=== PATIENT | female | born 1955 | race Caucasian/White ===

== ENCOUNTER 2018-05-08 13:00 | Outpatient (RCR) | payer OTHER, SELFPAY ==
--- NOTE | 2018-01-09 17:37 | HP.PTEVAL ---
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 Date of Evaluation: 01/09/18 Physical Therapist: Jeannie Manuel - Visit Plan Frequency: 2x /Week Duration: 4 Weeks Plan: 2X/ week for 4 weeks for AT for R IT band stretching, core stability, hip strengthening, foam rolling to R IT band, deep water hang with HEP. PT was given wall IT band stretch with keeping her trunk upright (she was doing this at home with a flexed trunk which was not stretchign the IT band). - Subjective Subjective: Pt has been dealing with sciatica since April. The pain is more across the R hip and down to about mid lateral thigh. A little across the LB but mostly in the hip. Incidious onset. When she goes to get up it is bothersome. She can sit and stand but transitions and standing in one spot bother her. Once she gets going it is fine. She has had a cortizone shot in her R hip and it has helped somewhat. She has had tingling in B heels...it does not last long and it is not genrall at the same time. She is not DM. L foot bunionectomy a few years ago and now she has to have surgery again. She has had an x-ray and an MRI a few weeks ago. Going up stairs really bothers it, laying on it bothers is. Lying on side on on back in bed bothers it. Pt has had PT for this and she had traction and that helped temporarily. Pt reports that her hip hurts worse than her back. She takes no meds except once in awhile an Alieve. - Pain Back pain Pain Intensity (Out of 10): 1 Pain Intensity Range: 8 R hip pain Pain Intensity (Out of 10): 3 Pain Intensity Range: 8 - Objective Gait: Walks with decrease stance time on the R LE. Flexability: Tight R IT Band, good R piriformis length (pt was doing Wall IT band stretch but was doing it with a flexed trunk. She felt more of the stretch with trunk into extension. Palpation: tight at greater trochanter and along IT band. No tenderness along R piriformis muscle belly. LE MMT: hip flex R 3+/5 and L 4/5, hip abd R 3-/5 and L 4-/5, able to do 3/4 ROM bridge, B hip extension 3+/5, Knee flex R 4-/5 and L 4/5, B knee ext 4/5. -SLUMP test. Prone press up 3/4 normal ROM with no pain....[facility] pt reports that it makes no difference in the hip pain. - Goals Goal 1:: I HEP Goal Time Frame: 4-6 Weeks Goal 2:: decrease hip pain and back pain to 1/10 or less with ADL's and transitions such as sit to stand Goal Time Frame: 4-6 Weeks Goal 3:: Increase R hip by 1/2 muscle grade (MMT at the time of eval LE MMT: hip flex R 3+/5 and L 4/5, hip abd R 3-/5 and L 4-/5, able to do 3/4 ROM bridge, B hip extension 3+/5, Knee flex R 4-/5 and L 4/5, B knee ext 4/5). Goal Time Frame: 4-6 Weeks Goal 4:: No pain with standing R IT band stretch and perform with proper form Goal Time Frame: 4-6 Weeks - Rehabilitation Potential Rehabilitation Potential: Good - Anticipated Interventions Patient/Client Instruction: Educate patient on: Plan of Care For the Purpose of:: To decrease pain, To decrease swelling/inflammation, To increase ROM, To improve nutrient delivery to tissue, To improve muscle performance and motor function, To improve ability to perform ADL's, To increase tolerance to activity/condition/position, To improve performance and independence with ADL's, To improve ability of physical actions for home/community/work/leisure, To improve gait and locomotor functions, To improve health of tissue, To decrease soft tissue restriction, To increase flexibility/ROM Therapeutic Exercise to Include: Strength training, Flexibilty training, In an aquatic setting, Passive ROM, Active ROM, Dynamic Lumbar Stabilization For the Purpose of:: To decrease pain, To decrease swelling/inflammation, To increase ROM, To improve nutrient delivery to tissue, To improve muscle performance and motor function, To improve ability to perform ADL's, To increase tolerance to activity/condition/position, To improve performance and independence with ADL's, To improve gait and locomotor functions, To improve health of tissue, To decrease soft tissue restriction, To improve endurance Manual Therapy Techniques to Include: Passive ROM, Soft tissue mobilization For the Purpose of:: To decrease pain, To improve nutrient delivery to tissue, To improve muscle performance and motor function, To increase tolerance to activity/condition/position, To improve health of tissue, To decrease soft tissue restriction, To increase flexibility/ROM Thank you for the opportunity to evaluate your patient. For Medicare and Medicare HMO plans, please review the plan of care and approve it. It will need to be FAXED BACK to us at [phone] for Medicare purposes. Please let me know if there are questions or concerns regarding this plan of care. Physician Signature: Date:
--- NOTE | 2018-04-03 17:51 | HP.PTREVAL_ITS ---
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 Please see the progress note below for an update on the physical therapy plan of care! Subjective: Pt came into the clinic saying that she saw Dr Broderick on Monday and she reports that the Dr wanted massage and DN. Pt reports that the Dr was suppossed to send over the PT order which we did not recieve. Pt reports that she is much better since the water therapy and she is even sleeping currently. SHe just started with the weights in the pool.... She is thinking about joining to do a health and wellness memebership to continue with the water therapy. Sitting is no back pain. When she goes to stand up her pain is about a 2/10 pain with transitions. She reports that every step she takes that she feels cracking in her spine. Objective/Function: pt was able to run through her pool indep. routine needing some vc's and tips on how to hold correct posture and progress the ex. Plan Plan: Pt to get order for DN and for neck pain. A NEW EVAL for neck pain will have to be done. Trial of DN to back and R hip. Pt to look into post-rehab membership to keep up I water exercises on her own. Pt to try 1-2 sessions of DN to see if it helps her LBP. Goals Goal 1:: I HEP Goal Time Frame: 4-6 Weeks Goal Progress: Goal Met Goal 2:: decrease hip pain and back pain to 1/10 or less with ADL's and transitions such as sit to stand Goal Time Frame: 4-6 Weeks Goal Progress: Progressing Goal 3:: Increase R hip by 1/2 muscle grade (MMT at the time of eval LE MMT: hip flex R 3+/5 and L 4/5, hip abd R 3-/5 and L 4-/5, able to do 3/4 ROM bridge , B hip extension 3+/5, Knee flex R 4-/5 and L 4/5, B knee ext 4/5). Goal Time Frame: 4-6 Weeks Goal Progress: Progressing Goal 4:: No pain with standing R IT band stretch and perform with proper form Goal Time Frame: 4-6 Weeks Goal Progress: Goal Met Anticipated Interventions Patient/Client Instruction: Educate patient on: Plan of Care For the Purpose of:: To decrease pain, To decrease swelling/inflammation, To increase ROM, To improve nutrient delivery to tissue, To improve muscle performance and motor function, To improve ability to perform ADL's, To increase tolerance to activity/condition/position, To improve performance and independence with ADL's, To improve ability of physical actions for home/ community/work/leisure, To improve gait and locomotor functions, To improve health of tissue, To decrease soft tissue restriction, To increase flexibility/ ROM Therapeutic Exercise to Include: Strength training, Flexibilty training, In an aquatic setting, Passive ROM, Active ROM, Dynamic Lumbar Stabilization For the Purpose of:: To decrease pain, To decrease swelling/inflammation, To increase ROM, To improve nutrient delivery to tissue, To improve muscle performance and motor function, To improve ability to perform ADL's, To increase tolerance to activity/condition/position, To improve performance and independence with ADL's, To improve gait and locomotor functions, To improve health of tissue, To decrease soft tissue restriction, To improve endurance Manual Therapy Techniques to Include: Passive ROM, Soft tissue mobilization For the Purpose of:: To decrease pain, To improve nutrient delivery to tissue, To improve muscle performance and motor function, To increase tolerance to activity/condition/position, To improve health of tissue, To decrease soft tissue restriction, To increase flexibility/ROM Please do not hesitate to contact me at [phone] by phone or Fax: if you have questions or concerns regarding this new plan of care! Sincerely, Jeannie Manuel
--- NOTE | 2018-04-18 09:25 | HP.PTEVAL2_ITS ---
Patient's Visit Information TRUMAN LAI is a 63 year old F referred to Physical Therapy by Hakeem Broderick with a diagnosis of OA of cervical spine, R cervical radiculopathy. Date of Evaluation: 04/11/18 Physical Therapist: Bharath Maxwell - Visit Plan Frequency: 2x /Week Duration: 4 Weeks Plan: Start with deept STM and DN to bilateral UT, levator scap, mid trap. Add in UT/levator scap stretching, pec stretching. Progress to postural strengthening once pain has reduced. - Subjective Subjective: Pt. is here today for her initial evaluation with diagnosis of OA of cervical spine, R cervical radiculopathy. Pt. reports having increased pain for 4-5 years, but has been worsening over the past few months. Worsens: work, lifting. Decrease pain: lying down, massage. Pt. has trialed most modalities and chiro minimal relief. There is always a baseline pain. Pt. does reports occassional radiatign of pain down R arm, but mostly only goes into shoulder and scapulea. Pt. has not trialed any exercises at this point in time. Pt. is hopeful to reduce symptoms in order to get back to all work/recreational activities without issues. - Pain Cervical spine Intensity: 5 Pain Intensity Range: 3, 8 - Objective Objective: POSTURE: Pt. has FH positioning, rounded shoulders, increased Tspine kyphosis and decreased lumbar lordosis. PALPATION: Increased tenderness at bilateral UT, B levator scapulea, B suboccipitals, B mid trap. NEUROLOGICAL: Pt. has normal neuro signs. ROM: CERVICAL SPINE: flexion - nil loss NE, ext min loss increase NW, rotation R min loss increase NW, rotation L min loss increase NW. Shoulders- bilaterally with in normal limits without increase in symptoms. MMT: cervical isometrics- 5/5 throughout. Shoulders- 5/5 throughout without increase in symptoms. SPECIAL testing- negative spurlings testing bilateraly. + reduction in symptoms with distraction testing. No relief or increase in symptoms with repeated movements. - Goals Goal 1:: Pt. to be I with HEP. Goal Time Frame: 4-6 Weeks Goal 2:: Pt. to have increased cervical ROM by 25% in all directions without increase in symptoms. Goal Time Frame: 4-6 Weeks Goal 3:: Pt. to sleep throughout the night with out increase in symptoms of R arm or cervical spine. Goal Time Frame: 4-6 Weeks Goal 4:: Pt. to completed work day with 0-1/10 pain in cervical spine and R arm. Goal Time Frame: 4-6 Weeks Goal 5:: Pt. to demonstrae improved posture througout PT session indicating increased postural awareness. Goal Time Frame: 4-6 Weeks - Rehabilitation Potential Physical Therapy Diagnosis: Pt. has signs and symptoms consistent with OA of cervical spine, R cervical radiculopathy. Pt. had no radicular symptoms this date, but reports some in recent history. Pt. has poor posture and marked tight musculature throughout cervical spine and scapular region. Pt. would benefit from PT address above issues with progression back to all work and recreational activiteis without limitations. Rehabilitation Potential: Good - Anticipated Interventions Patient/Client Instruction: Educate patient on: Condition, Plan of Care, Risk Factors, Benefits of Fitness Program For the Purpose of:: To improve safety, To improve health and function, To foster healthy habits, To improve decision making, To facilitate caregiver knowledge, To improve self management, To prevent re-injury, To improve ability to perform tasks related to life management, To improve tolerance to ADL's Therapeutic Exercise to Include: Strength training, Power training, Postural training, Flexibilty training, Passive ROM, Active ROM, Moustapha Exercises, Scapular Strength/Stabilization For the Purpose of:: To decrease pain, To increase ROM, To improve nutrient delivery to tissue, To increase oxygenation perfusion, To improve muscle performance and motor function, To improve ability to perform ADL's, To improve health of tissue, To decrease soft tissue restriction, To improve endurance Manual Therapy Techniques to Include: Trigger point massage, Mobilization, Passive ROM, Functional dry needling, Soft tissue mobilization For the Purpose of:: To decrease pain, To decrease swelling/inflammation, To increase ROM, To improve nutrient delivery to tissue, To increase oxygenation perfusion, To improve muscle performance and motor function, To improve ability to perform ADL's Ultrasound (thermal/non thermal): Yes For the Purpose of:: To decrease pain, To decrease swelling/inflammation Thank you for the opportunity to evaluate your patient. For Medicare and Medicare HMO plans, please review the plan of care and approve it. It will need to be FAXED BACK to us at [phone] for Medicare purposes. Please let me know if there are questions or concerns regarding this plan of care. Physician Signature: Date:
--- NOTE | 2018-07-18 17:57 | HP.PTDCNRP_ITS ---
HP - Discharge Summary (1) - Patient Information TRUMAN LAI was seen in my office for initial evaluation on 01/09/18. The following Plan of Care was established for this patient: Initial Frequency: 2x /Week Initial Duration: 4 Weeks - Anticipated Interventions Patient/Client Instruction: Educate patient on: Plan of Care For the Purpose of:: To decrease pain, To decrease swelling/inflammation, To increase ROM, To improve nutrient delivery to tissue, To improve muscle performance and motor function, To improve ability to perform ADL's, To increase tolerance to activity/condition/position, To improve performance and independence with ADL's, To improve ability of physical actions for home/ community/work/leisure, To improve gait and locomotor functions, To improve health of tissue, To decrease soft tissue restriction, To increase flexibility/ ROM Therapeutic Exercise to Include: Strength training, Flexibilty training, In an aquatic setting, Passive ROM, Active ROM, Dynamic Lumbar Stabilization For the Purpose of:: To decrease pain, To decrease swelling/inflammation, To increase ROM, To improve nutrient delivery to tissue, To improve muscle performance and motor function, To improve ability to perform ADL's, To increase tolerance to activity/condition/position, To improve performance and independence with ADL's, To improve gait and locomotor functions, To improve health of tissue, To decrease soft tissue restriction, To improve endurance Manual Therapy Techniques to Include: Passive ROM, Soft tissue mobilization For the Purpose of:: To decrease pain, To improve nutrient delivery to tissue, To improve muscle performance and motor function, To increase tolerance to activity/condition/position, To improve health of tissue, To decrease soft tissue restriction, To increase flexibility/ROM This patient was last seen in our office 03/28/18. Pertinent comments regarding their Physical therapy will appear below: REYMUNDO PT At this point I will be discontinuing this patient from physical therapy. I would be happy to see this patient again in the future if found appropriate by the physician. Thank you! Jeannie Manuel
--- NOTE | 2018-07-18 17:57 | HP.PT.NRP(2) ---
HP - Discharge Summary (2) - Patient Information TRUMAN LAI was seen in my office for initial evaluation on 04/11/18. The following Plan of Care was established for this patient: Initial Frequency: 2x /Week Initial Duration: 4 Weeks Plan from Re-Evaluation: Pt. to trial on own for 2-3 weeks to determine if able to self manage. Pt. to follow up with PT if needed. I will DC case if I do not hear from here in ~5-6 weeks. - Anticipated Interventions Patient/Client Instruction: Educate patient on: Condition, Plan of Care, Risk Factors, Benefits of Fitness Program For the Purpose of:: To improve safety, To improve health and function, To foster healthy habits, To improve decision making, To facilitate caregiver knowledge, To improve self management, To prevent re-injury, To improve ability to perform tasks related to life management, To improve tolerance to ADL's Therapeutic Exercise to Include: Strength training, Power training, Postural training, Flexibilty training, Passive ROM, Active ROM, Moustapha Exercises, Scapular Strength/Stabilization For the Purpose of:: To decrease pain, To increase ROM, To improve nutrient delivery to tissue, To increase oxygenation perfusion, To improve muscle performance and motor function, To improve ability to perform ADL's, To improve health of tissue, To decrease soft tissue restriction, To improve endurance Manual Therapy Techniques to Include: Trigger point massage, Mobilization, Passive ROM, Functional dry needling, Soft tissue mobilization For the Purpose of:: To decrease pain, To decrease swelling/inflammation, To increase ROM, To improve nutrient delivery to tissue, To increase oxygenation perfusion, To improve muscle performance and motor function, To improve ability to perform ADL's Ultrasound (thermal/non thermal): Yes For the Purpose of:: To decrease pain, To decrease swelling/inflammation This patient was last seen in our office . Pertinent comments regarding their Physical therapy will appear below: DC PT At this point I will be discontinuing this patient from physical therapy. I would be happy to see this patient again in the future if found appropriate by the physician. Thank you! Jeannie Manuel
== END 2018-05-08 19:00 | disposition home or self-care (01) ==
LOC: PT 13:00
PROVIDERS: Family Provider Student in an Organized Health Care Education/Training Program; PCP Student in an Organized Health Care Education/Training Program; Visit Provider Student in an Organized Health Care Education/Training Program
DX: M47.817 Spondylosis without myelopathy or radiculopathy, lumbosacral region (principal); M54.17 Radiculopathy, lumbosacral region; M54.41 Lumbago with sciatica, right side; G89.29 Other chronic pain
CPT/HCPCS: 97110; 97113; 97140; 97161; 97164; 97530

== ENCOUNTER 2018-07-19 11:39 | Outpatient (RCR) | payer OTHER, SELFPAY | END 2018-07-19 11:39 | disposition home or self-care (01) | LOC: PT 11:39 | PROVIDERS: Family Provider Student in an Organized Health Care Education/Training Program; PCP Student in an Organized Health Care Education/Training Program; Visit Provider Student in an Organized Health Care Education/Training Program | DX: M47.892 Other spondylosis, cervical region (principal); M54.12 Radiculopathy, cervical region; M25.511 Pain in right shoulder; M19.011 Primary osteoarthritis, right shoulder ==

== ENCOUNTER → 2019-02-05 08:20 | Outpatient (CLI) | payer OTHER, SELFPAY ==
[2019-01-24 15:59] VITALS: BMI 24.3
[2019-02-05 10:55] LABS: Absolute Lymphocyte Count 1.56 X10^3/ul (0.83-4.51); Absolute Neutrophil Count 3.3 X10^3/uL (2.0-7.7); Basophil# 0.03 X10^3/uL; Basophil% 0.6 % (0-1); Eosinophil# 0.12 X10^3/uL; Eosinophils% 2.2 % (0-5); Hematocrit 43.8 % (37-47); Hemoglobin 14.6 g/dl (12.0-15.0); Lymphocyte # 1.56 X10^3/ul (4.0); Lymphocyte % 29.1 % (19-41); Mean Corp Hgb Conc 33.3 g/gl (32-36); Mean Corpuscular Hgb 29.6 pg (27.0-32.0); Mean Corpuscular Volume 88.8 fL (81-99); Mean Platelet Vol. 10.6 fl (6.2-12.0); Monocyte% 7.4 % (0-10); Neutrophil # 3.26 X10^3/uL (2.7-7.7); Neutrophil % 60.7 % (47-70); Platelet Count 220 K/mm3 (150-450); RBC Distribution Width CV 12.6 % (11.6-14.6); Red Blood Count 4.93 M/mm3 (4.2-5.4); White Blood Count 5.4 K/mm3 (4.4-11.0)
[2019-02-05 10:56] LABS: POSITIVE COUNT NO; POSITIVE DIFFERENTIAL NO; POSITIVE MORPHOLOGY NO
[2019-02-05 11:23] LABS: Hemoglobin A1c 5.4 % (4.2-6.3)
[2019-02-05 11:26] LABS: Vitamin B12 686 pg/mL (211-911); Vitamin D,25 Hydroxy 46.3 ng/mL (29.95-100.01)
[2019-02-05 11:29] LABS: ALB/GLOB Ratio 1.1 RATIO (0.9-2.4); AST(SGOT) 16 U/L (15-37); Alanine Aminotransfer ALT/SGPT 22 U/L (13-56); Albumin, Serum 3.7 g/dL (3.2-5.0); Alkaline Phosphatase 131 U/L (45-117); Anion Gap 6 (5-15); BUN 10 mg/dL (7-18); BUN/Creat Ratio 18.5 RATIO (10-20); Calcium,Total 9.1 mg/dL (8.5-10.1); Chloride 107 mmol/L (98-107); Cholesterol 202 mg/dL (200); Creatinine, Serum 0.54 mg/dL (0.55-1.02); EST Glomerular Filtration Rate 121 mL/min (>60); Est Glom Filt Rate - Afr Amer 147 mL/min (>60); Free T3 6.3 pg/mL (2.18-3.98); Globulin 3.5 g/dL (2.2-4.2); Glucose 77 mg/dL (74-106); High Density Lipoprotein 76 mg/dL; Potassium 4.2 mmol/L (3.5-5.1); Protein, Total 7.2 g/dL (6.4-8.2); Sodium Level 143 mmol/L (136-145); T4 Free Direct 1.16 ng/dL (0.76-1.46); Thyroid Stim Hormone (TSH) 0.09 uIU/mL (0.358-3.74); Triglycerides 50 mg/dL; Very Low Density Lipoprotein 10 mg/dL (5-40)
== END ==
PROVIDERS: Family Provider Student in an Organized Health Care Education/Training Program; PCP Student in an Organized Health Care Education/Training Program; Referring Provider Student in an Organized Health Care Education/Training Program; Visit Provider Student in an Organized Health Care Education/Training Program
DX: Z00.00 Encounter for general adult medical examination without abnormal findings (principal); R53.83 Other fatigue; E03.9 Hypothyroidism, unspecified; Z12.11 Encounter for screening for malignant neoplasm of colon
CPT/HCPCS: 36415; 80053; 80061; 82306; 82607; 83036; 84439; 84443; 84481; 85025

== ENCOUNTER → 2019-02-08 15:46 | Outpatient (CLI) | payer OTHER, SELFPAY ==
[2019-01-24 15:59] VITALS: BMI 24.3
== END ==
PROVIDERS: Family Provider Student in an Organized Health Care Education/Training Program; PCP Student in an Organized Health Care Education/Training Program; Referring Provider Student in an Organized Health Care Education/Training Program; Visit Provider Student in an Organized Health Care Education/Training Program
DX: Z00.00 Encounter for general adult medical examination without abnormal findings (principal); Z12.11 Encounter for screening for malignant neoplasm of colon
CPT/HCPCS: 82274

== ENCOUNTER 2019-03-23 16:24 | Inpatient (IN) | payer OTHER, SELFPAY ==
[2019-01-24 15:59] VITALS: BMI 24.3
[2019-03-23] VITALS (9 sets, daily range): BP systolic 157–186; BP diastolic 72–92; PULSE 52–77; RESP 14–20; TEMP 36.4–36.6; O2SAT 95–99; BMI 29.1; BMI 24.8
--- NOTE | 2019-03-23 16:33 | CT_ITS ---
STUDY: CT BRAIN WITHOUT CONTRAST REASON FOR EXAM: Female, 64 years old. Acute onset of dizziness, nausea and vomiting, headache, tingling in hands. RADIATION DOSAGE (If Supplied By Facility): CTDIvol = ( 44.99 ) mGy, DLP = ( 745.49 ) mGycm TECHNIQUE: Transaxial CT imaging of the brain was performed without administration of intravenous contrast material. Individualized dose optimization techniques were used for this CT. COMPARISON: No relevant priors. FINDINGS: Normal soft tissue structures. Normal calvarium. Normal size ventricles and extra-axial spaces for the patient's age. There are subtle areas of decreased attenuation within the white matter tracts of the supraventricular brain and posterior horn of the right internal capsule, consistent with microvascular disease versus other demyelinating changes. Normal basal ganglia and thalami. Normal brainstem. Normal cerebellum. There is no intracranial hemorrhage. There are no findings of an acute ischemic infarction. Normal visualized paranasal sinuses. CT/Brain/Head without Contrast IMPRESSION: Subtle chronic changes of microvascular ischemia versus other demyelinating process. One might consider correlation with MRI. Electronically Signed: Parth Escobedo MD at 17:54 EDT , Service support ,
[2019-03-23] MEDS: Ondansetron 4 MG/2 ML Vial IV (16:43)
[2019-03-23] MEDS: 0.9% Normal Saline 1,000 ML 1000 ML IV (16:44)
[2019-03-23 17:02] LABS: Absolute Neutrophil Count 4.1 X10^3/uL (2.0-7.7); Basophil# 0.02 X10^3/uL; Basophil% 0.3 % (0-1); Eosinophil# 0.09 X10^3/uL; Eosinophils% 1.4 % (0-5); Hematocrit 39.2 % (37-47); Hemoglobin 13.5 g/dl (12.0-15.0); Lymphocyte % 27.8 % (19-41); Mean Corp Hgb Conc 34.4 g/gl (32-36); Mean Corpuscular Hgb 29.7 pg (27.0-32.0); Mean Corpuscular Volume 86.2 fL (81-99); Mean Platelet Vol. 9.8 fl (6.2-12.0); Monocyte# 0.49 X10^3/uL; Monocyte% 7.6 % (0-10); Neutrophil # 4.06 X10^3/uL (2.7-7.7); Neutrophil % 62.7 % (47-70); Platelet Count 187 K/mm3 (150-450); RBC Distribution Width CV 12.4 % (11.6-14.6); Red Blood Count 4.55 M/mm3 (4.2-5.4); White Blood Count 6.5 K/mm3 (4.4-11.0)
[2019-03-23 17:03] LABS: POSITIVE COUNT NO; POSITIVE DIFFERENTIAL NO; POSITIVE MORPHOLOGY NO
[2019-03-23 17:11] LABS: Anion Gap 8 (5-15); BUN 12 mg/dL (7-18); BUN/Creat Ratio 18.4 RATIO (10-20); Calcium,Total 8.7 mg/dL (8.5-10.1); Chloride 107 mmol/L (98-107); Creatinine, Serum 0.65 mg/dL (0.55-1.02); EST Glomerular Filtration Rate 98 mL/min (>60); Est Glom Filt Rate - Afr Amer 118 mL/min (>60); Estimated Creatinine Clearance 73.28 ml/min; Glucose 118 mg/dL (74-106); Potassium 3.1 mmol/L (3.5-5.1); Sodium Level 141 mmol/L (136-145)
[2019-03-23] MEDS: Metoclopramide 10 MG/2 ML Vial 5 MG IV ×2 (17:12→18:39)
--- NOTE | 2019-03-23 17:44 | ED.VIS.GEN ---
History of Present Illness Chief Complaint: Dizziness Detail of Chief Complaint: Retro-orbital discomfort and occipital headache Informant: Patient, Family Onset: Today Context: Sudden Onset Timing: Continuous Quality: Retro-orbital pressure and occipital headache with nausea and vomiting Current Severity: Mild Maximum Severity: Moderate Worsened by: Nothing per patient Relieved by: Nothing per patient Associated Symptoms: No ocular symptoms positive nausea and vomiting Narrative: Patient is a 64-year-old woman who presents with a retro-orbital discomfort that started this morning followed by occipital headache associated with nausea and vomiting. Patient also complains of vertigo. She states is unable to stand. She denies double vision, blurred vision loss of vision. She denies trouble speech or swallowing. Denies paresthesia, anesthesia motors. Denies cardiac arrest story symptoms. She reports movement of her head does not exacerbate her symptoms. There is a family history of subarachnoid hemorrhage/aneurysm. Prior similar symptoms: No Recent Illness/Hospitalization: No Past Medical History - Allergies and Home Meds Allergies/Adverse Reactions: Allergies morphine Allergy (Mild, Verified 01/24/19 16:00) unknown sulfamethoxazole [From Bactrim] Allergy (Mild, Verified 01/24/19 16:00) unknown tea tree Allergy (Mild, Verified 01/24/19 16:00) unknown trimethoprim [From Bactrim] Allergy (Mild, Verified 01/24/19 16:00) unknown Primary Care Physician: Hakeem Broderick DO [Primary Care Provider] - Prior records reviewed: No Surgical History: noncontributory - Multiple orthopedic operations Lives: Alone Smoking Status: Former smoker Drugs: None Review of Systems General: Reports: Chills. Denies: Fever, Malaise, Subjective, Sweats, Weight loss, - Eyes: Denies: Visual changes - bilaterally, Blurred Vision - bilaterally, Diplopia ENT: Denies: Bilateral ear pain, Rhinorrhea, Sore throat Cardiovascular: Denies: Chest pain, Palpitations Respiratory: Denies: Dyspnea, Cough, Dyspnea on exertion Gastrointestinal: Reports: Nausea, Vomiting. Denies: Abdominal pain, Diarrhea, Constipation, Melena, Hematochezia Genitourinary: Denies: Dysuria, Hematuria, Frequency Musculoskeletal: Denies: Myalgias, Arthralgias, Neck pain, Back pain, Swelling, Extremity Pain Skin: Denies: Rash, Wounds Neurological: Reports: Headache, Weakness. Denies: Parasthesia, Numbness Psych: Denies: Depression, Anxiety Endocrine: Denies: Polyuria, Polydipsia Hematologic: Denies: Easy bruising, Easy bleeding Physical Exam Vital Signs/Narrative: Vital Signs Temp Pulse Resp BP Pulse Ox 03/23/19 16:33 71 16 160/92 H 97 03/23/19 16:26 97.5 F L 68 16 160/92 H 99 Inital Vital Signs reviewed: Yes General: Well nourished, Well developed, Acute Distress Head: Normocephalic, Atraumatic Eyes: Perrl, EOMI. Negative for: Pale conjunctiva, Scleral icterus, - ENT: No rhinorrhea, TM's clear, Dry mucous membranes Cardiovascular: Regular rate, Regular rhythm, No murmurs, Normal S1, Normal S2 Respiratory: No distress, CTA bilaterally, Chest nontender Abdomen: Soft, Nontender, Nondistended, Normal bowel sounds, No masses Back: Nontender, Normal Inspection. Negative for: CVA tenderness, Spinal tenderness Extremities: Nontender, No edema Skin: No rash, No Trauma, Pallor. Negative for: Cyanosis, Diaphoresis, Jaundice Neurological: Alert, Oriented x3, Cranial nerves II-XII grossly intact, Normal Strength, Normal Sensation, Normal DTR Psychological: Normal affect, Normal Mood Diagnostic/Tx/Re-eval - Medical Decision Making Abrupt onset of headache nausea vomiting will obtain CT of the head to evaluate for intracranial bleed and specifically subarachnoid hemorrhage. None noted. Blood work is unremarkable. Potassium is slightly low at 3.1 and glucose is slightly elevated at 118. We will perform Thelma-Hallpike maneuver to determine if this exacerbates her dizziness. Since work-up is unremarkable and she has a nonfocal neurologic exam will perform Thelma-Hallpike maneuver. If negative will perform eye askew test and hint test. [place]-Hallpike maneuver was performed with repeat reduction of her symptoms with nystagmus. Patient is presently actively vomiting. Will administer an additional dose of Reglan and 2.5 mg of Benadryl to prevent dystonic reaction. 10 to 15 minutes after she receives additional dose of Reglan and will perform Natty maneuver. Procedures Procedure(s): Natty maneuver performed. Patient's vertigo and nystagmus resolved. She still complains of mild nausea. Plan is to discharge with prescription for Valium 2 mg 3 times daily #10 and Zofran 4 mg ODT #5 ED Disposition - Plan for ED Patient: Disposition: Home or Assisted Living Diagnosis: Benign paroxysmal positional vertigo Instructions: ED BPV Vertigo Prescriptions: Ondansetron [Zofran Odt] 4 mg PO Q8H PRN PRN #5 tablet PRN Reason: Nausea Diazepam [Valium] 2 mg PO TID 3 Days #10 tablet Referrals: Hakeem Broderick DO [Primary Care Provider] - As Needed Additional Instructions: Your prescription was electronically transmitted to [facility] pharmacy on [address] your designated pharmacy of choice.
[2019-03-23] MEDS: DiphenhydrAMINE 50 MG/ML Syringe 12.5 MG IV (18:39)
--- NOTE | 2019-03-23 20:20 | ED.RN ---
pt was to be discharged. iv d/c and covered with gauze. this rn assisted pt in dressing. pt requested to use restroom, and wheeled in wheelchair to restroom. pt began vomiting again. dr. guzman informed. reports she is not to be discharged. pt placed in room placed into gown and on monitor. called for ekg.
--- NOTE | 2019-03-23 20:30 | HP.PCM_ITS ---
Problem List (1) Vertigo Status: Acute History of Present Illness Date of Admission: 03/23/19 Chief Complaint: VERTIGO The patient is a 64 year old F with a significant history of hypothyroidism; and depression who presented to the emergency department because of vertigo that started few hours before presentation. Her vertigo worsens when she moves her head; and it improves when the head is still. Associated with her symptoms is occipital headache; nausea and vomiting. Also reportedly she felt hot. At the emergency department she felt better after Natty maneuver. However after using the restroom her vertiginous symptoms returned and she looked pale. Subsequently she was given Valium and admitted. Past Medical History Medical History: Medical History (Last Reviewed 03/23/19 @ 21:15 by Logan Roy MD) Arthritis M19.90 Hay fever J30.1 Hemorrhoids K64.9 Shoulder pain M25.519 Thyroid disease E07.9 Chronic neck and back pain M54.2, M54.9, G89.29 Allergies morphine Allergy (Mild, Verified 01/24/19 16:00) unknown sulfamethoxazole [From Bactrim] Allergy (Mild, Verified 01/24/19 16:00) unknown tea tree Allergy (Mild, Verified 01/24/19 16:00) unknown trimethoprim [From Bactrim] Allergy (Mild, Verified 01/24/19 16:00) unknown Home Medications: Ambulatory Orders Medication Instructions Recorded fluoxetine 40 mg capsule 40 mg PO DAILY 01/24/19 Diazepam [Valium] 2 mg PO TID 3 Days #10 tablet 03/23/19 Ondansetron [Zofran Odt] 4 mg PO Q8H PRN PRN #5 tablet 03/23/19 Surgical History: rotator cuff repair, - - Wrist surgery; left foot surgery. Lives: Alone Smoking Status: Former smoker Drugs: None - *Family History Maternal History Items: Diabetes, Heart Disease, - - Maternal grandmother had brain aneurysm and subarachnoid hemorrhage Paternal History Items: Cancer - Lung cancer Review of Systems Constitutional: Denies: Chills, Fever, Weight Change HEENT: Reports: Head Aches. Denies: Sinus Congestion, Sinus Drainage Cardiovascular: Denies: Chest Pain, Palpitations Respiratory: Denies: Cough, Shortness of breath at rest, Sputum production Gastrointestinal: Reports: Nausea, Vomiting. Denies: Abdominal Pain Genitourinary: Denies: Dysuria Musculoskeletal: Denies: Joint Pain, Joint Tenderness Skin: Denies: Rash, Wounds Neurological: Denies: Numbness, Tingling, Focal weakness Psychiatric: Denies: Anxiety, Depression, Homicidal Ideations, Suicidal Ideations Hematologic/ Lymphatic: Denies: Easy Bruising, Easy Bleeding VTE Information - Inpt Only VTE Present on Admission: No VTE Mechan Device Prophylaxis: None VTE Pharm Prophylaxis ordered?: Yes Patient Problems: Active and Suspected Problems (Last Reviewed 03/23/19 @ 21:12 by Logan Roy MD) Benign paroxysmal positional vertigo (Acute) Vertigo (Acute) - Physical Exam General: Alert, Oriented x3, Cooperative HEENT: Atraumatic, PERRLA, EOMI, Normocephalic Neck: Supple, No JVD, Negative Carotid Bruits Lungs: Clear to auscultation, Normal air movement Cardiovascular: Regular rate, No murmurs Abdomen: Bowel Sounds Present, Soft, Non Tender Extremities: No edema, Capillary Refill Less than 3 Seconds Skin: No rashes, No breakdown Musculoskeletal: No Tenderness to Palpation of Joints or Extremities Neurological: Cranial nerves II-XII grossly intact, - - Thelma-Hallpike maneuver was unremarkable. Psych/Mental Status: Normal Affect, Appropriate Vital Signs Temp Pulse Resp BP Pulse Ox 97.5 F L 69 16 159/83 H 96 03/23/19 16:26 03/23/19 19:00 03/23/19 19:00 03/23/19 19:00 03/23/19 18:02 Oxygen Delivery Method Room Air Weight: 74.6 kg Body Mass Index (BMI) 29.1 Laboratory Tests Past 24 Hrs 03/23/19 03/23/19 16:50 16:50 WBC 6.5 RBC 4.55 Hgb 13.5 Hct 39.2 MCV 86.2 MCH 29.7 MCHC 34.4 RDW 12.4 RDW Differential 39.0 Plt Count 187 MPV 9.8 Immature Gran % (Auto) 0.200 Neut % (Auto) 62.7 Lymph % (Auto) 27.8 [place] % (Auto) 7.6 Eos % (Auto) 1.4 Baso % (Auto) 0.3 Absolute Neuts (auto) 4.1 Absolute Lymphs (auto) 1.80 Total Counted Not Reportable Sodium 141 Potassium 3.1 L Chloride 107 Carbon Dioxide 26.0 Anion Gap 8 BUN 12 Creatinine 0.65 Estim Creat Clear Calc 73.28 Est GFR (MDRD) Af Amer 118 Est GFR (MDRD) Non-Af 98 BUN/Creatinine Ratio 18.4 Glucose 118 H Calcium 8.7 Assessment/Plan All Active Problems (Last Reviewed 03/23/19 @ 21:12 by Logan Roy MD) Benign paroxysmal positional vertigo (Acute) Vertigo (Acute) The patient is a 64 year old F with a significant history of hypothyroidism; and depression who presented to the emergency department because of vertigo that worsens with head movement and was noted to improved with Natty maneuver at the emergency department. Vertigo Most likely benign paroxysmal positional vertigo. CT of the head was unremarkable Physical therapy to teach patient vestibular exercises and to do Natty maneuver. 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 Different diagnosis include central source of vertigo; M?ni?re's disease vestibular neuritis. Permissive hypertension. Control blood pressure with labetalol for systolic blood pressure of more than 220 or diastolic blood pressure of more than 120. Continue permissive hypertension until about 4 PM of 03/24/2019. MRI/MRAM of head; brain; and neck. Scheduled meclizine; and PRN Ativan ordered. Because of prolonged QT Zofran was not ordered. Reglan as needed. Received normal saline bolus at emergency department. Lactated Ringer's ordered. Hypokalemia On presentation potassium was 3.1 K-Dur 60mg ordered. Lactated Ringer's ordered. Trend BMP. QT prolongation Check magnesium level. Hypothyroidism [place] Thyroid continued Depression Fluoxetine ordered. DVT Prophylaxis Subcutaneous Lovenox. Code Visit OBSV E&M: 42344 Initial observation care L3
--- NOTE | 2019-03-23 20:34 | ED.RN ---
PT ATTEMPTED TO DISCHARGE HOME, UNABLE TO GET INTO CAR, NAUSEA AND VOMITING WORSE ALONG WITH DIZZINESS. PT BROUGHT BACK INTO DEPARTMENT, PLACED IN BED. AWARE.
--- NOTE | 2019-03-23 20:43 | EKG12_ITS ---
Test Reason : GEN ILL Blood Pressure : / mmHG Vent. Rate : 067 BPM Atrial Rate : 067 BPM P-R Int : 188 ms QRS Dur : 096 ms QT Int : 464 ms P-R-T Axes : 074 009 008 degrees QTc Int : 490 ms Normal sinus rhythm Minimal voltage criteria for LVH, may be normal variant Nonspecific ST abnormality Prolonged QT Abnormal ECG Confirmed by MARIANA BYRD, JUSTINA ([id number]), business editor CHRIS JONES ([id number] on 03/25/2019 3:47:07 PM Referred By: Logan Roy Confirmed By:JUSTINA PEÑA MD
[2019-03-23] MEDS: diazePAM 5 MG Tablet PO (20:50)
[2019-03-23 21:53] LABS: Magnesium 1.7 mg/dL (1.6-2.6)
[2019-03-23] MEDS: Meclizine 12.5 MG Tablet PO (22:16)
[2019-03-23] MEDS: 0.9% NaCl Peripheral Flush Adult/Peds IV (22:16)
[2019-03-23] MEDS: Lactated Ringers 1,000 ML 100 ML IV (22:16)
[2019-03-24] VITALS (8 sets, daily range): BP systolic 126–146; BP diastolic 50–82; PULSE 64–84; RESP 16–18; TEMP 36.7–36.9; O2SAT 95–97; BMI 24.8
[2019-03-24] MEDS: Thyroid 60 MG Tablet 90 MG PO (05:53)
[2019-03-24] MEDS: Meclizine 12.5 MG Tablet PO ×2 (05:53→13:31)
[2019-03-24 05:55] LABS: Anion Gap 8 (5-15); BUN 8 mg/dL (7-18); Calcium,Total 8.8 mg/dL (8.5-10.1); Chloride 106 mmol/L (98-107); Cholesterol 196 mg/dL (200); EST Glomerular Filtration Rate 132 mL/min (>60); Est Glom Filt Rate - Afr Amer 160 mL/min (>60); Estimated Creatinine Clearance 95.27 ml/min; Glucose 133 mg/dL (74-106); High Density Lipoprotein 81 mg/dL; Potassium 3.8 mmol/L (3.5-5.1); Sodium Level 140 mmol/L (136-145); Triglycerides 35 mg/dL; Very Low Density Lipoprotein 7 mg/dL (5-40)
[2019-03-24] MEDS: 0.9% NaCl Peripheral Flush Adult/Peds IV ×3 (09:03→17:54)
[2019-03-24] MEDS: Enoxaparin 40 MG/0.4 ML Syringe SC (09:03)
[2019-03-24] MEDS: Metoclopramide 10 MG/2 ML Vial 5 MG IV (09:03)
--- NOTE | 2019-03-24 10:45 | MRI_ITS ---
We are attempting to reach an attending provider to discuss findings. An addendum with communication details will be sent when the communication is complete. STUDY: MRI BRAIN WITHOUT CONTRAST REASON FOR EXAM: Female, 64 years old. CVA,VERTIGO. TECHNIQUE: Standardized multiplanar fat and water weighted pulse sequences were obtained. COMPARISON: 03/23/2019 FINDINGS: Normal size of the ventricles and extra-axial spaces for the patient's age. Normal white matter tracts of the supratentorial brain. There is restricted diffusion measuring up to 4 x 1.7 cm. Of the inferior right cerebellar hemisphere. There is minimal mass effect on the posterior medulla. There is drop of signal on the ADC map, consistent with acute infarct. Normal bilateral basal ganglia. Normal thalami. There is no extra-axial fluid accumulation. Normal flow voids within the major intracranial circulation suggesting patency by spin echo criteria. Normal sella turcica, pituitary gland, infundibular stalk, optic chiasm and hypothalamus. Normal tectal plate and pineal gland. MRI/Brain without Contrast IMPRESSION: Acute right cerebellar infarct. Minimal mass effect on the brainstem. Electronically Signed: Tyler Castro MD at 12:34 EDT Tel , Service support ,
--- NOTE | 2019-03-24 10:45 | MRI_ITS ---
STUDY: MRA OF THE HEAD WITHOUT CONTRAST REASON FOR EXAM: Female, 64 years old. CVA,VERTIGO. TECHNIQUE: 3-D [id number] (TOF) imaging was performed with MIPs. The study was performed unenhanced. COMPARISON: None. FINDINGS: Normal bilateral petrous carotid arteries. Normal right cavernous carotid artery with a normal supraclinoid bifurcation. Normal left cavernous carotid artery with a normal supraclinoid bifurcation. Normal right A1 segments of the anterior cerebral artery. Normal left A1 segments of the anterior cerebral artery. Normal intact anterior communicating artery (ACOM). Normal bilateral A2 segments of the anterior cerebral arteries. Normal right M1 and M2 segments of the middle cerebral arteries, with a normal M1 bifurcation. Normal left M1 and M2 segments of the middle cerebral arteries, with a normal M1 bifurcation. Normal right posterior communicating artery (PCOM). Normal left posterior communicating artery (PCOM). There is occlusion of the right vertebral artery. Normal basilar artery with a normal basilar bifurcation. Normal bilateral segments of the posterior cerebral arteries. There is no demonstrated aneurysm of the [place]. MRI/MRA Head ONLY without Contrast IMPRESSION: Occlusion of the right vertebral artery. Further evaluation with CTA can be obtained. Electronically Signed: Tyler Castro MD at 12:39 EDT Tel , Service support ,
--- NOTE | 2019-03-24 10:45 | MRI_ITS ---
STUDY: MRA NECK WITHOUT CONTRAST REASON FOR EXAM: Female, 64 years old. CVA, VERTIGO. TECHNIQUE: Source images were obtained, MIPs were performed. The study was performed unenhanced. COMPARISON: None. FINDINGS: RIGHT CAROTID ARTERIES: Antegrade flow within the right common carotid artery (CCA). Antegrade flow within the right carotid bulb. Antegrade flow within the right internal carotid (ICA) artery. Antegrade flow within the visualized cervical portion of the right internal carotid artery. LEFT CAROTID ARTERIES: Antegrade flow within the left common carotid artery (CCA). Antegrade flow within the left common carotid bulb. Antegrade flow within the origin of the left internal carotid (ICA) artery. Antegrade flow within the visualized cervical portion of the left internal carotid artery. VERTEBRAL ARTERIES: There is occlusion of the right vertebral artery which appears to be involving the entire length of the right vertebral artery. The left vertebral artery is patent. There is basilar artery. MRI/MRA Neck WITH and W/O Contrast IMPRESSION: Occlusion of the right vertebral artery. Further evaluation with CTA can be obtained. Electronically Signed: Tyler Castro MD at 12:40 EDT Tel , Service support ,
[2019-03-24] MEDS: Aspirin 81 MG TAB.CHEW PO (13:31)
[2019-03-24] MEDS: FLUoxetine 20 MG Capsule 40 MG PO (13:31)
[2019-03-24 14:14] LABS: Hemoglobin A1c 5.3 % (4.2-6.3)
[2019-03-24 14:15] LABS: Thyroid Stim Hormone (TSH) 0.04 uIU/mL (0.358-3.74)
--- NOTE | 2019-03-24 14:35 | PN_ITS ---
<George Monreal - Last Filed: 03/24/19 14:31> Patient Problems: Active and Suspected Problems (Last Reviewed 03/23/19 @ 21:15 by Logan Roy MD) Benign paroxysmal positional vertigo (Acute) Vertigo (Acute) Subjective: Pt complains of ongoing dizziness with severe nausea upon waking. No MATHIAS. no focal weakness. Generalized all over weakness. She also had some slurring of her speech this AM. No vision changes. no swallowing difficulty. She is somewhat tearful. - Physical Exam General: Alert, Oriented x3, Cooperative HEENT: Atraumatic, PERRLA, EOMI, Normocephalic Neck: Supple, No JVD, Negative Carotid Bruits Lungs: Clear to auscultation, Normal air movement Cardiovascular: Regular rate, No murmurs Abdomen: Bowel Sounds Present, Soft, Non Tender Extremities: No edema, Capillary Refill Less than 3 Seconds Skin: No rashes, No breakdown Musculoskeletal: No Tenderness to Palpation of Joints or Extremities Neurological: Cranial nerves II-XII grossly intact Psych/Mental Status: Normal Affect, Appropriate, Alert and oriented to time, place, person, mood and affect Vital Signs Temp Pulse Resp BP Pulse Ox 98.2 F 79 16 145/68 H 96 03/24/19 13:10 03/24/19 13:10 03/24/19 13:10 03/24/19 13:10 03/24/19 13:10 Oxygen Delivery Method Room Air Weight: 140 lb 3.424 oz Body Mass Index (BMI) 24.8 Intake and Output for Last 24 Hours 03/22/19 03/23/19 03/24/19 23:59 23:59 23:59 Intake Total 1073 / 1073 Output Total 100 / 100 Balance 973 / 973 Laboratory Tests Past 24 Hrs 03/23/19 03/23/19 03/23/19 16:50 16:50 16:50 WBC 6.5 RBC 4.55 Hgb 13.5 Hct 39.2 MCV 86.2 MCH 29.7 MCHC 34.4 RDW 12.4 RDW Differential 39.0 Plt Count 187 MPV 9.8 Immature Gran % (Auto) 0.200 Neut % (Auto) 62.7 Lymph % (Auto) 27.8 [place] % (Auto) 7.6 Eos % (Auto) 1.4 Baso % (Auto) 0.3 Absolute Neuts (auto) 4.1 Absolute Lymphs (auto) 1.80 Total Counted Not Reportable Sodium 141 Potassium 3.1 L Chloride 107 Carbon Dioxide 26.0 Anion Gap 8 BUN 12 Creatinine 0.65 Estim Creat Clear Calc 73.28 Est GFR (MDRD) Af Amer 118 Est GFR (MDRD) Non-Af 98 BUN/Creatinine Ratio 18.4 Glucose 118 H Hemoglobin A1c Calcium 8.7 Magnesium 1.7 Triglycerides Cholesterol LDL Cholesterol VLDL Cholesterol HDL Cholesterol TSH 03/24/19 03/24/19 03/24/19 04:45 04:45 04:45 WBC RBC Hgb Hct MCV MCH MCHC RDW RDW Differential Plt Count MPV Immature Gran % (Auto) Neut % (Auto) Lymph % (Auto) [place] % (Auto) Eos % (Auto) Baso % (Auto) Absolute Neuts (auto) Absolute Lymphs (auto) Total Counted Sodium 140 Potassium 3.8 Chloride 106 Carbon Dioxide 26.0 Anion Gap 8 BUN 8 Creatinine 0.50 L Estim Creat Clear Calc 95.27 Est GFR (MDRD) Af Amer 160 Est GFR (MDRD) Non-Af 132 BUN/Creatinine Ratio 16.0 Glucose 133 H Hemoglobin A1c 5.3 Calcium 8.8 Magnesium Triglycerides 35 Cholesterol 196 LDL Cholesterol 108 VLDL Cholesterol 7 HDL Cholesterol 81 TSH 0.04 L Medical Necessity - Tobacco Use Smoking Status: Former smoker Assessment/Plan All Active Problems (Last Reviewed 03/23/19 @ 21:15 by Logan Roy MD) Benign paroxysmal positional vertigo (Acute) Vertigo (Acute) 1. Acute CVA - right cerebellar per MRI, with right vertebral occlusion on MRA head. Neuro consulted. Echo ordered. start asa/statin. continue PTOTST. PRN meclizine and antiemetics. 2. Anx/depression - continue home meds. 3. Hypothyroidism - tsh low, check t4. DVT ppx: lovenox DC planning: PTOTST. This patient was seen by George Monreal PA-C under the supervision of Dr. Baird. <Beatrice Baird E - Last Filed: 03/24/19 15:02> - Physical Exam Vital Signs Temp Pulse Resp BP Pulse Ox 98.2 F 79 16 145/68 H 96 03/24/19 13:10 03/24/19 13:10 03/24/19 13:10 03/24/19 13:10 03/24/19 13:10 Oxygen Delivery Method Room Air Weight: 140 lb 3.424 oz Body Mass Index (BMI) 24.8 Intake and Output for Last 24 Hours 03/22/19 03/23/19 03/24/19 23:59 23:59 23:59 Intake Total 1073 / 1073 Output Total 100 / 100 Balance 973 / 973 Laboratory Tests Past 24 Hrs 03/23/19 03/23/19 03/23/19 16:50 16:50 16:50 WBC 6.5 RBC 4.55 Hgb 13.5 Hct 39.2 MCV 86.2 MCH 29.7 MCHC 34.4 RDW 12.4 RDW Differential 39.0 Plt Count 187 MPV 9.8 Immature Gran % (Auto) 0.200 Neut % (Auto) 62.7 Lymph % (Auto) 27.8 [place] % (Auto) 7.6 Eos % (Auto) 1.4 Baso % (Auto) 0.3 Absolute Neuts (auto) 4.1 Absolute Lymphs (auto) 1.80 Total Counted Not Reportable Sodium 141 Potassium 3.1 L Chloride 107 Carbon Dioxide 26.0 Anion Gap 8 BUN 12 Creatinine 0.65 Estim Creat Clear Calc 73.28 Est GFR (MDRD) Af Amer 118 Est GFR (MDRD) Non-Af 98 BUN/Creatinine Ratio 18.4 Glucose 118 H Hemoglobin A1c Calcium 8.7 Magnesium 1.7 Triglycerides Cholesterol LDL Cholesterol VLDL Cholesterol HDL Cholesterol TSH 03/24/19 03/24/19 03/24/19 04:45 04:45 04:45 WBC RBC Hgb Hct MCV MCH MCHC RDW RDW Differential Plt Count MPV Immature Gran % (Auto) Neut % (Auto) Lymph % (Auto) [place] % (Auto) Eos % (Auto) Baso % (Auto) Absolute Neuts (auto) Absolute Lymphs (auto) Total Counted Sodium 140 Potassium 3.8 Chloride 106 Carbon Dioxide 26.0 Anion Gap 8 BUN 8 Creatinine 0.50 L Estim Creat Clear Calc 95.27 Est GFR (MDRD) Af Amer 160 Est GFR (MDRD) Non-Af 132 BUN/Creatinine Ratio 16.0 Glucose 133 H Hemoglobin A1c 5.3 Calcium 8.8 Magnesium Triglycerides 35 Cholesterol 196 LDL Cholesterol 108 VLDL Cholesterol 7 HDL Cholesterol 81 TSH 0.04 L Assessment/Plan Hospitalist note: I am seeing this patient in conjunction with George Monreal. I independently seen and examined the patient. Progress note above reviewed, laboratory data and imaging studies reviewed and I concur with the above treatment plan. Patient presented to the emergency room because of sudden onset of dizziness, described as spinning sensation with headache and associated with nausea and vomiting. Today, patient continued to complain of persistent vertigo, spinning sensation with nausea and vomiting as well as mild headache. She denied focal arm or leg weakness. She denied numbness or tingling. MRI brain revealed right cerebellar stroke. MRA of the neck revealed occlusion of the right vertebral artery. Her vital signs are stable, blood pressure stable. Routine blood work was unremarkable. She is on aspirin and statins. - Physical Exam General: Alert, Oriented x3, Cooperative, No apparent distress. HEENT: Atraumatic, PERRLA, EOMI. Neck: Supple, No JVD, Negative Carotid Bruits, Trachea Midline, Thyroid Normal. Lungs: Clear to auscultation, Normal air movement, No rhonchi, No wheeze, No rales. Cardiovascular: Regular rate, Regular Rhythm, Normal S1, Normal S2, PMI Normal. Abdomen: Bowel Sounds Present, Soft, Non Tender, Non-Distended, No Hepato- splenomegaly. Extremities: No clubbing, No cyanosis, No edema Skin: No rashes, No breakdown Neurological: Cranial nerves are intact, normal power and tone of all limbs. No nystagmus. Vital Signs are stable. Assessment and plan: #1 acute right cerebellar stroke: MRI reviewed as well as MRA of the head and neck. Patient is on aspirin and statins. 2D echocardiogram ordered. Blood pressure stable. After discussion with neurology, patient need to be transferred to tertiary care center for further evaluation and treatment regarding the occlusion of the right vertebral artery. #2 occlusion of the right vertebral artery: Plan for transfer to tertiary care center. #3 other chronic medical problems: Stable, continue current medications as above. This note was generated with [employer] software. It may contain incorrect words, spelling, and punctuation that were not noted in checking the note before signing.
[2019-03-24] MEDS: proCHLORPERazine 10 MG/2 ML Vial 5 MG IV (15:04)
[2019-03-24] MEDS: Magnesium Oxide 400 MG Tablet 800 MG PO (15:06)
[2019-03-24 15:45] LABS: T4 Free Direct 0.95 ng/dL (0.76-1.46)
--- NOTE | 2019-03-24 15:46 | PCM.DC.SUM ---
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 Minimal mass effect on the brainstem. MRI/MRA Head ONLY without Contrast IMPRESSION: Occlusion of the right vertebral artery. Further evaluation with CTA can be obtained. MRI/MRA Neck WITH and W/O Contrast IMPRESSION: Occlusion of the right vertebral artery. Further evaluation with CTA can be obtained. CT/Brain/Head without Contrast IMPRESSION: Subtle chronic changes of microvascular ischemia versus other demyelinating process. One might consider correlation with MRI. Consults: Wong Operations: None Procedures: None Summary of Care Provided: Hospital Course: The patient is a 64 year old F with pmhx of hypothyroidism and anxiety/depression who presented to the emergency room with complaints of vertigo. This started suddenly a few hours prior to presentation. She noted that it was worse with moving her head and better when her head was still. She had a mild headache as well. She had severe nausea associated with the vertigo. She was given meclizine and Valium with mild improvement. She was admitted to the PCU for stroke work-up. MRI of the brain was obtained which did reveal acute right cerebellar infarct, follow-up MRA of the head and neck revealed right vertebral artery occlusion. The patient's symptoms persisted with severe nausea and vertigo. She also reported mild generalized weakness. She had no focal weakness. She did have a new mild slurring of her speech. She had no facial droop. Neurology was called to given the occlusion of her vertebral artery. They felt that the patient was not safe to be kept here and recommended transfer to tertiary center with neurosurgery evaluation. Per the patient's request and insurance we contacted [facility] who did accept the patient under the care of Dr. Dasilva. She was transferred in stable condition. Also of note as part of her stroke work-up we checked the following. Telemetry overnight did not reveal acute events. A magnesium which was 1.7, supplemented with oral. Checked hemoglobin A1c which was 5.3. Check her fasting lipid profile which showed triglycerides 35, total cholesterol 196, LDL 108, HDL 81, VLDL 7. We also checked her TSH which was low at 0.04. Follow-up T4 was ordered and is pending at this time. Potassium was initially low at 3.1, was supplemented and improved to 3.8. An echo was not able to be obtained at this time as services are unavailable on Monday. She was started on aspirin and statin while here, she was previously not on either. This patient was seen by George Monreal PA-C under the supervision of Doctor Oli. [] - Physical Exam General: Alert, Oriented x3, Cooperative HEENT: Atraumatic, PERRLA, EOMI, Normocephalic Neck: Supple, No JVD, Negative Carotid Bruits Lungs: Clear to auscultation, Normal air movement Cardiovascular: Regular rate, No murmurs Abdomen: Bowel Sounds Present, Soft, Non Tender Extremities: No edema, Capillary Refill Less than 3 Seconds Skin: No rashes, No breakdown Musculoskeletal: No Tenderness to Palpation of Joints or Extremities Neurological: Cranial nerves II-XII grossly intact, - - Neuro exam is grossly intact Psych/Mental Status: Normal Affect, Appropriate Vital Signs Temp Pulse Resp BP Pulse Ox 98.2 F 84 16 145/68 H 96 03/24/19 13:10 03/24/19 15:01 03/24/19 13:10 03/24/19 13:10 03/24/19 13:10 Oxygen Delivery Method Room Air Weight: 140 lb 3.424 oz Body Mass Index (BMI) 24.8 Intake and Output for Last 24 Hours 03/22/19 03/23/19 03/24/19 23:59 23:59 23:59 Intake Total 1073 / 1073 Output Total 100 / 100 Balance 973 / 973 Laboratory Tests Past 24 Hrs 03/23/19 03/23/19 03/23/19 16:50 16:50 16:50 WBC 6.5 RBC 4.55 Hgb 13.5 Hct 39.2 MCV 86.2 MCH 29.7 MCHC 34.4 RDW 12.4 RDW Differential 39.0 Plt Count 187 MPV 9.8 Immature Gran % (Auto) 0.200 Neut % (Auto) 62.7 Lymph % (Auto) 27.8 [place] % (Auto) 7.6 Eos % (Auto) 1.4 Baso % (Auto) 0.3 Absolute Neuts (auto) 4.1 Absolute Lymphs (auto) 1.80 Total Counted Not Reportable Sodium 141 Potassium 3.1 L Chloride 107 Carbon Dioxide 26.0 Anion Gap 8 BUN 12 Creatinine 0.65 Estim Creat Clear Calc 73.28 Est GFR (MDRD) Af Amer 118 Est GFR (MDRD) Non-Af 98 BUN/Creatinine Ratio 18.4 Glucose 118 H Hemoglobin A1c Calcium 8.7 Magnesium 1.7 Triglycerides Cholesterol LDL Cholesterol VLDL Cholesterol HDL Cholesterol TSH Free T4 03/24/19 03/24/19 03/24/19 04:45 04:45 04:45 WBC RBC Hgb Hct MCV MCH MCHC RDW RDW Differential Plt Count MPV Immature Gran % (Auto) Neut % (Auto) Lymph % (Auto) [place] % (Auto) Eos % (Auto) Baso % (Auto) Absolute Neuts (auto) Absolute Lymphs (auto) Total Counted Sodium 140 Potassium 3.8 Chloride 106 Carbon Dioxide 26.0 Anion Gap 8 BUN 8 Creatinine 0.50 L Estim Creat Clear Calc 95.27 Est GFR (MDRD) Af Amer 160 Est GFR (MDRD) Non-Af 132 BUN/Creatinine Ratio 16.0 Glucose 133 H Hemoglobin A1c 5.3 Calcium 8.8 Magnesium Triglycerides 35 Cholesterol 196 LDL Cholesterol 108 VLDL Cholesterol 7 HDL Cholesterol 81 TSH 0.04 L Free T4 03/24/19 04:45 WBC RBC Hgb Hct MCV MCH MCHC RDW RDW Differential Plt Count MPV Immature Gran % (Auto) Neut % (Auto) Lymph % (Auto) [place] % (Auto) Eos % (Auto) Baso % (Auto) Absolute Neuts (auto) Absolute Lymphs (auto) Total Counted Sodium Potassium Chloride Carbon Dioxide Anion Gap BUN Creatinine Estim Creat Clear Calc Est GFR (MDRD) Af Amer Est GFR (MDRD) Non-Af BUN/Creatinine Ratio Glucose Hemoglobin A1c Calcium Magnesium Triglycerides Cholesterol LDL Cholesterol VLDL Cholesterol HDL Cholesterol TSH Free T4 0.95 Discharge Diet: - - As directed per receiving facility Discharge Activity: - - As directed per receiving facility Home Medications: Medications to take at Discharge fluoxetine 40 mg capsule 40 mg PO DAILY 01/24/19 Diazepam [Valium] 2 mg PO TID 3 Days #10 tablet 03/23/19 Ondansetron [Zofran Odt] 4 mg PO Q8H PRN PRN #5 tablet 03/23/19 Thyroid [[place] Thyroid] 90 mg PO DAILY 03/23/19 Following Prescrptions Were Given to Patient: Diazepam [Valium] 2 mg PO TID 3 Days #10 tablet Ondansetron [Zofran Odt] 4 mg PO Q8H PRN PRN #5 tablet PRN Reason: Nausea Primary Care Physician: Hakeem Broderick DO [Primary Care Provider] - As Needed Please follow up with your Primary Care Physician in: As directed Disposition: Acute care Hospital Minutes spent on discharge:: 40 Patient Condition:: Stable Medical Necessity - Tobacco Use Smoking Status: Former smoker Meaningful Use Info Meaningful Use Diagnoses (Choose all that apply): Ischemic CVA - CVA Therapy Assessed for PT,OT and/or ST?: Yes - Ischemic Stroke Antithrombotic order at d/c?: Yes Dx of Atrial fib/flutter?: No Anticoagulant at discharge?: No Reason anticoagulant not ordered: Procedure not Indicated Statins at discharge?: Yes Primary Dx Acute Ischemic CVA?: Yes IV tPA ordered during stay?: No Reason IV t-PA not ordered: Procedure not Indicated <Beatrice Baird E - Last Filed: 03/25/19 00:00> Hospital Course and Treatment Imaging Results: Clinical Impression(s) from Imaging Studies Brain CT 03/23/19 16:33 IMPRESSION: Subtle chronic changes of microvascular ischemia versus other demyelinating process. One might consider correlation with MRI. Electronically Signed: Parth Escobedo MD at 17:54 EDT , Service support , Brain MRI 03/24/19 10:45 IMPRESSION: Acute right cerebellar infarct. Minimal mass effect on the brainstem. Electronically Signed: Tyler Castro MD at 12:34 EDT Tel , Service support , ADDENDUM: 03/24/19 1406 IMPRESSION: Acute right cerebellar infarct. Minimal mass effect on the brainstem. N.B. : The above information has been verbally conveyed by Tyler Castro MD to Sally Cha;[phone], on 03/24/2019 13:59:33 (ET). Electronically Signed: Tyler Castro MD at 12:34 EDT Tel , Service support , Head MRA 03/24/19 10:45 IMPRESSION: Occlusion of the right vertebral artery. Further evaluation with CTA can be obtained. Electronically Signed: Tyler Castro MD at 12:39 EDT Tel , Service support , Neck MRA 03/24/19 10:45 IMPRESSION: Occlusion of the right vertebral artery. Further evaluation with CTA can be obtained. Electronically Signed: Tyler Castro MD at 12:40 EDT Tel , Service support , Summary of Care Provided: Hospitalist note: Discharge summary above reviewed and I agree with above plan. This pt presented to ED with dizziness, nausea with vomiting with mild headache. She had no focal deficit on physicsl exam. Her blood pressure was stable and other vitals were stable as well. Initial CT brain showed no acute findings. Her routine blood work was unremarkable. EKG revealed normal sinus rhythm without evidence of acute ischemic changes or cardiac arrhythmias. MRI brain performed and revealed acute right cerebellar infarct measuring 4x1.7 cm. MRA of the neck revealed occlusion of the right vertebral artery. Pt was treated with aspirin and statins, given IV decadron because she had sever headache and MRI brain showed minimal cerebellar edmea. Case was discussed with Neurology over the phone who recommended transfer to tertiary care center for further management. Call was made to [facility] by George Monreal and pt was accepted in transfer. - Physical Exam General: Alert, Oriented x3, Cooperative, No apparent distress. HEENT: Atraumatic, PERRLA, EOMI. Neck: Supple, No JVD, Negative Carotid Bruits, Trachea Midline, Thyroid Normal. Lungs: Clear to auscultation, Normal air movement, No rhonchi, No wheeze, No rales. Cardiovascular: Regular rate, Regular Rhythm, Normal S1, Normal S2, PMI Normal. Abdomen: Bowel Sounds Present, Soft, Non Tender, Non-Distended, No Hepato-splenomegaly. Extremities: No clubbing, No cyanosis, No edema Skin: No rashes, No breakdown Neurological: Cranial nerves are intact, normal power and tone of all limbs. No nystagmus. Vital Signs are stable. This note was generated with [employer] dictation software. It may contain incorrect words, spelling, and punctuation that were not noted in checking the note before signing. - Physical Exam Vital Signs Temp Pulse Resp BP Pulse Ox 98.4 F 68 16 135/63 H 97 03/24/19 17:10 03/24/19 17:10 03/24/19 17:10 03/24/19 17:10 03/24/19 17:10 Oxygen Delivery Method Room Air Weight: 140 lb 3.424 oz Body Mass Index (BMI) 24.8 Intake and Output for Last 24 Hours 03/22/19 03/23/19 03/24/19 23:59 23:59 23:59 Intake Total 1133 / 1133 Output Total 100 / 100 Balance 1033 / 1033 Laboratory Tests Past 24 Hrs 03/24/19 03/24/19 03/24/19 04:45 04:45 04:45 Sodium 140 Potassium 3.8 Chloride 106 Carbon Dioxide 26.0 Anion Gap 8 BUN 8 Creatinine 0.50 L Estim Creat Clear Calc 95.27 Est GFR (MDRD) Af Amer 160 Est GFR (MDRD) Non-Af 132 BUN/Creatinine Ratio 16.0 Glucose 133 H Hemoglobin A1c 5.3 Calcium 8.8 Triglycerides 35 Cholesterol 196 LDL Cholesterol 108 VLDL Cholesterol 7 HDL Cholesterol 81 TSH 0.04 L Free T4 03/24/19 04:45 Sodium Potassium Chloride Carbon Dioxide Anion Gap BUN Creatinine Estim Creat Clear Calc Est GFR (MDRD) Af Amer Est GFR (MDRD) Non-Af BUN/Creatinine Ratio Glucose Hemoglobin A1c Calcium Triglycerides Cholesterol LDL Cholesterol VLDL Cholesterol HDL Cholesterol TSH Free T4 0.95 Disposition: Acute care Hospital Minutes spent on discharge:: 35 Patient Condition:: Stable Meaningful Use Info Meaningful Use Diagnoses (Choose all that apply): Ischemic CVA - CVA Therapy Assessed for PT,OT and/or ST?: Yes - Ischemic Stroke Antithrombotic order at d/c?: Yes Dx of Atrial fib/flutter?: No Anticoagulant at discharge?: No Reason anticoagulant not ordered: Procedure not Indicated Statins at discharge?: Yes Primary Dx Acute Ischemic CVA?: Yes IV tPA ordered during stay?: No Reason IV t-PA not ordered: Procedure not Indicated Code Visit Inpatient E&M: 28778 Disch Hosp
--- NOTE | 2019-03-24 15:54 | DS.PCM_ITS ---
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 Minimal mass effect on the brainstem. MRI/MRA Head ONLY without Contrast IMPRESSION: Occlusion of the right vertebral artery. Further evaluation with CTA can be obtained. MRI/MRA Neck WITH and W/O Contrast IMPRESSION: Occlusion of the right vertebral artery. Further evaluation with CTA can be obtained. CT/Brain/Head without Contrast IMPRESSION: Subtle chronic changes of microvascular ischemia versus other demyelinating process. One might consider correlation with MRI. Consults: Wong Operations: None Procedures: None Summary of Care Provided: Hospital Course: The patient is a 64 year old F with pmhx of hypothyroidism and anxiety/depression who presented to the emergency room with complaints of vertigo. This started suddenly a few hours prior to presentation. She noted that it was worse with moving her head and better when her head was still. She had a mild headache as well. She had severe nausea associated with the vertigo. She was given meclizine and Valium with mild improvement. She was admitted to the PCU for stroke work-up. MRI of the brain was obtained which did reveal acute right cerebellar infarct, follow-up MRA of the head and neck revealed right vertebral artery occlusion. The patient's symptoms persisted with severe nausea and vertigo. She also reported mild generalized weakness. She had no focal weakness. She did have a new mild slurring of her speech. She had no facial droop. Neurology was called to given the occlusion of her vertebral artery. They felt that the patient was not safe to be kept here and recommended transfer to tertiary center with neurosurgery evaluation. Per the patient's request and insurance we contacted [facility] who did accept the patient under the care of Dr. Dasilva. She was transferred in stable condition. Also of note as part of her stroke work-up we checked the following. Telemetry overnight did not reveal acute events. A magnesium which was 1.7, supplemented with oral. Checked hemoglobin A1c which was 5.3. Check her fasting lipid profile which showed triglycerides 35, total cholesterol 196, LDL 108, HDL 81, VLDL 7. We also checked her TSH which was low at 0.04. Follow-up T4 was ordered and is pending at this time. Potassium was initially low at 3.1, was supplemented and improved to 3.8. An echo was not able to be obtained at this time as services are unavailable on Monday. She was started on aspirin and statin while here, she was previously not on either. This patient was seen by George Monreal PA-C under the supervision of Doctor Oli. [] - Physical Exam General: Alert, Oriented x3, Cooperative HEENT: Atraumatic, PERRLA, EOMI, Normocephalic Neck: Supple, No JVD, Negative Carotid Bruits Lungs: Clear to auscultation, Normal air movement Cardiovascular: Regular rate, No murmurs Abdomen: Bowel Sounds Present, Soft, Non Tender Extremities: No edema, Capillary Refill Less than 3 Seconds Skin: No rashes, No breakdown Musculoskeletal: No Tenderness to Palpation of Joints or Extremities Neurological: Cranial nerves II-XII grossly intact, - - Neuro exam is grossly intact Psych/Mental Status: Normal Affect, Appropriate Vital Signs Temp Pulse Resp BP Pulse Ox 98.2 F 84 16 145/68 H 96 03/24/19 13:10 03/24/19 15:01 03/24/19 13:10 03/24/19 13:10 03/24/19 13:10 Oxygen Delivery Method Room Air Weight: 140 lb 3.424 oz Body Mass Index (BMI) 24.8 Intake and Output for Last 24 Hours 03/22/19 03/23/19 03/24/19 23:59 23:59 23:59 Intake Total 1073 / 1073 Output Total 100 / 100 Balance 973 / 973 Laboratory Tests Past 24 Hrs 03/23/19 03/23/19 03/23/19 16:50 16:50 16:50 WBC 6.5 RBC 4.55 Hgb 13.5 Hct 39.2 MCV 86.2 MCH 29.7 MCHC 34.4 RDW 12.4 RDW Differential 39.0 Plt Count 187 MPV 9.8 Immature Gran % (Auto) 0.200 Neut % (Auto) 62.7 Lymph % (Auto) 27.8 [place] % (Auto) 7.6 Eos % (Auto) 1.4 Baso % (Auto) 0.3 Absolute Neuts (auto) 4.1 Absolute Lymphs (auto) 1.80 Total Counted Not Reportable Sodium 141 Potassium 3.1 L Chloride 107 Carbon Dioxide 26.0 Anion Gap 8 BUN 12 Creatinine 0.65 Estim Creat Clear Calc 73.28 Est GFR (MDRD) Af Amer 118 Est GFR (MDRD) Non-Af 98 BUN/Creatinine Ratio 18.4 Glucose 118 H Hemoglobin A1c Calcium 8.7 Magnesium 1.7 Triglycerides Cholesterol LDL Cholesterol VLDL Cholesterol HDL Cholesterol TSH Free T4 03/24/19 03/24/19 03/24/19 04:45 04:45 04:45 WBC RBC Hgb Hct MCV MCH MCHC RDW RDW Differential Plt Count MPV Immature Gran % (Auto) Neut % (Auto) Lymph % (Auto) [place] % (Auto) Eos % (Auto) Baso % (Auto) Absolute Neuts (auto) Absolute Lymphs (auto) Total Counted Sodium 140 Potassium 3.8 Chloride 106 Carbon Dioxide 26.0 Anion Gap 8 BUN 8 Creatinine 0.50 L Estim Creat Clear Calc 95.27 Est GFR (MDRD) Af Amer 160 Est GFR (MDRD) Non-Af 132 BUN/Creatinine Ratio 16.0 Glucose 133 H Hemoglobin A1c 5.3 Calcium 8.8 Magnesium Triglycerides 35 Cholesterol 196 LDL Cholesterol 108 VLDL Cholesterol 7 HDL Cholesterol 81 TSH 0.04 L Free T4 03/24/19 04:45 WBC RBC Hgb Hct MCV MCH MCHC RDW RDW Differential Plt Count MPV Immature Gran % (Auto) Neut % (Auto) Lymph % (Auto) [place] % (Auto) Eos % (Auto) Baso % (Auto) Absolute Neuts (auto) Absolute Lymphs (auto) Total Counted Sodium Potassium Chloride Carbon Dioxide Anion Gap BUN Creatinine Estim Creat Clear Calc Est GFR (MDRD) Af Amer Est GFR (MDRD) Non-Af BUN/Creatinine Ratio Glucose Hemoglobin A1c Calcium Magnesium Triglycerides Cholesterol LDL Cholesterol VLDL Cholesterol HDL Cholesterol TSH Free T4 0.95 Discharge Diet: - - As directed per receiving facility Discharge Activity: - - As directed per receiving facility Home Medications: Medications to take at Discharge fluoxetine 40 mg capsule 40 mg PO DAILY 01/24/19 Diazepam [Valium] 2 mg PO TID 3 Days #10 tablet 03/23/19 Ondansetron [Zofran Odt] 4 mg PO Q8H PRN PRN #5 tablet 03/23/19 Thyroid [Thornton Thyroid] 90 mg PO DAILY 03/23/19 Following Prescrptions Were Given to Patient: Diazepam [Valium] 2 mg PO TID 3 Days #10 tablet Ondansetron [Zofran Odt] 4 mg PO Q8H PRN PRN #5 tablet PRN Reason: Nausea Primary Care Physician: Hakeem Broderick DO [Primary Care Provider] - As Needed Please follow up with your Primary Care Physician in: As directed Disposition: Acute care Hospital Minutes spent on discharge:: 40 Patient Condition:: Stable Medical Necessity - Tobacco Use Smoking Status: Former smoker Meaningful Use Info Meaningful Use Diagnoses (Choose all that apply): Ischemic CVA - CVA Therapy Assessed for PT,OT and/or ST?: Yes - Ischemic Stroke Antithrombotic order at d/c?: Yes Dx of Atrial fib/flutter?: No Anticoagulant at discharge?: No Reason anticoagulant not ordered: Procedure not Indicated Statins at discharge?: Yes Primary Dx Acute Ischemic CVA?: Yes IV tPA ordered during stay?: No Reason IV t-PA not ordered: Procedure not Indicated <Beatrice Baird E - Last Filed: 03/25/19 00:00> Hospital Course and Treatment Imaging Results: Clinical Impression(s) from Imaging Studies Brain CT 03/23/19 16:33 IMPRESSION: Subtle chronic changes of microvascular ischemia versus other demyelinating process. One might consider correlation with MRI. Electronically Signed: Parth Escobedo MD at 17:54 EDT , Service support , Brain MRI 03/24/19 10:45 IMPRESSION: Acute right cerebellar infarct. Minimal mass effect on the brainstem. Electronically Signed: Tyler Castro MD at 12:34 EDT Tel , Service support , ADDENDUM: 03/24/19 1406 IMPRESSION: Acute right cerebellar infarct. Minimal mass effect on the brainstem. N.B. : The above information has been verbally conveyed by Tyler Castro MD to Sally Cha;[phone], on 03/24/2019 13:59:33 (ET). Electronically Signed: Tyler Castro MD at 12:34 EDT Tel , Service support , Head MRA 03/24/19 10:45 IMPRESSION: Occlusion of the right vertebral artery. Further evaluation with CTA can be obtained. Electronically Signed: Tyler Castro MD at 12:39 EDT Tel , Service support , Neck MRA 03/24/19 10:45 IMPRESSION: Occlusion of the right vertebral artery. Further evaluation with CTA can be obtained. Electronically Signed: Tyler Castro MD at 12:40 EDT Tel , Service support , Summary of Care Provided: Hospitalist note: Discharge summary above reviewed and I agree with above plan. This pt presented to ED with dizziness, nausea with vomiting with mild headache. She had no focal deficit on physicsl exam. Her blood pressure was stable and other vitals were stable as well. Initial CT brain showed no acute findings. Her routine blood work was unremarkable. EKG revealed normal sinus rhythm without evidence of acute ischemic changes or cardiac arrhythmias. MRI brain performed and revealed acute right cerebellar infarct measuring 4x1.7 cm. MRA of the neck revealed occlusion of the right vertebral artery. Pt was treated with aspirin and statins, given IV decadron because she had sever headache and MRI brain showed minimal cerebellar edmea. Case was discussed with Neurology over the phone who recommended transfer to tertiary care center for further management. Call was made to [facility] by George Monreal and pt was accepted in transfer. - Physical Exam General: Alert, Oriented x3, Cooperative, No apparent distress. HEENT: Atraumatic, PERRLA, EOMI. Neck: Supple, No JVD, Negative Carotid Bruits, Trachea Midline, Thyroid Normal. Lungs: Clear to auscultation, Normal air movement, No rhonchi, No wheeze, No rales. Cardiovascular: Regular rate, Regular Rhythm, Normal S1, Normal S2, PMI Normal. Abdomen: Bowel Sounds Present, Soft, Non Tender, Non-Distended, No Hepato- splenomegaly. Extremities: No clubbing, No cyanosis, No edema Skin: No rashes, No breakdown Neurological: Cranial nerves are intact, normal power and tone of all limbs. No nystagmus. Vital Signs are stable. This note was generated with [employer] dictation software. It may contain incorrect words, spelling, and punctuation that were not noted in checking the note before signing. - Physical Exam Vital Signs Temp Pulse Resp BP Pulse Ox 98.4 F 68 16 135/63 H 97 03/24/19 17:10 03/24/19 17:10 03/24/19 17:10 03/24/19 17:10 03/24/19 17:10 Oxygen Delivery Method Room Air Weight: 140 lb 3.424 oz Body Mass Index (BMI) 24.8 Intake and Output for Last 24 Hours 03/22/19 03/23/19 03/24/19 23:59 23:59 23:59 Intake Total 1133 / 1133 Output Total 100 / 100 Balance 1033 / 1033 Laboratory Tests Past 24 Hrs 03/24/19 03/24/19 03/24/19 04:45 04:45 04:45 Sodium 140 Potassium 3.8 Chloride 106 Carbon Dioxide 26.0 Anion Gap 8 BUN 8 Creatinine 0.50 L Estim Creat Clear Calc 95.27 Est GFR (MDRD) Af Amer 160 Est GFR (MDRD) Non-Af 132 BUN/Creatinine Ratio 16.0 Glucose 133 H Hemoglobin A1c 5.3 Calcium 8.8 Triglycerides 35 Cholesterol 196 LDL Cholesterol 108 VLDL Cholesterol 7 HDL Cholesterol 81 TSH 0.04 L Free T4 03/24/19 04:45 Sodium Potassium Chloride Carbon Dioxide Anion Gap BUN Creatinine Estim Creat Clear Calc Est GFR (MDRD) Af Amer Est GFR (MDRD) Non-Af BUN/Creatinine Ratio Glucose Hemoglobin A1c Calcium Triglycerides Cholesterol LDL Cholesterol VLDL Cholesterol HDL Cholesterol TSH Free T4 0.95 Disposition: Acute care Hospital Minutes spent on discharge:: 35 Patient Condition:: Stable Meaningful Use Info Meaningful Use Diagnoses (Choose all that apply): Ischemic CVA - CVA Therapy Assessed for PT,OT and/or ST?: Yes - Ischemic Stroke Antithrombotic order at d/c?: Yes Dx of Atrial fib/flutter?: No Anticoagulant at discharge?: No Reason anticoagulant not ordered: Procedure not Indicated Statins at discharge?: Yes Primary Dx Acute Ischemic CVA?: Yes IV tPA ordered during stay?: No Reason IV t-PA not ordered: Procedure not Indicated Code Visit Inpatient E&M: 27896 Disch Hosp
--- NOTE | 2019-03-24 17:28 | NURSING ---
Called report to Cynthia TIERNEY at [facility]
[2019-03-24] MEDS: dexAMETHasone 4 MG/ML Vial IV (17:54)
[2019-03-24] MEDS: HYDROmorphone 0.5 MG/0.5 ML SYRINGE IV (17:54)
== END 2019-03-24 18:20 | disposition short-term general hospital (02) | DRG 66 ==
LOC: ED 19:41 → PCU 03-24 00:16
PROVIDERS: Physician Assistant; Admitting Provider Hospitalist; Emergency Provider Emergency Medicine; Family Provider Student in an Organized Health Care Education/Training Program; PCP Student in an Organized Health Care Education/Training Program; Referring Provider Hospitalist; Visit Provider Hospitalist
DX: I63.211 Cerebral infarction due to unspecified occlusion or stenosis of right vertebral artery (principal); E03.9 Hypothyroidism, unspecified; E87.6 Hypokalemia; R47.81 Slurred speech; I45.81 Long QT syndrome; R42 Dizziness and giddiness; F41.8 Other specified anxiety disorders; Z87.891 Personal history of nicotine dependence
CPT/HCPCS: 36415; 70450; 70544; 70549; 70551; 80048; 80061; 83036; 83735; 84439; 84443; 85025; 93005; 97161; 97165; 99285; A9575; J7030; J7120; A4216; J2405

== ENCOUNTER 2019-03-27 20:35 | Inpatient (IN) | payer OTHER, SELFPAY ==
[2019-03-24 12:11] VITALS: BMI 24.8
--- NOTE | 2019-03-27 21:05 | NURSING ---
Hospitalist paged at [phone]. hospital[address] nicolas returned call at [phone] and this nurse stated there was a new admission onto rehab unit. hospitalist stated You can call tomorrow, the ER is busy. this nurse will pass along in am EOS report.
[2019-03-27 21:16] VITALS: BP 128/78; PULSE 62; RESP 18; TEMP 36.7; O2SAT 18; BMI 25.8
[2019-03-27 22:00] VITALS: BP 128/86; PULSE 62; PULSE 78; RESP 18; TEMP 36.7; O2SAT 94; O2SAT 95
[2019-03-27 22:15] VITALS: BMI 25.8
[2019-03-27] MEDS: Senna/Docusate Sodium 1 Tablet 2 TABLET PO (22:32)
[2019-03-27] MEDS: Heparin Injection (Vial) 5,000 UNIT/ML VIAL 5000 UNIT SC (22:33)
[2019-03-27] MEDS: Atorvastatin Calcium 80 MG Tablet PO (22:33)
--- NOTE | 2019-03-27 22:41 | NURSING ---
Dr Conte, hospitalist, to see pt. Pt resting in bed with assessment complete.
--- NOTE | 2019-03-27 22:46 | PCM.PN.HOSP ---
Subjective: Reason for consult: Medical management for rehab patient. New admission This is a 64-year-old female was recently diagnosed with acute vertigo secondary to right cerebellar infarct on MRI with minimal mass-effect on the brainstem secondary to occlusion of right vertebral artery, right from origin is being admitted from [facility] for acute rehab. Prior to that patient was in [facility] on 03/23 and transferred on 03/24 to ICU for acute right cerebellar infarct of size 4 x 1.7 cm of inferior right cerebellar hemisphere. Patient dizziness and vertigo has much improved. She has generalized weakness but no focal weakness. She denies history of NM or A. fib/arrhythmia. Past medical history: Hypothyroidism, anxiety and depression: Vitals/I&O's: Vital Signs Temp Pulse Resp BP Pulse Ox 98.0 F 62 18 128/78 H 18 03/27/19 21:16 03/27/19 21:16 03/27/19 21:16 03/27/19 21:16 03/27/19 21:16 Oxygen Delivery Method Room Air Weight: 140 lb 6.951 oz Body Mass Index (BMI) 25.8 General: Alert, Oriented x3, Cooperative HEENT: Atraumatic, PERRLA, EOMI, Normocephalic Neck: Supple, No JVD, Negative Carotid Bruits Lungs: Clear to auscultation, Normal air movement, No rhonchi, No wheeze, No rales Cardiovascular: Regular rate, No murmurs Abdomen: Bowel Sounds Present, Soft, Non Tender, Non-Distended Extremities: No edema, Capillary Refill Less than 3 Seconds Skin: No rashes, No breakdown Musculoskeletal: No Tenderness to Palpation of Joints or Extremities, Arthritic Changes Neurological: Cranial nerves II-XII grossly intact, Deep Tendon Reflexes 2+/4 and Symmetrical, Neuro grossly intact, - - Patient states mild gait unsteadiness. Gmxlii-je-huii test and izcz-tj-dpmx test are normal. Initially patient had mild slurred speech/nasal voice but has not resolved. No facial droop. Psych/Mental Status: Normal Affect, Appropriate Current Medications Acetaminophen (Tylenol) 650 mg PO Q8H PRN PRN PRN Reason: Mild Pain (0-3/10)/Headache Aspirin (Aspirin) 325 mg PO DAILY@0800 [facility] Atorvastatin Calcium (Lipitor) 80 mg PO QHS [facility] Last Admin: 03/27/19 22:33 Dose: 80 mg Bisacodyl (Dulcolax) 10 mg RECTAL .PRN X 1 PRN PRN Reason: Constipation Heparin Sodium (Porcine) (Heparin Na) 5,000 unit SC Q8 [facility] Last Admin: 03/27/19 22:33 Dose: 5,000 unit Lisinopril (Zestril) 5 mg PO DAILY [facility] Magnesium Hydroxide (Milk Of Magnesia) 30 ml PO .PRN X 1 PRN PRN Reason: Constipation Senna/Docusate Sodium (Senokot-S, Ingrid-Colace) 2 tablet PO BID [facility] Last Admin: 03/27/19 22:32 Dose: 2 tablet Medical Necessity - Tobacco Use Smoking Status: Former smoker Assessment/Plan All Active Problems (Last Reviewed 03/23/19 @ 21:15 by Logan Roy MD) Benign paroxysmal positional vertigo (Acute) Vertigo (Acute) This is a 64-year-old female was recently diagnosed with acute vertigo secondary to right cerebellar infarct on MRI with minimal mass-effect on the brainstem secondary to occlusion of right vertebral artery, right from origin is being admitted from [facility] for acute rehab. Prior to that patient was in [facility] on 03/23 and transferred on 03/24 to ICU for acute right cerebellar infarct of size 4 x 1.7 cm of inferior right cerebellar hemisphere. Patient dizziness and vertigo has much improved. She has generalized weakness but no focal weakness. She denies history of NM or A. fib/arrhythmia. 1. Acute right cerebellar hemisphere ischemic stroke 4 x 1.7 cm secondary to occlusion of right vertebral artery. Patient is being admitted acute rehab. PT OT and speech evaluation. Blood pressure is normal. Last A1c during previous admission 5.3. Fasting lipid profile triglycerides 35, total cholesterol 196, LDL 108, HDL 81, VLDL 7. She was managed conservatively in [facility] by neurosurgeon. She had minimal mass-effect on the brainstem on MRI 03/24. Continue baby aspirin. Basic labs ordered for tomorrow a.m. 2. Dyslipidemia: Goal LDL should be less than 100 preferably less than 70. On atorvastatin 80 mg daily. 3. Hypertension: Blood pressure is normal. On lisinopril 5 mg daily. 4. Chronic constipation: On a stool softener. DVT prophylaxis: On heparin 500 subcutaneous every 8 hourly. Code Visit Inpatient E&M: 15029 Init Hosp L2
--- NOTE | 2019-03-27 23:01 | PN_ITS ---
Subjective: Reason for consult: Medical management for rehab patient. New admission This is a 64-year-old female was recently diagnosed with acute vertigo secondary to right cerebellar infarct on MRI with minimal mass-effect on the brainstem secondary to occlusion of right vertebral artery, right from origin is being admitted from [facility] for acute rehab. Prior to that patient was in [facility] on 03/23 and transferred on 03/24 to ICU for acute right cerebellar infarct of size 4 x 1.7 cm of inferior right cerebellar hemisphere. Patient dizziness and vertigo has much improved. She has generalized weakness but no focal weakness. She denies history of ID or A. fib/arrhythmia. Past medical history: Hypothyroidism, anxiety and depression: Vitals/I&O's: Vital Signs Temp Pulse Resp BP Pulse Ox 98.0 F 62 18 128/78 H 18 03/27/19 21:16 03/27/19 21:16 03/27/19 21:16 03/27/19 21:16 03/27/19 21:16 Oxygen Delivery Method Room Air Weight: 140 lb 6.951 oz Body Mass Index (BMI) 25.8 General: Alert, Oriented x3, Cooperative HEENT: Atraumatic, PERRLA, EOMI, Normocephalic Neck: Supple, No JVD, Negative Carotid Bruits Lungs: Clear to auscultation, Normal air movement, No rhonchi, No wheeze, No rales Cardiovascular: Regular rate, No murmurs Abdomen: Bowel Sounds Present, Soft, Non Tender, Non-Distended Extremities: No edema, Capillary Refill Less than 3 Seconds Skin: No rashes, No breakdown Musculoskeletal: No Tenderness to Palpation of Joints or Extremities, Arthritic Changes Neurological: Cranial nerves II-XII grossly intact, Deep Tendon Reflexes 2+/4 and Symmetrical, Neuro grossly intact, - - Patient states mild gait unsteadiness. Bipeht-nn-vkon test and opka-ti-euby test are normal. Initially patient had mild slurred speech/nasal voice but has not resolved. No facial droop. Psych/Mental Status: Normal Affect, Appropriate Current Medications Acetaminophen (Tylenol) 650 mg PO Q8H PRN PRN PRN Reason: Mild Pain (0-3/10)/Headache Aspirin (Aspirin) 325 mg PO DAILY@0800 [facility] Atorvastatin Calcium (Lipitor) 80 mg PO QHS [facility] Last Admin: 03/27/19 22:33 Dose: 80 mg Bisacodyl (Dulcolax) 10 mg RECTAL .PRN X 1 PRN PRN Reason: Constipation Heparin Sodium (Porcine) (Heparin Na) 5,000 unit SC Q8 [facility] Last Admin: 03/27/19 22:33 Dose: 5,000 unit Lisinopril (Zestril) 5 mg PO DAILY [facility] Magnesium Hydroxide (Milk Of Magnesia) 30 ml PO .PRN X 1 PRN PRN Reason: Constipation Senna/Docusate Sodium (Senokot-S, Ingrid-Colace) 2 tablet PO BID [facility] Last Admin: 03/27/19 22:32 Dose: 2 tablet Medical Necessity - Tobacco Use Smoking Status: Former smoker Assessment/Plan All Active Problems (Last Reviewed 03/23/19 @ 21:15 by Logan Roy MD) Benign paroxysmal positional vertigo (Acute) Vertigo (Acute) This is a 64-year-old female was recently diagnosed with acute vertigo secondary to right cerebellar infarct on MRI with minimal mass-effect on the brainstem secondary to occlusion of right vertebral artery, right from origin is being admitted from [facility] for acute rehab. Prior to that patient was in [facility] on 03/23 and transferred on 03/24 to ICU for acute right cerebellar infarct of size 4 x 1.7 cm of inferior right cerebellar hemisphere. Patient dizziness and vertigo has much improved. She has generalized weakness but no focal weakness. She denies history of ID or A. fib/arrhythmia. 1. Acute right cerebellar hemisphere ischemic stroke 4 x 1.7 cm secondary to occlusion of right vertebral artery. Patient is being admitted acute rehab. PT OT and speech evaluation. Blood pressure is normal. Last A1c during previous admission 5.3. Fasting lipid profile triglycerides 35, total cholesterol 196, LDL 108, HDL 81, VLDL 7. She was managed conservatively in [facility] by neurosurgeon. She had minimal mass-effect on the brainstem on MRI 03/24. Continue baby aspirin. Basic labs ordered for tomorrow a.m. 2. Dyslipidemia: Goal LDL should be less than 100 preferably less than 70. On atorvastatin 80 mg daily. 3. Hypertension: Blood pressure is normal. On lisinopril 5 mg daily. 4. Chronic constipation: On a stool softener. DVT prophylaxis: On heparin 500 subcutaneous every 8 hourly. Code Visit Inpatient E&M: 21313 Init Hosp L2
[2019-03-28 01:13] VITALS: BMI 25.8
[2019-03-28] MEDS: Magnesium Hydroxide 30 ML UDC PO (05:13)
[2019-03-28] MEDS: Thyroid 60 MG Tablet 90 MG PO (05:17)
[2019-03-28] MEDS: Heparin Injection (Vial) 5,000 UNIT/ML VIAL 5000 UNIT SC ×3 (05:18→21:25)
[2019-03-28 06:09] LABS: Absolute Lymphocyte Count 2.01 X10^3/ul (0.83-4.51); Absolute Neutrophil Count 4.7 X10^3/uL (2.0-7.7); Basophil# 0.02 X10^3/uL; Basophil% 0.3 % (0-1); Eosinophil# 0.09 X10^3/uL; Eosinophils% 1.2 % (0-5); Hematocrit 41.6 % (37-47); Hemoglobin 14.6 g/dl (12.0-15.0); Lymphocyte # 2.01 X10^3/ul (4.0); Lymphocyte % 27.2 % (19-41); Mean Corp Hgb Conc 35.1 g/gl (32-36); Mean Corpuscular Hgb 29.7 pg (27.0-32.0); Mean Corpuscular Volume 84.6 fL (81-99); Mean Platelet Vol. 10.2 fl (6.2-12.0); Monocyte% 8.1 % (0-10); Neutrophil # 4.66 X10^3/uL (2.7-7.7); Neutrophil % 63.1 % (47-70); Platelet Count 205 K/mm3 (150-450); RBC Distribution Width CV 12.2 % (11.6-14.6); RBC Distribution Width SD 36.5 fl (35.1-43.9); Red Blood Count 4.92 M/mm3 (4.2-5.4); White Blood Count 7.4 K/mm3 (4.4-11.0)
[2019-03-28 06:10] LABS: POSITIVE COUNT NO; POSITIVE DIFFERENTIAL NO; POSITIVE MORPHOLOGY NO
[2019-03-28 06:26] LABS: Anion Gap 4 (5-15); BUN 7 mg/dL (7-18); BUN/Creat Ratio 12.3 RATIO (10-20); Calcium,Total 8.8 mg/dL (8.5-10.1); Chloride 106 mmol/L (98-107); Creatinine, Serum 0.57 mg/dL (0.55-1.02); EST Glomerular Filtration Rate 114 mL/min (>60); Est Glom Filt Rate - Afr Amer 138 mL/min (>60); Estimated Creatinine Clearance 76.23 ml/min; Glucose 98 mg/dL (74-106); Potassium 3.5 mmol/L (3.5-5.1); Sodium Level 139 mmol/L (136-145)
[2019-03-28 08:12] VITALS: BP 147/76; PULSE 58; RESP 18; TEMP 36.6; O2SAT 95
[2019-03-28] MEDS: Aspirin 325 MG Tablet PO (09:33)
[2019-03-28] MEDS: Senna/Docusate Sodium 1 Tablet 2 TABLET PO ×2 (09:33→21:24)
[2019-03-28] MEDS: FLUoxetine 10 MG Capsule 30 MG PO (09:33)
[2019-03-28] MEDS: Lisinopril 5 MG Tablet PO (09:33)
[2019-03-28 09:52] VITALS: BMI 25.8
[2019-03-28] MEDS: Acetaminophen 325 MG Tablet 650 MG PO ×2 (09:57→19:47)
--- NOTE | 2019-03-28 11:01 | REHABEVAL_ITS ---
Admission Information Status Changes from Prescreening?: No changes Identified Actual Problem List:: Mobility Impaired, Self Care Deficit Potential Problem List:: DVT, Bleeding, Infection, UTI, Aspiration, Falls, Skin Integrity, Depression Risk of Complications DVT: LMWH, WIL Hose, Sequential Compression Device Bleeding: Monitor Lab Values, Nursing to Teach Precautions for anti-coagulation therapy., Wound, if applicable, to be assessed every shift., Stroke patients assessed for lethargy or change in status. Infection: Clinical Staff to Monitor for S/S of infection:, S/S of infection include fever, redness, warmth, etc. Urinary Tract Infection: Monitor for frequency, burning, discomfort, or incontinence., Nursing will obtain urine sample for urinalysis and C&S when ordered. Aspiration: Clinical staff will monitor for coughing, drooling, congestion., Speech will evaluate swallowing and dsyphasia., Nursing will monitor patient swallowing during meals. Falls: Patient will be evaluated for Fall Precautions, Patient will be placed on Fall Precautions as indicated per protocol. Skin Breakdown: Nursing will assess skin daily using assessment tool., Nursing will place on Skin Breakdown Precautions as indicated. Pain: Clinical staff will assess patient's pain level per protocol., Medications will be given, if needed, and the pain level reassessed., Other methods: Massage, distraction, decrease stimulus, etc. used PRN. Plan of Care Patient requires physician specializing in physical medicine and rehab oversight to provide close medical supervision of rehab issues including: Pain Management, Sleep Problems, Bowel and Bladder, Medical and co-morbidity Management, DVT prophylaxis, Rehabilitation Leadership, Coordination of treatment team Patient needs Physical Therapy: For a minimum of 1 hour, At least 5 out of 7 days Patient needs Physical Therapy to improve:: Mobility, Mobility, Mobility, Strengthening, Transfers, Stretching, ROM, Endurance, Stairs, Gait, Balance Patient needs Occupational Therapy: For a minimum of 1 hour, At least 5 out of 7 days Patient needs Occupational Therapy to improve ADL's incl.: Eating, Grooming, Bathing, Dressing, Toileting, Toilet transfers, Community Reintegration, Higher functioning activities, Household tasks, Adaptive Equipment, Splinting, Other activities as determined Patient requires speech therapy: For a minimum of 1 hour, At least 5 out of 7 days Patient requires speech therapy for: Swallowing, Cognition, Language Skills, Compensatory Strategies Patient requires 24/ Rehabilitation Nursing for: Pain Issues, Identifying and preventing risk factors, Monitoring and reporting current medical conditions, Assisting with ambulation, transfer, and all ADL's, Teaching patients about disease process and medications, Family teaching, Providing safe environment, Bowel and Bladder Issues, Skin integrity, Medication Management Patient needs Operations [place]/ Case Management for: Discharge Planning, Arranging Home Equipment or Services, Family Interventions Patient needs Dietary and Nutrition Services for: Adequate Nutrition, Nutritional Supplements, Nutritional Education Goals Patient will remain: free from falls, or injury at time of discharge. Patient will perform bed mobility at: MOD I level of assist. Patient will complete transfers from bed to chair at: MOD I level of assist. Patient will ambulate: 100 feet, with MOD I assist, with LRD Patient will complete upper body dressing at: MOD I level of assist. Patient will complete lower body dressing at: MOD I level of assist. Patient will complete toileting at: MOD I level of assist. Patient will perform bathing at: MOD I level of assist. Patient will complete grooming at: MOD I level of assist. Patient will complete home management skills at: MOD I level of assist. Patient will achieve: 12 stairs, at MOD I assist Patient will have pain level of: of 3 or less Patient's skin will: remain intact, free from infection. Patient will receive: adequate nutrition. Discharge Planning Pt Prognosis for Sig. Practical Improv. w/in Reasonable Time: Good Estimated Length of stay (days): 16 Anticipated D/C Destination: Home Was Preadmission Assessment Accurate?: Yes
--- NOTE | 2019-03-28 12:57 | PCM.HP.COS ---
History of Present Illness Date of Admission: 03/27/19 Chief Complaint: Debility secondary to Right cerebellar infarct The patient is a 64 year old F with PMH of hypothyroidism and depression. Admitted to [facility] on 03/27/2019 with debility secondary to Right cerebellar infarct for greater of 3 hours of therapy daily with a goal of returning back home at or near her prior level of functional dependence. On 03/23/2019 patient presented to [place] ED with symptoms of vertigo and nausea, Natty maneuver performed, which resolved patient's vertigo and nystagmus. Then patient had a abrupt onset headache, nausea and vomiting with mild slurred speech. Patient was admitted to [facility]. Testing obtained was Brain CT; subtle chronic changes of microvascular ischemia versus demyelinating process. Brain MRI; acute right cerebellar infarct measuring 4 x 1.7 cm of the inferior right cerebellar hemisphere, minimal mass effect on the brain stem. Head MRA; Occlusion of the right vertebral artery. Neck MRA; Occlusion of the right vertebral artery. EKG: Normal sinus rhythm, Minimal voltage criteria for LVH, may be normal variant, Nonspecific ST abnormality, Prolonged QT. TPA was not indicated. On 03/24/2019, patient was transferred to [facility] and patient was admitted to the Neurovascular service to Dr. Schwarz. On 03/25/2019 LDL 123, HgbA1c 5.2%. Patient was started on statin, edmundo and asa. 03/25/2019 CT angio of brain/neck; Occlusion of the right vertebral artery, with reconstitution intracranially at the V4 segment. 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 TTE was ordered at [facility], but no results available for review. NIHSS 0 on 03/25/2019. [facility] referred to patient to [facility] to increase strength and mobility. 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 Past Medical History Past Medical History (Chronic Problems): Chronic Problems (Last Updated 03/28/19 @ 13:09 by INGE Higgins) Hypothyroidism (Chronic) Medical History: Medical History (Last Updated 03/28/19 @ 13:09 by Jesika S Weygandt, REMOTE OPERATIONS PRODUCER-C) Arthritis M19.90 Hay fever J30.1 Hemorrhoids K64.9 Shoulder pain M25.519 Thyroid disease E07.9 Chronic neck and back pain M54.2, M54.9, G89.29 Allergies morphine Allergy (Mild, Verified 01/24/19 16:00) unknown sulfamethoxazole [From Bactrim] Allergy (Mild, Verified 01/24/19 16:00) unknown tea tree Allergy (Mild, Verified 01/24/19 16:00) unknown trimethoprim [From Bactrim] Allergy (Mild, Verified 01/24/19 16:00) unknown Home Medications: Ambulatory Orders Medication Instructions Recorded fluoxetine 40 mg capsule 30 mg PO DAILY 01/24/19 Thyroid [[place] Thyroid] 90 mg PO DAILY 03/23/19 Ondansetron [Zofran Odt] 4 mg PO Q6H PRN PRN 03/27/19 Surgical History: rotator cuff repair, - - Wrist surgery; left foot surgery. Psychiatric History: Depression Lives: Alone Smoking Status: Former smoker Tobacco Use: Non-smoker Drugs: None - *Family History Maternal History Items: Diabetes, Dementia, Heart Disease, - - Maternal grandmother had brain aneurysm and subarachnoid hemorrhage Paternal History Items: Cancer - Lung cancer Sibling History Items: Cancer - Lung, Stroke Review of Systems Constitutional: Denies: Chills, Fever, Weight Change Eyes: Denies: Blurred vision, Double vision, Pain, Vision Change HEENT: Denies: Difficulty Hearing, Difficulty Swallowing, Dysphasia, Head Aches, Sinus Congestion, Sinus Drainage Cardiovascular: Denies: Chest Pain, Chest Pressure, Chest Tightness, Palpitations Respiratory: Denies: Cough, Shortness of breath at rest, Sputum production Gastrointestinal: Denies: Abdominal Pain, Nausea, Vomiting Genitourinary: Denies: Dysuria, Incontinence Musculoskeletal: Denies: Joint Pain, Joint Tenderness Skin: Denies: Rash, Wounds Neurological: Reports: Headaches - mild dull ache to frontal area. Denies: Blurred vision, Double vision Psychiatric: Denies: Anxiety, Depression, Homicidal Ideations, Suicidal Ideations Hematologic/ Lymphatic: Denies: Easy Bruising, Easy Bleeding VTE Information - Inpt Only VTE Present on Admission: No VTE Mechan Device Prophylaxis: Thigh High WIL Hose VTE Pharm Prophylaxis ordered?: Yes Patient Problems: Active and Suspected Problems (Last Updated 03/28/19 @ 13:09 by Jesika Rosenthal, REMOTE OPERATIONS PRODUCER-C) Depression (Acute) Subjective: Per nursing no issues overnight. Per patient has headache to frontal area, describes as mild and dull ache. Denies blurred or double vision, dizziness or lightheadedness. Per patient is tolerating therapies this am and denies further questions or concerns. - Physical Exam General: Alert, Oriented x3, Cooperative HEENT: Atraumatic, PERRLA Oral: - - white coating on tongue Neck: Supple, No JVD Lungs: Clear to auscultation, Normal air movement Cardiovascular: Regular rate, Regular Rhythm Abdomen: Bowel Sounds Present, Soft, Non Tender Extremities: No clubbing, No cyanosis, No edema Skin: No rashes, No breakdown Musculoskeletal: No Tenderness to Palpation of Joints or Extremities Neurological: Cranial nerves II-XII grossly intact, Deep Tendon Reflexes 2+/4 and Symmetrical, Neuro grossly intact, Motor Exam 5/5 strength throughout - except right lower extremity 4/5. NIHSS 0., - Psych/Mental Status: Normal Affect, Appropriate, Alert and oriented to time, place, person, mood and affect Vital Signs Temp Pulse Resp BP Pulse Ox 98 F 58 L 18 147/76 H 95 03/28/19 08:12 03/28/19 08:12 03/28/19 08:12 03/28/19 08:12 03/28/19 08:12 Oxygen Delivery Method Room Air Weight: 63.7 kg Body Mass Index (BMI) 25.8 Laboratory Tests Past 24 Hrs 03/28/19 03/28/19 05:02 05:02 WBC 7.4 RBC 4.92 Hgb 14.6 Hct 41.6 MCV 84.6 MCH 29.7 MCHC 35.1 RDW 12.2 RDW Differential 36.5 Plt Count 205 MPV 10.2 Immature Gran % (Auto) 0.100 Neut % (Auto) 63.1 Lymph % (Auto) 27.2 [place] % (Auto) 8.1 Eos % (Auto) 1.2 Baso % (Auto) 0.3 Absolute Neuts (auto) 4.7 Absolute Lymphs (auto) 2.01 Total Counted Not Reportable Sodium 139 Potassium 3.5 Chloride 106 Carbon Dioxide 29.0 Anion Gap 4 L BUN 7 Creatinine 0.57 Estim Creat Clear Calc 76.23 Est GFR (MDRD) Af Amer 138 Est GFR (MDRD) Non-Af 114 BUN/Creatinine Ratio 12.3 Glucose 98 Calcium 8.8 Assessment/Plan All Active Problems (Last Updated 03/28/19 @ 13:09 by Jesika Rosenthal, REMOTE OPERATIONS PRODUCER-C) Benign paroxysmal positional vertigo (Acute) Vertigo (Acute) Depression (Acute) The patient is a 64 year old F with PMH of hypothyroidism and depression. Admitted to [facility] on 03/27/2019 with debility secondary to Right cerebellar infarct for greater of 3 hours of therapy daily with a goal of returning back home at or near her prior level of functional dependence. On 03/23/2019 patient presented to [place] ED with symptoms of vertigo and nausea, Natty maneuver performed, which resolved patient's vertigo and nystagmus. Then patient had a abrupt onset headache, nausea and vomiting with mild slurred speech. Patient was admitted to [facility]. Testing obtained was Brain CT; subtle chronic changes of microvascular ischemia versus demyelinating process. Brain MRI; acute right cerebellar infarct measuring 4 x 1.7 cm of the inferior right cerebellar hemisphere, minimal mass effect on the brain stem. Head MRA; Occlusion of the right vertebral artery. Neck MRA; Occlusion of the right vertebral artery. EKG: Normal sinus rhythm, Minimal voltage criteria for LVH, may be normal variant, Nonspecific ST abnormality, Prolonged QT. TPA was not indicated. On 03/24/2019, patient was transferred to [facility] and patient was admitted to the Neurovascular service to Dr. Schwarz. On 03/25/2019 LDL 123, HgbA1c 5.2%. Patient was started on statin, edmundo and asa. 03/25/2019 CT angio of brain/neck; Occlusion of the right vertebral artery, with reconstitution intracranially at the V4 segment. 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 TTE was ordered at [facility], but no results available for review. NIHSS 0 on 03/25/2019. [facility] referred to patient to [facility] to increase strength and mobility. 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 Plan - PT for mobility - OT for ADLs - ST for cognitive - Analgesics as needed - Right cerebellar infarct on asa, statin and edmundo - Depression on prozac - Hypothyroidism on Jag - Hyperlipidemia LDL 123 on statin - Thrush start nystatin - GI/DVT prophylaxis on pepcid/Heparin SQ, thigh high teds - Fall precautions - Bowel protocol - Further medical management per hospitalist recommendation, hospitalist consult - F/U with PCP and neurologist
--- NOTE | 2019-03-28 13:02 | HP.PCM.COS_ITS ---
History of Present Illness Date of Admission: 03/27/19 Chief Complaint: Debility secondary to Right cerebellar infarct The patient is a 64 year old F with PMH of hypothyroidism and depression. A dmitted to [facility] on 03/27/2019 with debility secondary to Right cerebellar infarct for greater of 3 hours of therapy daily with a goal of returning back home at or near her prior level of functional dependence. On 03/23/2019 patient presented to [place] ED with symptoms of vertigo and nausea, Natty maneuver performed, which resolved patient's vertigo and nystagmus. Then patient had a abrupt onset headache, nausea and vomiting with mild slurred speech. Patient was admitted to [facility]. Testing obtained was Brain CT; subtle chronic changes of microvascular ischemia versus demyelinating process. Brain MRI; acute right cerebellar infarct measuring 4 x 1.7 cm of the inferior right cerebellar hemisphere, minimal mass effect on the brain stem. Head MRA; Occlusion of the right vertebral artery. Neck MRA; Occlusion of the right vertebral artery. EKG: Normal sinus rhythm, Minimal voltage criteria for LVH, may be normal variant, Nonspecific ST abnormality, Prolonged QT. TPA was not indicated. On 03/24/2019, patient was transferred to [facility] and patient was admitted to the Neurovascular service to Dr. Schwarz. On 03/25/2019 LDL 123, HgbA1c 5.2%. Patient was started on statin, edmundo and asa. 03/25/2019 CT angio of brain/neck; Occlusion of the right vertebral artery, with reconstitution intracranially at the V4 segment. 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 TTE was ordered at [facility], but no results available for review. NIHSS 0 on 03/25/2019. [facility] referred [facility] patient to [facility] to increase strength and mobility. 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 Past Medical History Past Medical History (Chronic Problems): Chronic Problems (Last Updated 03/28/19 @ 13:09 by INGE Higgins) Hypothyroidism (Chronic) Medical History: Medical History (Last Updated 03/28/19 @ 13:09 by Jesika S Weygandt, METER AND REGULATOR SHOP SUPERVISOR-C) Arthritis M19.90 Hay fever J30.1 Hemorrhoids K64.9 Shoulder pain M25.519 Thyroid disease E07.9 Chronic neck and back pain M54.2, M54.9, G89.29 Allergies morphine Allergy (Mild, Verified 01/24/19 16:00) unknown sulfamethoxazole [From Bactrim] Allergy (Mild, Verified 01/24/19 16:00) unknown tea tree Allergy (Mild, Verified 01/24/19 16:00) unknown trimethoprim [From Bactrim] Allergy (Mild, Verified 01/24/19 16:00) unknown Home Medications: Ambulatory Orders Medication Instructions Recorded fluoxetine 40 mg capsule 30 mg PO DAILY 01/24/19 Thyroid [[place] Thyroid] 90 mg PO DAILY 03/23/19 Ondansetron [Zofran Odt] 4 mg PO Q6H PRN PRN 03/27/19 Surgical History: rotator cuff repair, - - Wrist surgery; left foot surgery. Psychiatric History: Depression Lives: Alone Smoking Status: Former smoker Tobacco Use: Non-smoker Drugs: None - *Family History Maternal History Items: Diabetes, Dementia, Heart Disease, - - Maternal grandmother had brain aneurysm and subarachnoid hemorrhage Paternal History Items: Cancer - Lung cancer Sibling History Items: Cancer - Lung, Stroke Review of Systems Constitutional: Denies: Chills, Fever, Weight Change Eyes: Denies: Blurred vision, Double vision, Pain, Vision Change HEENT: Denies: Difficulty Hearing, Difficulty Swallowing, Dysphasia, Head Aches, Sinus Congestion, Sinus Drainage Cardiovascular: Denies: Chest Pain, Chest Pressure, Chest Tightness, P alpitations Respiratory: Denies: Cough, Shortness of breath at rest, Sputum production Gastrointestinal: Denies: Abdominal Pain, Nausea, Vomiting Genitourinary: Denies: Dysuria, Incontinence Musculoskeletal: Denies: Joint Pain, Joint Tenderness Skin: Denies: Rash, Wounds Neurological: Reports: Headaches - mild dull ache to frontal area. Denies: Blurred vision, Double vision Psychiatric: Denies: Anxiety, Depression, Homicidal Ideations, Suicidal Ideations Hematologic/ Lymphatic: Denies: Easy Bruising, Easy Bleeding VTE Information - Inpt Only VTE Present on Admission: No VTE Mechan Device Prophylaxis: Thigh High WIL Hose VTE Pharm Prophylaxis ordered?: Yes Patient Problems: Active and Suspected Problems (Last Updated 03/28/19 @ 13:09 by Jesika Rosenthal, METER AND REGULATOR [employer] SUPERVISOR-C) Depression (Acute) Subjective: Per nursing no issues overnight. Per patient has headache to frontal area, describes as mild and dull ache. Denies blurred or double vision, dizziness or lightheadedness. Per patient is tolerating therapies this am and denies further questions or concerns. - Physical Exam General: Alert, Oriented x3, Cooperative HEENT: Atraumatic, PERRLA Oral: - - white coating on tongue Neck: Supple, No JVD Lungs: Clear to auscultation, Normal air movement Cardiovascular: Regular rate, Regular Rhythm Abdomen: Bowel Sounds Present, Soft, Non Tender Extremities: No clubbing, No cyanosis, No edema Skin: No rashes, No breakdown Musculoskeletal: No Tenderness to Palpation of Joints or Extremities Neurological: Cranial nerves II-XII grossly intact, Deep Tendon Reflexes 2+/4 and Symmetrical, Neuro grossly intact, Motor Exam 5/5 strength throughout - except right lower extremity 4/5. NIHSS 0., - Psych/Mental Status: Normal Affect, Appropriate, Alert and oriented to time, place, person, mood and affect Vital Signs Temp Pulse Resp BP Pulse Ox 98 F 58 L 18 147/76 H 95 03/28/19 08:12 03/28/19 08:12 03/28/19 08:12 03/28/19 08:12 03/28/19 08:12 Oxygen Delivery Method Room Air Weight: 63.7 kg Body Mass Index (BMI) 25.8 Laboratory Tests Past 24 Hrs 03/28/19 03/28/19 05:02 05:02 WBC 7.4 RBC 4.92 Hgb 14.6 Hct 41.6 MCV 84.6 MCH 29.7 MCHC 35.1 RDW 12.2 RDW Differential 36.5 Plt Count 205 MPV 10.2 Immature Gran % (Auto) 0.100 Neut % (Auto) 63.1 Lymph % (Auto) 27.2 [place] % (Auto) 8.1 Eos % (Auto) 1.2 Baso % (Auto) 0.3 Absolute Neuts (auto) 4.7 Absolute Lymphs (auto) 2.01 Total Counted Not Reportable Sodium 139 Potassium 3.5 Chloride 106 Carbon Dioxide 29.0 Anion Gap 4 L BUN 7 Creatinine 0.57 Estim Creat Clear Calc 76.23 Est GFR (MDRD) Af Amer 138 Est GFR (MDRD) Non-Af 114 BUN/Creatinine Ratio 12.3 Glucose 98 Calcium 8.8 Assessment/Plan All Active Problems (Last Updated 03/28/19 @ 13:09 by Jesika Rosenthal, METER AND REGULATOR [employer] SUPERVISOR-C) Benign paroxysmal positional vertigo (Acute) Vertigo (Acute) Depression (Acute) The patient is a 64 year old F with PMH of hypothyroidism and depression. A dmitted to [facility] on 03/27/2019 with debility secondary to Right cerebellar infarct for greater of 3 hours of therapy daily with a goal of returning back home at or near her prior level of functional dependence. On 03/23/2019 patient presented to [place] ED with symptoms of vertigo and nausea, Natty maneuver performed, which resolved patient's vertigo and nystagmus. Then patient had a abrupt onset headache, nausea and vomiting with mild slurred speech. Patient was admitted to [facility]. Testing obtained was Brain CT; subtle chronic changes of microvascular ischemia versus demyelinating process. Brain MRI; acute right cerebellar infarct measuring 4 x 1.7 cm of the inferior right cerebellar hemisphere, minimal mass effect on the brain stem. Head MRA; Occlusion of the right vertebral artery. Neck MRA; Occlusion of the right vertebral artery. EKG: Normal sinus rhythm, Minimal voltage criteria for LVH, may be normal variant, Nonspecific ST abnormality, Prolonged QT. TPA was not indicated. On 03/24/2019, patient was transferred to [facility] and patient was admitted to the Neurovascular service to Dr. Schwarz. On 03/25/2019 LDL 123, HgbA1c 5.2%. Patient was started on statin, edmundo and asa. 03/25/2019 CT angio of brain/neck; Occlusion of the right vertebral artery, with reconstitution intracranially at the V4 segment. 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 TTE was ordered at [facility], but no results available for review. NIHSS 0 on 03/25/2019. [facility] referred [facility] to increase strength and mobility. 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 Plan - PT for mobility - OT for ADLs - ST for cognitive - Analgesics as needed - Right cerebellar infarct on asa, statin and edmundo - Depression on prozac - Hypothyroidism on Jag - Hyperlipidemia LDL 123 on statin - Thrush start nystatin - GI/DVT prophylaxis on pepcid/Heparin SQ, thigh high teds - Fall precautions - Bowel protocol - Further medical management per hospitalist recommendation, hospitalist consult - F/U with PCP and neurologist
[2019-03-28] MEDS: NYSTATIN 500,000 UNIT/5 ML UDC 500000 UNIT PO ×4 (13:08→21:24)
[2019-03-28 18:58] VITALS: BP 132/75; PULSE 67; RESP 18; TEMP 36.9; O2SAT 97
--- NOTE | 2019-03-28 20:39 | NURSING ---
PT REPORTS SHE HAS BEEN HAVING HEADACHES SINCE HER STROKE. PT DENIES BLURRED OR DOUBLE VISION AND DENIES DIZZINESS WHEN OOB TO RESTROOM. SPEECH IS CLEAR AND APPROPRIATE. MATHIAS IMPROVING SINCE TYLENOL.
--- NOTE | 2019-03-28 21:20 | NURSING ---
REPORTS MATHIAS PAIN IS RATED A #2 NOW. PT IS READING. PT STATES SINCE HER STROKE HER MAHTIAS PAIN HAS BEEN ALMOST CONTINUOUS.
[2019-03-28] MEDS: Atorvastatin Calcium 80 MG Tablet PO (21:25)
[2019-03-29 05:00] VITALS: BMI 25.8
--- NOTE | 2019-03-29 05:00 | NURSING ---
PT WAKES TO USE RESTROOM. REPORTS TO HAVE SLEPT WELL. REPORTS TO HAVE A HEADACHE RATED #3 WHICH IS FRONTAL AND RADIATES TO OCCIPITAL AREA OF HEAD. NEURO STATUS UNCHANGED FROM EARLIER THIS SHIFT. DENIES DIZZINESS.
[2019-03-29] MEDS: Acetaminophen 325 MG Tablet 650 MG PO ×2 (05:14→14:17)
[2019-03-29 05:46] VITALS: BP 125/70; PULSE 60
[2019-03-29] MEDS: Heparin Injection (Vial) 5,000 UNIT/ML VIAL 5000 UNIT SC ×3 (05:54→20:33)
[2019-03-29] MEDS: Thyroid 60 MG Tablet 90 MG PO (05:54)
--- NOTE | 2019-03-29 06:06 | NURSING ---
REDNESS TO L FOREARM IS SUBSIDING. NO WARMTH. MILD TENDERNESS TO PALPATION. NO RED STREAKING.
[2019-03-29] MEDS: Famotidine 20 MG Tablet PO (07:58)
[2019-03-29] MEDS: Aspirin 325 MG Tablet PO (07:58)
[2019-03-29] MEDS: NYSTATIN 500,000 UNIT/5 ML UDC 500000 UNIT PO ×3 (07:58→18:19)
[2019-03-29] MEDS: FLUoxetine 10 MG Capsule 30 MG PO (07:58)
[2019-03-29] MEDS: Lisinopril 5 MG Tablet PO (07:59)
[2019-03-29] MEDS: Senna/Docusate Sodium 1 Tablet 2 TABLET PO ×2 (07:59→20:35)
[2019-03-29 08:06] VITALS: BP 129/75; PULSE 60; RESP 16; TEMP 36.7; O2SAT 97
[2019-03-29 08:15] VITALS: O2SAT 96
[2019-03-29] MEDS: Ondansetron ODT 4 MG Tablet PO ×2 (09:42→20:33)
[2019-03-29 09:44] VITALS: BP 123/68; BP 124/65; BP 99/55; PULSE 65; PULSE 72; PULSE 76
--- NOTE | 2019-03-29 09:46 | PN.NEURO_ITS ---
Patient Problems: Active and Suspected Problems (Last Updated 03/28/19 @ 13:09 by INGE Higgins) Depression (Acute) Subjective: Per nursing no issues overnight. Patient requesting Knee high david hose instead of Thigh high david hose d/t discomfort to upper thighs. During balance exercise with PT, pt started to have dizziness but then subsided at rest. Now patient has mild nausea. Patient denies headache, lightheadedness, double or blurred vision. Patient denies further questions or concerns. - Physical Exam General: Alert, Oriented x3, Cooperative HEENT: Atraumatic, PERRLA Oral: Moist Mucosa, - - minimal white coating on tongue Neck: Supple, No JVD Lungs: Clear to auscultation, Normal air movement Cardiovascular: Regular rate, Regular Rhythm Abdomen: Bowel Sounds Present, Soft, Non Tender Extremities: No clubbing, No cyanosis, No edema Musculoskeletal: No Tenderness to Palpation of Joints or Extremities, - Neurological: - - Cranial nerves II-XII grossly intact, Deep Tendon Reflexes 2+/4 and Symmetrical, Neuro grossly intact, Motor Exam 5/5 strength throughout - except right lower extremity 4/5. NIHSS 0 Psych/Mental Status: Normal Affect, Appropriate, Alert and oriented to time, place, person, mood and affect Vital Signs Temp Pulse Resp BP Pulse Ox 98.1 F 60 16 129/75 H 97 03/29/19 08:06 03/29/19 08:06 03/29/19 08:06 03/29/19 08:06 03/29/19 08:06 Oxygen Delivery Method Room Air Weight: 63.7 kg Body Mass Index (BMI) 25.8 Intake and Output for Last 24 Hours 03/27/19 03/28/19 03/29/19 23:59 23:59 23:59 Intake Total 180 / 180 Balance 180 / 180 Medical Necessity - Tobacco Use Smoking Status: Former smoker Tobacco Use: Non-smoker Assessment/Plan All Active Problems (Last Updated 03/28/19 @ 13:09 by INGE Higgins) Benign paroxysmal positional vertigo (Acute) Vertigo (Acute) Depression (Acute) The patient is a 64 year old F with PMH of hypothyroidism and depression. A dmitted to [facility] on 03/27/2019 with debility secondary to Right cerebellar infarct for greater of 3 hours of therapy daily with a goal of returning back home at or near her prior level of functional dependence. On 03/23/2019 patient presented to [place] ED with symptoms of vertigo and nausea, Natty maneuver performed, which resolved patient's vertigo and nystagmus. Then patient had a abrupt onset headache, nausea and vomiting with mild slurred speech. Patient was admitted to [facility]. Testing obtained was Brain CT; subtle chronic changes of microvascular ischemia versus demyelinating process. Brain MRI; acute right cerebellar infarct measuring 4 x 1.7 cm of the inferior right cerebellar hemisphere, minimal mass effect on the brain stem. Head MRA; Occlusion of the right vertebral artery. Neck MRA; Occlusion of the right vertebral artery. EKG: Normal sinus rhythm, Minimal voltage criteria for LVH, may be normal variant, Nonspecific ST abnormality, Prolonged QT. TPA was not indicated. On 03/24/2019, patient was transferred to [facility] and patient was admitted to the Neurovascular service to Dr. Schwarz. On 03/25/2019 LDL 123, HgbA1c 5.2%. Patient was started on statin, edmundo and asa. 03/25/2019 CT angio of brain/neck; Occlusion of the right vertebral artery, with reconstitution intracranially at the V4 segment. 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 TTE was ordered at [facility], but no results available for review. NIHSS 0 on 03/25/2019. [facility] referred to patient to [facility] to increase strength and mobility. 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 Plan - PT for mobility - OT for ADLs - ST for cognitive - Analgesics as needed - Right cerebellar infarct on asa, statin and edmundo. 30 day event monitor at discharge - Depression on prozac - Hypothyroidism on Jag - Hyperlipidemia LDL 123 on statin - Thrush start nystatin - GI/DVT prophylaxis on pepcid/Heparin SQ, thigh high teds - Vertigo obtain orthostatic blood pressures - Fall precautions - Bowel protocol - Further medical management per hospitalist recommendation, hospitalist consult - F/U with PCP and neurologist and 30 day event monitor
--- NOTE | 2019-03-29 11:16 | PCM.PN.HOSP ---
Patient Problems: Active and Suspected Problems (Last Updated 03/28/19 @ 13:09 by Jesika Rosenthal, SHIRIN-C) Depression (Acute) Subjective: Patient is a 64-year-old lady admitted with acute right cerebellar hemispheric ischemic stroke secondary to right vertebral artery for which patient was managed conservatively at [facility] and transferred to the [facility] inpatient rehab unit Objective: GENERAL: cooperative HEENT: Atraumatic; EYES; Anicteric, Normal Conjunctiva NECK; supple, normal thyroid, RESPIRATORY: Diminished to auscultation bilaterally, CARDIOVASCULAR: Regular S1 S2, GI: soft, non-tender, normoactive bowel sounds, : No Renal angle tenderness; EXTREMITIES: No edema, no clubbing, no cyanosis. MUSCULOSKELETAL: No Joint Tenderness; NEURO: Awake; no lateralizing signs. SKIN: No Rash PSYCH; Normal affect Vitals/I&O's: Vital Signs Temp Pulse Resp BP Pulse Ox 98.1 F 65 16 124/65 H 97 03/29/19 08:06 03/29/19 09:44 03/29/19 08:06 03/29/19 09:44 03/29/19 08:06 Oxygen Delivery Method Room Air Weight: 63.7 kg Body Mass Index (BMI) 25.8 Orthostatic Vital Signs Start: 03/29/19 09:44 Freq: q24h Status: Active Protocol: Activity Type Activity Date Activity User E-Sign Co-Sign Detail Recorded Client Recorded Date Recorded By Document 03/29/19 09:44 AO [id number] 03/29/19 09:45 AO 03/29/19 09:44 Orthostatic Vitals Standing -Blood Pressure (90/60-120/80) 99/55 L -Extremity Use Right Arm -Pulse Rate (60-100) 76 Sitting -Blood Pressure (90/60-120/80) 123/68 H -Extremity Use Right Arm -Pulse Rate (60-100) 72 Lying -Blood Pressure (90/60-120/80) 124/65 H -Extremity Use Right Arm -Pulse Rate (60-100) 65 Intake and Output for Last 24 Hours 03/27/19 03/28/19 03/29/19 23:59 23:59 23:59 Intake Total 180 / 180 Balance 180 / 180 Current Medications Acetaminophen (Tylenol) 650 mg PO Q8H PRN PRN PRN Reason: Mild Pain (0-3/10)/Headache Last Admin: 03/29/19 05:14 Dose: 650 mg Aspirin (Aspirin) 325 mg PO DAILY@0800 [facility] Last Admin: 03/29/19 07:58 Dose: 325 mg Atorvastatin Calcium (Lipitor) 80 mg PO QHS [facility] Last Admin: 03/28/19 21:25 Dose: 80 mg Bisacodyl (Dulcolax) 10 mg RECTAL .PRN X 1 PRN PRN Reason: Constipation Famotidine (Pepcid) 20 mg PO DAILY [facility] Last Admin: 03/29/19 07:58 Dose: 20 mg Fluoxetine HCl (Prozac) 30 mg PO DAILY [facility] Last Admin: 03/29/19 07:58 Dose: 30 mg Heparin Sodium (Porcine) (Heparin Na) 5,000 unit SC Q8 [facility] Last Admin: 03/29/19 05:54 Dose: 5,000 unit Lisinopril (Zestril) 5 mg PO DAILY [facility] Last Admin: 03/29/19 07:59 Dose: 5 mg Magnesium Hydroxide (Milk Of Magnesia) 30 ml PO .PRN X 1 PRN PRN Reason: Constipation Last Admin: 03/28/19 05:13 Dose: 30 ml Nystatin (Nystatin) 500,000 unit PO 4X/DAY [facility] Last Admin: 03/29/19 07:58 Dose: 500,000 unit Ondansetron HCl (Zofran Odt) 4 mg PO Q6H PRN PRN PRN Reason: NAUSEA/VOMITING Last Admin: 03/29/19 09:42 Dose: 4 mg Senna/Docusate Sodium (Senokot-S, Ingrid-Colace) 2 tablet PO BID [facility] Last Admin: 03/29/19 07:59 Dose: 2 tablet Thyroid ([place] Thyroid) 90 mg PO DAILY@0600 [facility] Last Admin: 03/29/19 05:54 Dose: 90 mg Medical Necessity - Tobacco Use Smoking Status: Former smoker Tobacco Use: Non-smoker Assessment/Plan All Active Problems (Last Updated 03/28/19 @ 13:09 by Jesika Rosenthal, BILLING CONTROL CLERK-C) Benign paroxysmal positional vertigo (Acute) Vertigo (Acute) Depression (Acute) Patient is a 64-year-old lady admitted with acute right cerebellar hemispheric ischemic stroke secondary to right vertebral artery for which patient was managed conservatively at [facility] and transferred to the [facility] inpatient rehab unit 1. Acute right cerebellar hemispheric stroke secondary to occlusion of the right vertebral artery 2. Physical debility secondary to above 3. Dyslipidemia-patient is on statin therapy, continued at home dose 4. Hypertension-blood pressure controlled, home medications continued with dose adjustment 5. Chronic constipation patient is on routine stool softeners 6. DVT prophylaxis SC heparin Code Visit Inpatient E&M: 24726 Subs Hosp L2
--- NOTE | 2019-03-29 11:23 | PN_ITS ---
Patient Problems: Active and Suspected Problems (Last Updated 03/28/19 @ 13:09 by Jesika Rosenthal, SHIRIN-C) Depression (Acute) Subjective: Patient is a 64-year-old lady admitted with acute right cerebellar hemispheric ischemic stroke secondary to right vertebral artery for which patient was managed conservatively at [facility] and transferred to the [facility] inpatient rehab unit Objective: GENERAL: cooperative HEENT: Atraumatic; EYES; Anicteric, Normal Conjunctiva NECK; supple, normal thyroid, RESPIRATORY: Diminished to auscultation bilaterally, CARDIOVASCULAR: Regular S1 S2, GI: soft, non-tender, normoactive bowel sounds, : No Renal angle tenderness; EXTREMITIES: No edema, no clubbing, no cyanosis. MUSCULOSKELETAL: No Joint Tenderness; NEURO: Awake; no lateralizing signs. SKIN: No Rash PSYCH; Normal affect Vitals/I&O's: Vital Signs Temp Pulse Resp BP Pulse Ox 98.1 F 65 16 124/65 H 97 03/29/19 08:06 03/29/19 09:44 03/29/19 08:06 03/29/19 09:44 03/29/19 08:06 Oxygen Delivery Method Room Air Weight: 63.7 kg Body Mass Index (BMI) 25.8 Orthostatic Vital Signs Start: 03/29/19 09:44 Freq: q24h Status: Active Protocol: Activity Type Activity Date Activity User E-Sign Co-Sign Detail Recorded Client Recorded Date Recorded By Document 03/29/19 09:44 AO [id number] 03/29/19 09:45 AO 03/29/19 09:44 Orthostatic Vitals Standing -Blood Pressure (90/60-120/80) 99/55 L -Extremity Use Right Arm -Pulse Rate (60-100) 76 Sitting -Blood Pressure (90/60-120/80) 123/68 H -Extremity Use Right Arm -Pulse Rate (60-100) 72 Lying -Blood Pressure (90/60-120/80) 124/65 H -Extremity Use Right Arm -Pulse Rate (60-100) 65 Intake and Output for Last 24 Hours 03/27/19 03/28/19 03/29/19 23:59 23:59 23:59 Intake Total 180 / 180 Balance 180 / 180 Current Medications Acetaminophen (Tylenol) 650 mg PO Q8H PRN PRN PRN Reason: Mild Pain (0-3/10)/Headache Last Admin: 03/29/19 05:14 Dose: 650 mg Aspirin (Aspirin) 325 mg PO DAILY@0800 [facility] Last Admin: 03/29/19 07:58 Dose: 325 mg Atorvastatin Calcium (Lipitor) 80 mg PO QHS [facility] Last Admin: 03/28/19 21:25 Dose: 80 mg Bisacodyl (Dulcolax) 10 mg RECTAL .PRN X 1 PRN PRN Reason: Constipation Famotidine (Pepcid) 20 mg PO DAILY [facility] Last Admin: 03/29/19 07:58 Dose: 20 mg Fluoxetine HCl (Prozac) 30 mg PO DAILY [facility] Last Admin: 03/29/19 07:58 Dose: 30 mg Heparin Sodium (Porcine) (Heparin Na) 5,000 unit SC Q8 [facility] Last Admin: 03/29/19 05:54 Dose: 5,000 unit Lisinopril (Zestril) 5 mg PO DAILY [facility] Last Admin: 03/29/19 07:59 Dose: 5 mg Magnesium Hydroxide (Milk Of Magnesia) 30 ml PO .PRN X 1 PRN PRN Reason: Constipation Last Admin: 03/28/19 05:13 Dose: 30 ml Nystatin (Nystatin) 500,000 unit PO 4X/DAY [facility] Last Admin: 03/29/19 07:58 Dose: 500,000 unit Ondansetron HCl (Zofran Odt) 4 mg PO Q6H PRN PRN PRN Reason: NAUSEA/VOMITING Last Admin: 03/29/19 09:42 Dose: 4 mg Senna/Docusate Sodium (Senokot-S, Ingrid-Colace) 2 tablet PO BID [facility] Last Admin: 03/29/19 07:59 Dose: 2 tablet Thyroid ([place] Thyroid) 90 mg PO DAILY@0600 [facility] Last Admin: 03/29/19 05:54 Dose: 90 mg Medical Necessity - Tobacco Use Smoking Status: Former smoker Tobacco Use: Non-smoker Assessment/Plan All Active Problems (Last Updated 03/28/19 @ 13:09 by Jesika Rosenthal, SWITCHBOARD OPERATOR ASSISTANT-C) Benign paroxysmal positional vertigo (Acute) Vertigo (Acute) Depression (Acute) Patient is a 64-year-old lady admitted with acute right cerebellar hemispheric ischemic stroke secondary to right vertebral artery for which patient was managed conservatively at [facility] and transferred to the [facility] inpatient rehab unit 1. Acute right cerebellar hemispheric stroke secondary to occlusion of the right vertebral artery 2. Physical debility secondary to above 3. Dyslipidemia-patient is on statin therapy, continued at home dose 4. Hypertension-blood pressure controlled, home medications continued with dose adjustment 5. Chronic constipation patient is on routine stool softeners 6. DVT prophylaxis SC heparin Code Visit Inpatient E&M: 50499 Subs Hosp L2
--- NOTE | 2019-03-29 12:27 | CASEMGMT ---
Insurance Clinical update faxed. Will await continued stay determination. Auth# [id number] CITLALLI Newberry
[2019-03-29 13:56] VITALS: BMI 25.8
[2019-03-29 20:25] VITALS: BP 135/66; PULSE 69; RESP 16; TEMP 36.8; O2SAT 98
[2019-03-29] MEDS: Atorvastatin Calcium 80 MG Tablet PO (20:35)
[2019-03-29 23:09] VITALS: BMI 25.8
[2019-03-30 06:10] VITALS: O2SAT 96
[2019-03-30] MEDS: Thyroid 60 MG Tablet 90 MG PO (06:40)
[2019-03-30] MEDS: Heparin Injection (Vial) 5,000 UNIT/ML VIAL 5000 UNIT SC ×3 (06:40→21:10)
[2019-03-30] MEDS: FLUoxetine 10 MG Capsule 30 MG PO (07:59)
[2019-03-30] MEDS: Aspirin 325 MG Tablet PO (07:59)
[2019-03-30 08:00] VITALS: BP 119/65; PULSE 68; RESP 18; TEMP 36.7; O2SAT 97
[2019-03-30] MEDS: Famotidine 20 MG Tablet PO (08:00)
[2019-03-30] MEDS: NYSTATIN 500,000 UNIT/5 ML UDC 500000 UNIT PO ×4 (08:00→21:10)
[2019-03-30] MEDS: Acetaminophen 325 MG Tablet 650 MG PO (08:02)
[2019-03-30] MEDS: Lisinopril 2.5 MG Tablet PO (08:05)
[2019-03-30] MEDS: Ondansetron ODT 4 MG Tablet PO (08:57)
[2019-03-30 14:00] VITALS: BP 100/52; BP 132/67; BP 133/78; PULSE 55; PULSE 63; PULSE 77
[2019-03-30 14:30] VITALS: BMI 25.8
--- NOTE | 2019-03-30 16:00 | NURSING ---
Dr. Foster aware of orthostatic bp's and new order to dc lisinopril and patient made aware.
[2019-03-30 19:29] VITALS: BP 130/78; PULSE 97; RESP 16; TEMP 36.8; O2SAT 97
[2019-03-30] MEDS: Atorvastatin Calcium 80 MG Tablet PO (21:10)
[2019-03-31 05:00] VITALS: BMI 25.8
[2019-03-31] MEDS: Thyroid 60 MG Tablet 90 MG PO (06:12)
[2019-03-31] MEDS: Heparin Injection (Vial) 5,000 UNIT/ML VIAL 5000 UNIT SC ×3 (06:12→21:16)
[2019-03-31 07:00] VITALS: BP 123/65; PULSE 60; RESP 12; TEMP 36.8; O2SAT 96
[2019-03-31] MEDS: Aspirin 325 MG Tablet PO (08:23)
[2019-03-31] MEDS: FLUoxetine 10 MG Capsule 30 MG PO (08:23)
[2019-03-31] MEDS: Famotidine 20 MG Tablet PO (08:23)
--- NOTE | 2019-03-31 11:27 | PCM.PN.NEU ---
Patient Problems: Active and Suspected Problems (Last Updated 03/28/19 @ 13:09 by Jesika Rosenthal, NURSING AIDE-C) Depression (Acute) Subjective: No issues overnight. Care discussed with the nursing staff. Lisinopril discontinued by the hospitalist, per patient she is not symptomatic with the dizziness anymore. Blood pressure stable - Physical Exam General: Alert HEENT: Normocephalic Neck: Supple Lungs: Normal air movement Cardiovascular: Normal S1, Normal S2 Abdomen: Bowel Sounds Present Extremities: No cyanosis Neurological: - - Cranial nerves II-XII grossly intact, Deep Tendon Reflexes 2+/4 and Symmetrical, Neuro grossly intact, Motor Exam 5/5 strength throughout - except right lower extremity -5/5. NIHSS 0 Psych/Mental Status: Normal Affect Vital Signs Temp Pulse Resp BP Pulse Ox 98.2 F 60 12 123/65 H 96 03/31/19 07:00 03/31/19 07:00 03/31/19 07:00 03/31/19 07:00 03/31/19 07:00 Oxygen Delivery Method Room Air Weight: 63.7 kg Body Mass Index (BMI) 25.8 Orthostatic Vital Signs Start: 03/29/19 09:44 Freq: Status: Active Protocol: Activity Type Activity Date Activity User E-Sign Co-Sign Detail Recorded Client Recorded Date Recorded By Document 03/30/19 14:00 BL [id number] 03/30/19 14:54 BL 03/30/19 14:00 Orthostatic Vitals Standing -Blood Pressure (90/60-120/80) 100/52 L -Extremity Use Right Arm -Pulse Rate (60-100) 77 Sitting -Blood Pressure (90/60-120/80) 133/78 H -Extremity Use Right Arm -Pulse Rate (60-100) 63 Lying -Blood Pressure (90/60-120/80) 132/67 H -Extremity Use Right Arm -Pulse Rate (60-100) 55 L Intake and Output for Last 24 Hours 03/29/19 03/30/19 03/31/19 23:59 23:59 23:59 Intake Total 180 / 180 960 / 960 360 / 360 Output Total 400 / 400 Balance 180 / 180 560 / 560 360 / 360 Medical Necessity - Tobacco Use Smoking Status: Former smoker Tobacco Use: Non-smoker Assessment/Plan All Active Problems (Last Updated 03/28/19 @ 13:09 by Jesika Rosenthal, NURSING AIDE-C) Benign paroxysmal positional vertigo (Acute) Vertigo (Acute) Depression (Acute) The patient is a 64 year old F with PMH of hypothyroidism and depression. Admitted to [facility] on 03/27/2019 with debility secondary to Right cerebellar infarct for greater of 3 hours of therapy daily with a goal of returning back home at or near her prior level of functional dependence. On 03/23/2019 patient presented to [place] ED with symptoms of vertigo and nausea, Natty maneuver performed, which resolved patient's vertigo and nystagmus. Then patient had a abrupt onset headache, nausea and vomiting with mild slurred speech. Patient was admitted to [facility]. Testing obtained was Brain CT; subtle chronic changes of microvascular ischemia versus demyelinating process. Brain MRI; acute right cerebellar infarct measuring 4 x 1.7 cm of the inferior right cerebellar hemisphere, minimal mass effect on the brain stem. Head MRA; Occlusion of the right vertebral artery. Neck MRA; Occlusion of the right vertebral artery. EKG: Normal sinus rhythm, Minimal voltage criteria for LVH, may be normal variant, Nonspecific ST abnormality, Prolonged QT. TPA was not indicated. On 03/24/2019, patient was transferred to [facility] and patient was admitted to the Neurovascular service to Dr. Schwarz. On 03/25/2019 LDL 123, HgbA1c 5.2%. Patient was started on statin, edmundo and asa. 03/25/2019 CT angio of brain/neck; Occlusion of the right vertebral artery, with reconstitution intracranially at the V4 segment. 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 TTE was ordered at [facility], but no results available for review. NIHSS 0 on 03/25/2019. [facility] referred [facility] patient [facility] to increase strength and mobility. 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 Plan - PT for mobility - OT for ADLs - ST for cognitive - Analgesics as needed - Right cerebellar infarct on asa, statin and edmundo. 30 day event monitor at discharge - Depression on prozac - Hypothyroidism on Jag - Hyperlipidemia LDL 123 on statin - Thrush on nystatin - GI/DVT prophylaxis on pepcid/Heparin SQ, thigh high teds - OH +ve- increase fluid intake, stopped lisinopril, patient denies any further symptoms - Fall precautions - Bowel protocol - Further medical management per hospitalist recommendation, hospitalist consult - F/U with PCP and neurologist and 30 day event monitor
--- NOTE | 2019-03-31 11:30 | PN.NEURO_ITS ---
Patient Problems: Active and Suspected Problems (Last Updated 03/28/19 @ 13:09 by Jesika Rosenthal, WOOD FUEL PELLETIZER-C) Depression (Acute) Subjective: No issues overnight. Care discussed with the nursing staff. Lisinopril discontinued by the hospitalist, per patient she is not symptomatic with the dizziness anymore. Blood pressure stable - Physical Exam General: Alert HEENT: Normocephalic Neck: Supple Lungs: Normal air movement Cardiovascular: Normal S1, Normal S2 Abdomen: Bowel Sounds Present Extremities: No cyanosis Neurological: - - Cranial nerves II-XII grossly intact, Deep Tendon Reflexes 2+/4 and Symmetrical, Neuro grossly intact, Motor Exam 5/5 strength throughout - except right lower extremity -5/5. NIHSS 0 Psych/Mental Status: Normal Affect Vital Signs Temp Pulse Resp BP Pulse Ox 98.2 F 60 12 123/65 H 96 03/31/19 07:00 03/31/19 07:00 03/31/19 07:00 03/31/19 07:00 03/31/19 07:00 Oxygen Delivery Method Room Air Weight: 63.7 kg Body Mass Index (BMI) 25.8 Orthostatic Vital Signs Start: 03/29/19 09:44 Freq: Status: Active Protocol: Activity Type Activity Date Activity User E-Sign Co-Sign Detail Recorded Client Recorded Date Recorded By Document 03/30/19 14:00 BL [id number] 03/30/19 14:54 BL 03/30/19 14:00 Orthostatic Vitals Standing -Blood Pressure (90/60-120/80) 100/52 L -Extremity Use Right Arm -Pulse Rate (60-100) 77 Sitting -Blood Pressure (90/60-120/80) 133/78 H -Extremity Use Right Arm -Pulse Rate (60-100) 63 Lying -Blood Pressure (90/60-120/80) 132/67 H -Extremity Use Right Arm -Pulse Rate (60-100) 55 L Intake and Output for Last 24 Hours 03/29/19 03/30/19 03/31/19 23:59 23:59 23:59 Intake Total 180 / 180 960 / 960 360 / 360 Output Total 400 / 400 Balance 180 / 180 560 / 560 360 / 360 Medical Necessity - Tobacco Use Smoking Status: Former smoker Tobacco Use: Non-smoker Assessment/Plan All Active Problems (Last Updated 03/28/19 @ 13:09 by Jesika Rosenthal, WOOD FUEL PELLETIZER-C) Benign paroxysmal positional vertigo (Acute) Vertigo (Acute) Depression (Acute) The patient is a 64 year old F with PMH of hypothyroidism and depression. A dmitted to [facility] on 03/27/2019 with debility secondary to Right cerebellar infarct for greater of 3 hours of therapy daily with a goal of returning back home at or near her prior level of functional dependence. On 03/23/2019 patient presented to [place] ED with symptoms of vertigo and nausea, Natty maneuver performed, which resolved patient's vertigo and nystagmus. Then patient had a abrupt onset headache, nausea and vomiting with mild slurred speech. Patient was admitted to [facility]. Testing obtained was Brain CT; subtle chronic changes of microvascular ischemia versus demyelinating process. Brain MRI; acute right cerebellar infarct measuring 4 x 1.7 cm of the inferior right cerebellar hemisphere, minimal mass effect on the brain stem. Head MRA; Occlusion of the right vertebral artery. Neck MRA; Occlusion of the right vertebral artery. EKG: Normal sinus rhythm, Minimal voltage criteria for LVH, may be normal variant, Nonspecific ST abnormality, Prolonged QT. TPA was not indicated. On 03/24/2019, patient was transferred to [facility] and patient was admitted to the Neurovascular service to Dr. Schwarz. On 03/25/2019 LDL 123, HgbA1c 5.2%. Patient was started on statin, edmundo and asa. 03/25/2019 CT angio of brain/neck; Occlusion of the right vertebral artery, with reconstitution intracranially at the V4 segment. 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 TTE was ordered at [facility], but no results available for review. NIHSS 0 on 03/25/2019. [facility] referred [facility] to [facility] to increase strength and mobility. 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 Plan - PT for mobility - OT for ADLs - ST for cognitive - Analgesics as needed - Right cerebellar infarct on asa, statin and edmundo. 30 day event monitor at discharge - Depression on prozac - Hypothyroidism on Jag - Hyperlipidemia LDL 123 on statin - Thrush on nystatin - GI/DVT prophylaxis on pepcid/Heparin SQ, thigh high teds - OH +ve- increase fluid intake, stopped lisinopril, patient denies any further symptoms - Fall precautions - Bowel protocol - Further medical management per hospitalist recommendation, hospitalist consult - F/U with PCP and neurologist and 30 day event monitor
[2019-03-31 14:47] VITALS: BMI 25.8
[2019-03-31 19:08] VITALS: BP 125/64; PULSE 65; RESP 16; TEMP 36.9; O2SAT 95
[2019-03-31 21:00] VITALS: BMI 25.8
[2019-03-31] MEDS: Atorvastatin Calcium 80 MG Tablet PO (21:15)
[2019-04-01] MEDS: Heparin Injection (Vial) 5,000 UNIT/ML VIAL 5000 UNIT SC ×3 (05:42→21:36)
[2019-04-01] MEDS: Thyroid 60 MG Tablet 90 MG PO (05:42)
[2019-04-01 06:59] VITALS: BP 127/67; PULSE 61; RESP 16; TEMP 36.8; O2SAT 95
[2019-04-01] MEDS: FLUoxetine 10 MG Capsule 30 MG PO (07:36)
[2019-04-01] MEDS: Famotidine 20 MG Tablet PO (07:37)
[2019-04-01] MEDS: Aspirin 325 MG Tablet PO (07:38)
[2019-04-01 15:34] VITALS: BMI 25.8
[2019-04-01 19:49] VITALS: BP 129/66; PULSE 73; RESP 16; TEMP 36.8; O2SAT 94
[2019-04-01 20:30] VITALS: BP 128/74
[2019-04-01] MEDS: Atorvastatin Calcium 80 MG Tablet PO (21:36)
[2019-04-01 22:00] VITALS: RESP 18; O2SAT 95; BMI 25.8
[2019-04-02] MEDS: Thyroid 60 MG Tablet 90 MG PO (05:07)
[2019-04-02] MEDS: Heparin Injection (Vial) 5,000 UNIT/ML VIAL 5000 UNIT SC ×3 (05:09→21:59)
[2019-04-02 05:55] VITALS: BP 119/69
[2019-04-02 06:16] VITALS: BP 124/80; PULSE 64; RESP 18; TEMP 36.6; O2SAT 98
[2019-04-02] MEDS: FLUoxetine 10 MG Capsule 30 MG PO (07:50)
[2019-04-02] MEDS: Aspirin 325 MG Tablet PO (07:51)
[2019-04-02] MEDS: Famotidine 20 MG Tablet PO (07:51)
[2019-04-02] MEDS: Senna/Docusate Sodium 1 Tablet 2 TABLET PO (07:52)
--- NOTE | 2019-04-02 09:28 | PCM.PN.NEU ---
Patient Problems: Active and Suspected Problems (Last Updated 03/28/19 @ 13:09 by Jesika Rosenthal, SHIRIN-C) Depression (Acute) Subjective: Per nursing no issues overnight. Per patient, tolerating therapies well and has dizziness with fast movements, but resolved quickly. Team meeting held today per PT ambulating with cane and walker still has some instability and LOB with self corrections. Per OT, standby assist with ADLs and has minor LOB with gathering materials for ADLs. Per SW, awaiting insurance approval for continuation of stay. - Physical Exam General: Alert, Oriented x3, Cooperative HEENT: Atraumatic, PERRLA Oral: Moist Mucosa Neck: Supple, No JVD Lungs: Clear to auscultation, Normal air movement Cardiovascular: Regular rate, Regular Rhythm Abdomen: Soft, Non Tender Extremities: No clubbing, No cyanosis, No edema Musculoskeletal: No Tenderness to Palpation of Joints or Extremities Neurological: - - Cranial nerves II-XII grossly intact, Deep Tendon Reflexes 2+/4 and Symmetrical, Neuro grossly intact, Motor Exam 5/5 strength throughout - except right lower extremity 4/5. NIHSS 0 Psych/Mental Status: Normal Affect, Appropriate, Alert and oriented to time, place, person, mood and affect Vital Signs Temp Pulse Resp BP Pulse Ox 97.9 F 64 18 124/80 H 98 04/02/19 06:16 04/02/19 06:16 04/02/19 06:16 04/02/19 06:16 04/02/19 06:16 Oxygen Delivery Method Room Air Weight: 63.7 kg Body Mass Index (BMI) 25.8 Orthostatic Vital Signs Start: 03/29/19 09:44 Freq: Status: Active Protocol: Activity Type Activity Date Activity User E-Sign Co-Sign Detail Recorded Client Recorded Date Recorded By Document 03/30/19 14:00 BL [id number] 03/30/19 14:54 BL 03/30/19 14:00 Orthostatic Vitals Standing -Blood Pressure (90/60-120/80) 100/52 L -Extremity Use Right Arm -Pulse Rate (60-100) 77 Sitting -Blood Pressure (90/60-120/80) 133/78 H -Extremity Use Right Arm -Pulse Rate (60-100) 63 Lying -Blood Pressure (90/60-120/80) 132/67 H -Extremity Use Right Arm -Pulse Rate (60-100) 55 L Intake and Output for Last 24 Hours 03/31/19 04/01/19 04/02/19 23:59 23:59 23:59 Intake Total 720 / 720 1080 / 1080 Balance 720 / 720 1080 / 1080 Medical Necessity - Tobacco Use Smoking Status: Former smoker Tobacco Use: Non-smoker Assessment/Plan All Active Problems (Last Updated 03/28/19 @ 13:09 by Jesika Rosenthal, NEWSPAPER DELIVERY DRIVER-C) Benign paroxysmal positional vertigo (Acute) Vertigo (Acute) Depression (Acute) The patient is a 64 year old F with PMH of hypothyroidism and depression. Admitted to [facility] on 03/27/2019 with debility secondary to Right cerebellar infarct for greater of 3 hours of therapy daily with a goal of returning back home at or near her prior level of functional dependence. On 03/23/2019 patient presented to [place] ED with symptoms of vertigo and nausea, Natty maneuver performed, which resolved patient's vertigo and nystagmus. Then patient had a abrupt onset headache, nausea and vomiting with mild slurred speech. Patient was admitted to [facility]. Testing obtained was Brain CT; subtle chronic changes of microvascular ischemia versus demyelinating process. Brain MRI; acute right cerebellar infarct measuring 4 x 1.7 cm of the inferior right cerebellar hemisphere, minimal mass effect on the brain stem. Head MRA; Occlusion of the right vertebral artery. Neck MRA; Occlusion of the right vertebral artery. EKG: Normal sinus rhythm, Minimal voltage criteria for LVH, may be normal variant, Nonspecific ST abnormality, Prolonged QT. TPA was not indicated. On 03/24/2019, patient was transferred to [facility] and patient was admitted to the Neurovascular service to Dr. Schwarz. On 03/25/2019 LDL 123, HgbA1c 5.2%. Patient was started on statin, edmundo and asa. 03/25/2019 CT angio of brain/neck; Occlusion of the right vertebral artery, with reconstitution intracranially at the V4 segment. 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 TTE was ordered at [facility], but no results available for review. NIHSS 0 on 03/25/2019. [facility] referred to patient to [facility] to increase strength and mobility. 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 Plan - PT for mobility - OT for ADLs - ST for cognitive - Analgesics as needed - Right cerebellar infarct on asa, statin and edmundo. 30 day event monitor at discharge - Depression on prozac - Hypothyroidism on Jag - Hyperlipidemia LDL 123 on statin - Thrush start nystatin - GI/DVT prophylaxis on pepcid/Heparin SQ, thigh high teds - Vertigo improving - Fall precautions - Bowel protocol - Further medical management per hospitalist recommendation, hospitalist consult - F/U with PCP and neurologist and 30 day event monitor
--- NOTE | 2019-04-02 09:32 | PN.NEURO_ITS ---
Patient Problems: Active and Suspected Problems (Last Updated 03/28/19 @ 13:09 by Jesika Rosenthal, SHIRIN-C) Depression (Acute) Subjective: Per nursing no issues overnight. Per patient, tolerating therapies well and has dizziness with fast movements, but resolved quickly. Team meeting held today per PT ambulating with cane and walker still has some instability and LOB with self corrections. Per OT, standby assist with ADLs and has minor LOB with gathering materials for ADLs. Per SW, awaiting insurance approval for continuation of stay. - Physical Exam General: Alert, Oriented x3, Cooperative HEENT: Atraumatic, PERRLA Oral: Moist Mucosa Neck: Supple, No JVD Lungs: Clear to auscultation, Normal air movement Cardiovascular: Regular rate, Regular Rhythm Abdomen: Soft, Non Tender Extremities: No clubbing, No cyanosis, No edema Musculoskeletal: No Tenderness to Palpation of Joints or Extremities Neurological: - - Cranial nerves II-XII grossly intact, Deep Tendon Reflexes 2+/4 and Symmetrical, Neuro grossly intact, Motor Exam 5/5 strength throughout - except right lower extremity 4/5. NIHSS 0 Psych/Mental Status: Normal Affect, Appropriate, Alert and oriented to time, place, person, mood and affect Vital Signs Temp Pulse Resp BP Pulse Ox 97.9 F 64 18 124/80 H 98 04/02/19 06:16 04/02/19 06:16 04/02/19 06:16 04/02/19 06:16 04/02/19 06:16 Oxygen Delivery Method Room Air Weight: 63.7 kg Body Mass Index (BMI) 25.8 Orthostatic Vital Signs Start: 03/29/19 09:44 Freq: Status: Active Protocol: Activity Type Activity Date Activity User E-Sign Co-Sign Detail Recorded Client Recorded Date Recorded By Document 03/30/19 14:00 BL [id number] 03/30/19 14:54 BL 03/30/19 14:00 Orthostatic Vitals Standing -Blood Pressure (90/60-120/80) 100/52 L -Extremity Use Right Arm -Pulse Rate (60-100) 77 Sitting -Blood Pressure (90/60-120/80) 133/78 H -Extremity Use Right Arm -Pulse Rate (60-100) 63 Lying -Blood Pressure (90/60-120/80) 132/67 H -Extremity Use Right Arm -Pulse Rate (60-100) 55 L Intake and Output for Last 24 Hours 03/31/19 04/01/19 04/02/19 23:59 23:59 23:59 Intake Total 720 / 720 1080 / 1080 Balance 720 / 720 1080 / 1080 Medical Necessity - Tobacco Use Smoking Status: Former smoker Tobacco Use: Non-smoker Assessment/Plan All Active Problems (Last Updated 03/28/19 @ 13:09 by Jesika Rosenthal, GLOBAL CONSUMER SECTOR VICE PRESIDENT-C) Benign paroxysmal positional vertigo (Acute) Vertigo (Acute) Depression (Acute) The patient is a 64 year old F with PMH of hypothyroidism and depression. A dmitted to [facility] on 03/27/2019 with debility secondary to Right cerebellar infarct for greater of 3 hours of therapy daily with a goal of returning back home at or near her prior level of functional dependence. On 03/23/2019 patient presented to [place] ED with symptoms of vertigo and nausea, Natty maneuver performed, which resolved patient's vertigo and nystagmus. Then patient had a abrupt onset headache, nausea and vomiting with mild slurred speech. Patient was admitted to [facility]. Testing obtained was Brain CT; subtle chronic changes of microvascular ischemia versus demyelinating process. Brain MRI; acute right cerebellar infarct measuring 4 x 1.7 cm of the inferior right cerebellar hemisphere, minimal mass effect on the brain stem. Head MRA; Occlusion of the right vertebral artery. Neck MRA; Occlusion of the right vertebral artery. EKG: Normal sinus rhythm, Minimal voltage criteria for LVH, may be normal variant, Nonspecific ST abnormality, Prolonged QT. TPA was not indicated. On 03/24/2019, patient was transferred to [facility] and patient was admitted to the Neurovascular service to Dr. Schwarz. On 03/25/2019 LDL 123, HgbA1c 5.2%. Patient was started on statin, edmundo and asa. 03/25/2019 CT angio of brain/neck; Occlusion of the right vertebral artery, with reconstitution intracranially at the V4 segment. 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 TTE was ordered at [facility], but no results available for review. NIHSS 0 on 03/25/2019. [facility] to increase strength and mobility. 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 Plan - PT for mobility - OT for ADLs - ST for cognitive - Analgesics as needed - Right cerebellar infarct on asa, statin and edmundo. 30 day event monitor at discharge - Depression on prozac - Hypothyroidism on Jag - Hyperlipidemia LDL 123 on statin - Thrush start nystatin - GI/DVT prophylaxis on pepcid/Heparin SQ, thigh high teds - Vertigo improving - Fall precautions - Bowel protocol - Further medical management per hospitalist recommendation, hospitalist consult - F/U with PCP and neurologist and 30 day event monitor
[2019-04-02 12:39] VITALS: BMI 25.8
--- NOTE | 2019-04-02 16:38 | CASEMGMT ---
Social Work: Team meeting held in patient's room with patient's daughter also present. Patient is improving functionally but still has occasional LOB. No D/C date at this time. Patient aware that clinical update was sent to insurance on Monday and SW has not received continued stay determination back as of yet. SW to follow to assist as needed with D/C planning. ALEKSANDER Hussein
--- NOTE | 2019-04-02 16:58 | CASEMGMT ---
Insurance: Cyndi from [employer] is requesting clinical update today. Clinicals faxed. Auth # [id number].
[2019-04-02 21:10] VITALS: BP 123/85; PULSE 87; RESP 16; TEMP 36.8; O2SAT 96
[2019-04-02 21:55] VITALS: PULSE 87; RESP 16; O2SAT 96; BMI 25.8
[2019-04-02] MEDS: Atorvastatin Calcium 80 MG Tablet PO (21:59)
--- NOTE | 2019-04-03 03:29 | NURSING ---
Reviewed and agree with CORE DROPPER documentation and FIMs charting.
[2019-04-03] MEDS: Thyroid 60 MG Tablet 90 MG PO (05:39)
[2019-04-03] MEDS: Heparin Injection (Vial) 5,000 UNIT/ML VIAL 5000 UNIT SC ×3 (05:41→20:01)
[2019-04-03 07:14] VITALS: BP 116/66; PULSE 98; RESP 18; TEMP 36.6; O2SAT 92
[2019-04-03] MEDS: Famotidine 20 MG Tablet PO (07:45)
[2019-04-03] MEDS: FLUoxetine 10 MG Capsule 30 MG PO (07:45)
[2019-04-03] MEDS: Aspirin 325 MG Tablet PO (07:45)
[2019-04-03 11:52] VITALS: BMI 25.8
--- NOTE | 2019-04-03 12:51 | PCM.PN.NEU ---
Patient Problems: Active and Suspected Problems (Last Updated 03/28/19 @ 13:09 by Jesika Rosenthal, SHIRIN-C) Depression (Acute) Subjective: Per nursing no issues overnight. Per patient dizziness resolved and is ambulating with therapy with no LOB. Denies further questions or concerns. - Physical Exam General: Alert, Oriented x3, Cooperative HEENT: Atraumatic, PERRLA Oral: Moist Mucosa Neck: Supple, No JVD Lungs: Clear to auscultation, Normal air movement Cardiovascular: Regular rate, Regular Rhythm Abdomen: Bowel Sounds Present, Soft, Non Tender Extremities: No clubbing, No cyanosis, No edema Musculoskeletal: No Tenderness to Palpation of Joints or Extremities Neurological: Cranial nerves II-XII grossly intact, Deep Tendon Reflexes 2+/4 and Symmetrical, Neuro grossly intact, Motor Exam 5/5 strength throughout - Except RLE 4/5 strength, - - NIHSS 0 Psych/Mental Status: Normal Affect, Appropriate, Alert and oriented to time, place, person, mood and affect Vital Signs Temp Pulse Resp BP Pulse Ox 97.8 F 98 18 116/66 92 04/03/19 07:14 04/03/19 07:14 04/03/19 07:14 04/03/19 07:14 04/03/19 07:14 Oxygen Delivery Method Room Air Weight: 63.5 kg Body Mass Index (BMI) 25.8 Orthostatic Vital Signs Start: 03/29/19 09:44 Freq: Status: Active Protocol: Activity Type Activity Date Activity User E-Sign Co-Sign Detail Recorded Client Recorded Date Recorded By Document 03/30/19 14:00 BL [id number] 03/30/19 14:54 BL 03/30/19 14:00 Orthostatic Vitals Standing -Blood Pressure (90/60-120/80) 100/52 L -Extremity Use Right Arm -Pulse Rate (60-100) 77 Sitting -Blood Pressure (90/60-120/80) 133/78 H -Extremity Use Right Arm -Pulse Rate (60-100) 63 Lying -Blood Pressure (90/60-120/80) 132/67 H -Extremity Use Right Arm -Pulse Rate (60-100) 55 L Intake and Output for Last 24 Hours 04/01/19 04/02/19 04/03/19 23:59 23:59 23:59 Intake Total 1080 / 1080 Balance 1080 / 1080 Medical Necessity - Tobacco Use Smoking Status: Former smoker Tobacco Use: Non-smoker Assessment/Plan All Active Problems (Last Updated 03/28/19 @ 13:09 by INGE Higgins) Benign paroxysmal positional vertigo (Acute) Vertigo (Acute) Depression (Acute) The patient is a 64 year old F with PMH of hypothyroidism and depression. Admitted to [facility] on 03/27/2019 with debility secondary to Right cerebellar infarct for greater of 3 hours of therapy daily with a goal of returning back home at or near her prior level of functional dependence. On 03/23/2019 patient presented to [place] ED with symptoms of vertigo and nausea, Natty maneuver performed, which resolved patient's vertigo and nystagmus. Then patient had a abrupt onset headache, nausea and vomiting with mild slurred speech. Patient was admitted to [facility]. Testing obtained was Brain CT; subtle chronic changes of microvascular ischemia versus demyelinating process. Brain MRI; acute right cerebellar infarct measuring 4 x 1.7 cm of the inferior right cerebellar hemisphere, minimal mass effect on the brain stem. Head MRA; Occlusion of the right vertebral artery. Neck MRA; Occlusion of the right vertebral artery. EKG: Normal sinus rhythm, Minimal voltage criteria for LVH, may be normal variant, Nonspecific ST abnormality, Prolonged QT. TPA was not indicated. On 03/24/2019, patient was transferred to [facility] and patient was admitted to the Neurovascular service to Dr. Schwarz. On 03/25/2019 LDL 123, HgbA1c 5.2%. Patient was started on statin, edmundo and asa. 03/25/2019 CT angio of brain/neck; Occlusion of the right vertebral artery, with reconstitution intracranially at the V4 segment. 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 TTE was ordered at [facility], but no results available for review. NIHSS 0 on 03/25/2019. [facility] to increase strength and mobility. 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 Plan - PT for mobility - OT for ADLs - ST for cognitive - Analgesics as needed - Right cerebellar infarct on asa, statin and edmundo. 30 day event monitor at discharge - Depression on prozac - Hypothyroidism on Jag - Hyperlipidemia LDL 123 on statin - Thrush start nystatin - GI/DVT prophylaxis on pepcid/Heparin SQ, thigh high teds - Vertigo improving - Fall precautions - Bowel protocol - Further medical management per hospitalist recommendation, hospitalist consult - F/U with PCP and neurologist and 30 day event monitor
--- NOTE | 2019-04-03 12:56 | PN.NEURO_ITS ---
Patient Problems: Active and Suspected Problems (Last Updated 03/28/19 @ 13:09 by Jesika Rosenthal, SHIRIN-C) Depression (Acute) Subjective: Per nursing no issues overnight. Per patient dizziness resolved and is ambulating with therapy with no LOB. Denies further questions or concerns. - Physical Exam General: Alert, Oriented x3, Cooperative HEENT: Atraumatic, PERRLA Oral: Moist Mucosa Neck: Supple, No JVD Lungs: Clear to auscultation, Normal air movement Cardiovascular: Regular rate, Regular Rhythm Abdomen: Bowel Sounds Present, Soft, Non Tender Extremities: No clubbing, No cyanosis, No edema Musculoskeletal: No Tenderness to Palpation of Joints or Extremities Neurological: Cranial nerves II-XII grossly intact, Deep Tendon Reflexes 2+/4 and Symmetrical, Neuro grossly intact, Motor Exam 5/5 strength throughout - Except RLE 4/5 strength, - - NIHSS 0 Psych/Mental Status: Normal Affect, Appropriate, Alert and oriented to time, place, person, mood and affect Vital Signs Temp Pulse Resp BP Pulse Ox 97.8 F 98 18 116/66 92 04/03/19 07:14 04/03/19 07:14 04/03/19 07:14 04/03/19 07:14 04/03/19 07:14 Oxygen Delivery Method Room Air Weight: 63.5 kg Body Mass Index (BMI) 25.8 Orthostatic Vital Signs Start: 03/29/19 09:44 Freq: Status: Active Protocol: Activity Type Activity Date Activity User E-Sign Co-Sign Detail Recorded Client Recorded Date Recorded By Document 03/30/19 14:00 BL [id number] 03/30/19 14:54 BL 03/30/19 14:00 Orthostatic Vitals Standing -Blood Pressure (90/60-120/80) 100/52 L -Extremity Use Right Arm -Pulse Rate (60-100) 77 Sitting -Blood Pressure (90/60-120/80) 133/78 H -Extremity Use Right Arm -Pulse Rate (60-100) 63 Lying -Blood Pressure (90/60-120/80) 132/67 H -Extremity Use Right Arm -Pulse Rate (60-100) 55 L Intake and Output for Last 24 Hours 04/01/19 04/02/19 04/03/19 23:59 23:59 23:59 Intake Total 1080 / 1080 Balance 1080 / 1080 Medical Necessity - Tobacco Use Smoking Status: Former smoker Tobacco Use: Non-smoker Assessment/Plan All Active Problems (Last Updated 03/28/19 @ 13:09 by INGE Higgins) Benign paroxysmal positional vertigo (Acute) Vertigo (Acute) Depression (Acute) The patient is a 64 year old F with PMH of hypothyroidism and depression. A dmitted to [facility] on 03/27/2019 with debility secondary to Right cerebellar infarct for greater of 3 hours of therapy daily with a goal of returning back home at or near her prior level of functional dependence. On 03/23/2019 patient presented to [place] ED with symptoms of vertigo and nausea, Natty maneuver performed, which resolved patient's vertigo and nystagmus. Then patient had a abrupt onset headache, nausea and vomiting with mild slurred speech. Patient was admitted to [facility]. Testing obtained was Brain CT; subtle chronic changes of microvascular ischemia versus demyelinating process. Brain MRI; acute right cerebellar infarct measuring 4 x 1.7 cm of the inferior right cerebellar hemisphere, minimal mass effect on the brain stem. Head MRA; Occlusion of the right vertebral artery. Neck MRA; Occlusion of the right vertebral artery. EKG: Normal sinus rhythm, Minimal voltage criteria for LVH, may be normal variant, Nonspecific ST abnormality, Prolonged QT. TPA was not indicated. On 03/24/2019, patient was transferred to [facility] and patient was admitted to the Neurovascular service to Dr. Schwarz. On 03/25/2019 LDL 123, HgbA1c 5.2%. Patient was started on statin, edmundo and asa. 03/25/2019 CT angio of brain/neck; Occlusion of the right vertebral artery, with reconstitution intracranially at the V4 segment. 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 TTE was ordered at [facility], but no results available for review. NIHSS 0 on 03/25/2019. [facility] referred [facility] to [facility] to increase strength and mobility. 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 Plan - PT for mobility - OT for ADLs - ST for cognitive - Analgesics as needed - Right cerebellar infarct on asa, statin and edmundo. 30 day event monitor at discharge - Depression on prozac - Hypothyroidism on Jag - Hyperlipidemia LDL 123 on statin - Thrush start nystatin - GI/DVT prophylaxis on pepcid/Heparin SQ, thigh high teds - Vertigo improving - Fall precautions - Bowel protocol - Further medical management per hospitalist recommendation, hospitalist consult - F/U with PCP and neurologist and 30 day event monitor
--- NOTE | 2019-04-03 17:04 | CASEMGMT ---
Social Work/ Insurance Per insurance, LCD 04/03/19 with update due 04/04 if more days are required. Auth# [id number] SW met with pt and explained above. Pt stating she is feeling like she is ready for d/c and does not feel additional days are needed at this time and she would like out patient therapy. Will not request additional days from insurance. D/C is planned for tomorrow 04/04/19. Pt aware that SW will speak with team in the morning and discuss d/c recommendations. NIALL Sarmiento notified. CITLALLI Newberry
[2019-04-03 19:55] VITALS: BP 126/65; PULSE 75; RESP 16; TEMP 36.8; O2SAT 96
[2019-04-03] MEDS: Atorvastatin Calcium 80 MG Tablet PO (20:03)
[2019-04-03 21:27] VITALS: BMI 25.8
[2019-04-04] MEDS: Thyroid 60 MG Tablet 90 MG PO (05:31)
[2019-04-04] MEDS: Heparin Injection (Vial) 5,000 UNIT/ML VIAL 5000 UNIT SC ×2 (05:31→14:33)
[2019-04-04 07:00] VITALS: BP 135/75; PULSE 71; RESP 16; TEMP 36.6; O2SAT 97
[2019-04-04] MEDS: Aspirin 325 MG Tablet PO (07:52)
[2019-04-04] MEDS: Famotidine 20 MG Tablet PO (07:52)
[2019-04-04] MEDS: FLUoxetine 10 MG Capsule 30 MG PO (07:52)
--- NOTE | 2019-04-04 10:09 | PCM.DC ---
- Discharge Diagnoses Current Active Problems: Current Active and Chronic Problems (Last Updated 03/28/19 @ 13:09 by INGE Higgins) Depression (Acute) Hypothyroidism (Chronic) You will use the following diet at home:: Regular Your liquids should be the consistency of: Regular/Thin Discharge Activity: Return to Normal Activity, May Not Drive, May Shower, Use Walker Weight Bearing Status: Weight bearing as tolerated Call your doctor if you observe: Fever of 101 or Higher, Coldness, Increased Pain, Numbness or Tingling, Change in Color, Inability to urinate, Inability to have a bowel movement, Shortness of breath, Dizziness, Fainting spells, Swelling in the ankles, Chest pain, Prolonged hiccoughing, Increased palpitations (irregular heartbeat), Calf discomfort, Uncontrolled pain Additional Instructions: 30 day event monitor placed on 04/04/2019 Dr. Castillo to follow Allergies/Adverse Reactions: Allergies morphine Allergy (Mild, Verified 01/24/19 16:00) unknown sulfamethoxazole [From Bactrim] Allergy (Mild, Verified 01/24/19 16:00) unknown tea tree Allergy (Mild, Verified 01/24/19 16:00) unknown trimethoprim [From Bactrim] Allergy (Mild, Verified 01/24/19 16:00) unknown Medications to take at Discharge Aspirin 325 mg PO DAILY@0800 tablet 04/04/19 Atorvastatin Calcium [Lipitor] 80 mg PO QHS #30 tablet 04/04/19 Fluoxetine [Prozac] 30 mg PO DAILY capsule 04/04/19 Thyroid [Sebring Thyroid] 90 mg PO DAILY@0600 tablet 04/04/19 The following prescriptions were given: Atorvastatin Calcium [Lipitor] 80 mg PO QHS #30 tablet Primary Care Physician: Hakeem Broderick, DO [Primary Care Provider] - Please follow up with your Primary Care Physician in: 2 weeks Test Results: Test results from this visit will be discussed in further detail at your follow-up appointment, if applicable. Please Follow Up With: Hakeem Broderick Please Follow Up With: Neurology Please Follow Up With: Dr. Castillo Cardiology 30 day event monitor Please Follow Up With: Outpatient PT
[2019-04-04 10:12] VITALS: BP 135/75; PULSE 71; RESP 16; TEMP 36.6; O2SAT 97
--- NOTE | 2019-04-04 10:13 | DCINST_ITS ---
- Discharge Diagnoses Current Active Problems: Current Active and Chronic Problems (Last Updated 03/28/19 @ 13:09 by INGE Higgins) Depression (Acute) Hypothyroidism (Chronic) You will use the following diet at home:: Regular Your liquids should be the consistency of: Regular/Thin Discharge Activity: Return to Normal Activity, May Not Drive, May Shower, Use Walker Weight Bearing Status: Weight bearing as tolerated Call your doctor if you observe: Fever of 101 or Higher, Coldness, Increased Pain, Numbness or Tingling, Change in Color, Inability to urinate, Inability to have a bowel movement, Shortness of breath, Dizziness, Fainting spells, Swelling in the ankles, Chest pain, Prolonged hiccoughing, Increased palpitations (irregular heartbeat), Calf discomfort, Uncontrolled pain Additional Instructions: 30 day event monitor placed on 04/04/2019 Dr. Castillo to follow Allergies/Adverse Reactions: Allergies morphine Allergy (Mild, Verified 01/24/19 16:00) unknown sulfamethoxazole [From Bactrim] Allergy (Mild, Verified 01/24/19 16:00) unknown tea tree Allergy (Mild, Verified 01/24/19 16:00) unknown trimethoprim [From Bactrim] Allergy (Mild, Verified 01/24/19 16:00) unknown Medications to take at Discharge Aspirin 325 mg PO DAILY@0800 tablet 04/04/19 Atorvastatin Calcium [Lipitor] 80 mg PO QHS #30 tablet 04/04/19 Fluoxetine [Prozac] 30 mg PO DAILY capsule 04/04/19 Thyroid [[place] Thyroid] 90 mg PO DAILY@0600 tablet 04/04/19 The following prescriptions were given: Atorvastatin Calcium [Lipitor] 80 mg PO QHS #30 tablet Primary Care Physician: Hakeem Broderick, DO [Primary Care Provider] - Please follow up with your Primary Care Physician in: 2 weeks Test Results: Test results from this visit will be discussed in further detail at your follow- up appointment, if applicable. Please Follow Up With: Hakeem Broderick Please Follow Up With: Neurology Please Follow Up With: Dr. Castillo Cardiology 30 day event monitor Please Follow Up With: Outpatient PT
--- NOTE | 2019-04-04 10:14 | PCM.RU.DC ---
Rehab Discharge Summary DATE OF ADMISSION: 03/27/19 DATE OF DISCHARGE: 04/04/2019 - Rehab Diagnosis Debility secondary to Right cerebellar infarct Patient Problems: Active and Suspected Problems (Last Updated 03/28/19 @ 13:09 by Jesika Rosenthal, PROJECT SCHEDULER-C) Depression (Acute) Subjective: Per patient ready to be discharged home, denies further needs or questions. 30 day event monitor placed today on 04/04/2019, DR. Castillo to follow. - Physical Exam General: Alert, Oriented x3, Cooperative HEENT: Atraumatic, PERRLA Oral: Moist Mucosa Neck: Supple, No JVD Lungs: Clear to auscultation, Normal air movement Cardiovascular: Regular rate, Regular Rhythm Abdomen: Bowel Sounds Present, Soft, Non Tender Extremities: No clubbing, No cyanosis, No edema Neurological: Cranial nerves II-XII grossly intact, Deep Tendon Reflexes 2+/4 and Symmetrical, Neuro grossly intact, Motor Exam 5/5 strength throughout Psych/Mental Status: Normal Affect, Appropriate, Alert and oriented to time, place, person, mood and affect Vital Signs Temp Pulse Resp BP Pulse Ox 97.9 F 71 16 135/75 H 97 04/04/19 07:00 04/04/19 07:00 04/04/19 07:00 04/04/19 07:00 04/04/19 07:00 Oxygen Delivery Method Room Air Weight: 63.5 kg Body Mass Index (BMI) 25.8 Orthostatic Vital Signs Start: 03/29/19 09:44 Freq: Status: Active Protocol: Activity Type Activity Date Activity User E-Sign Co-Sign Detail Recorded Client Recorded Date Recorded By Document 03/30/19 14:00 BL [id number] 03/30/19 14:54 BL 03/30/19 14:00 Orthostatic Vitals Standing -Blood Pressure (90/60-120/80) 100/52 L -Extremity Use Right Arm -Pulse Rate (60-100) 77 Sitting -Blood Pressure (90/60-120/80) 133/78 H -Extremity Use Right Arm -Pulse Rate (60-100) 63 Lying -Blood Pressure (90/60-120/80) 132/67 H -Extremity Use Right Arm -Pulse Rate (60-100) 55 L Intake and Output for Last 24 Hours 04/02/19 04/03/19 04/04/19 23:59 23:59 23:59 Intake Total 440 / 440 360 / 360 Balance 440 / 440 360 / 360 Discharge Diet: No Restrictions Discharge Activity: Return to Normal Activity, May Not Drive, May Shower, Use Walker Weight Bearing Status: Weight bearing as tolerated Call your doctor if you observe: Fever of 101 or Higher, Coldness, Increased Pain, Numbness or Tingling, Change in Color, Inability to urinate, Inability to have a bowel movement, Shortness of breath, Dizziness, Fainting spells, Swelling in the ankles, Chest pain, Prolonged hiccoughing, Increased palpitations (irregular heartbeat), Calf discomfort, Uncontrolled pain Home Medications: Medications to take at Discharge Aspirin 325 mg PO DAILY@0800 tablet 04/04/19 Atorvastatin Calcium [Lipitor] 80 mg PO QHS #30 tablet 04/04/19 Fluoxetine [Prozac] 30 mg PO DAILY capsule 04/04/19 Thyroid [[place] Thyroid] 90 mg PO DAILY@0600 tablet 04/04/19 Following Prescrptions Were Given to Patient: Atorvastatin Calcium [Lipitor] 80 mg PO QHS #30 tablet Primary Care Physician: Hakeem Broderick, [Primary Care Provider] - Please follow up with your Primary Care Physician in: 2 weeks Please Follow Up With: Hakeem Broderick Please Follow Up With: Neurology Please Follow Up With: Dr. Castillo Cardiology 30 day event monitor Please Follow Up With: Outpatient PT Additional Instructions: 30 day event monitor placed on 04/04/2019, Dr. Castillo to follow. Disposition: Home Patient Condition:: Stable Rehab Course The patient is a 64 year old F with PMH of hypothyroidism and depression. Admitted to [facility] on 03/27/2019 with debility secondary to Right cerebellar infarct for greater of 3 hours of therapy daily with a goal of returning back home at or near her prior level of functional dependence. On 03/23/2019 patient presented to [facility] ED with symptoms of vertigo and nausea, Natty maneuver performed, which resolved patient's vertigo and nystagmus. Then patient had a abrupt onset headache, nausea and vomiting with mild slurred speech. Patient was admitted to [facility]. Testing obtained was Brain CT; subtle chronic changes of microvascular ischemia versus demyelinating process. Brain MRI; acute right cerebellar infarct measuring 4 x 1.7 cm of the inferior right cerebellar hemisphere, minimal mass effect on the brain stem. Head MRA; Occlusion of the right vertebral artery. Neck MRA; Occlusion of the right vertebral artery. EKG: Normal sinus rhythm, Minimal voltage criteria for LVH, may be normal variant, Nonspecific ST abnormality, Prolonged QT. TPA was not indicated. On 03/24/2019, patient was transferred to [facility] and patient was admitted to the Neurovascular service to Dr. Schwarz. On 03/25/2019 LDL 123, HgbA1c 5.2%. Patient was started on statin, edmundo and asa. 03/25/2019 CT angio of brain/neck; Occlusion of the right vertebral artery, with reconstitution intracranially at the V4 segment. 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 TTE was ordered at [facility], but no results available for review. NIHSS 0 on 03/25/2019. [facility] referred to patient to [facility] to increase strength and mobility. 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 Patient's rehab course uneventful, vertigo resolved and patient has increased strength and mobility to return home. 30 day event monitor placed on 04/04/2019, Dr. Castillo to follow. Patient to F/U with Neurology, PCP, and Cardiology. Meaningful Use Info Meaningful Use Diagnoses (Choose all that apply): Ischemic CVA - CVA Therapy Assessed for PT,OT and/or ST?: Yes - Ischemic Stroke Antithrombotic order at d/c?: Yes Dx of Atrial fib/flutter?: No Statins at discharge?: Yes Primary Dx Acute Ischemic CVA?: Yes IV tPA ordered during stay?: No Reason IV t-PA not ordered: Treatment not Indicated
--- NOTE | 2019-04-04 10:20 | DS.PCM_ITS ---
Rehab Discharge Summary DATE OF ADMISSION: 03/27/19 DATE OF DISCHARGE: 04/04/2019 - Rehab Diagnosis Debility secondary to Right cerebellar infarct Patient Problems: Active and Suspected Problems (Last Updated 03/28/19 @ 13:09 by Jesika Rosenthal, CHEF UNDER-C) Depression (Acute) Subjective: Per patient ready to be discharged home, denies further needs or questions. 30 day event monitor placed today on 04/04/2019, DR. Castillo to follow. - Physical Exam General: Alert, Oriented x3, Cooperative HEENT: Atraumatic, PERRLA Oral: Moist Mucosa Neck: Supple, No JVD Lungs: Clear to auscultation, Normal air movement Cardiovascular: Regular rate, Regular Rhythm Abdomen: Bowel Sounds Present, Soft, Non Tender Extremities: No clubbing, No cyanosis, No edema Neurological: Cranial nerves II-XII grossly intact, Deep Tendon Reflexes 2+/4 and Symmetrical, Neuro grossly intact, Motor Exam 5/5 strength throughout Psych/Mental Status: Normal Affect, Appropriate, Alert and oriented to time, place, person, mood and affect Vital Signs Temp Pulse Resp BP Pulse Ox 97.9 F 71 16 135/75 H 97 04/04/19 07:00 04/04/19 07:00 04/04/19 07:00 04/04/19 07:00 04/04/19 07:00 Oxygen Delivery Method Room Air Weight: 63.5 kg Body Mass Index (BMI) 25.8 Orthostatic Vital Signs Start: 03/29/19 09:44 Freq: Status: Active Protocol: Activity Type Activity Date Activity User E-Sign Co-Sign Detail Recorded Client Recorded Date Recorded By Document 03/30/19 14:00 BL [id number] 03/30/19 14:54 BL 03/30/19 14:00 Orthostatic Vitals Standing -Blood Pressure (90/60-120/80) 100/52 L -Extremity Use Right Arm -Pulse Rate (60-100) 77 Sitting -Blood Pressure (90/60-120/80) 133/78 H -Extremity Use Right Arm -Pulse Rate (60-100) 63 Lying -Blood Pressure (90/60-120/80) 132/67 H -Extremity Use Right Arm -Pulse Rate (60-100) 55 L Intake and Output for Last 24 Hours 04/02/19 04/03/19 04/04/19 23:59 23:59 23:59 Intake Total 440 / 440 360 / 360 Balance 440 / 440 360 / 360 Discharge Diet: No Restrictions Discharge Activity: Return to Normal Activity, May Not Drive, May Shower, Use Walker Weight Bearing Status: Weight bearing as tolerated Call your doctor if you observe: Fever of 101 or Higher, Coldness, Increased Pain, Numbness or Tingling, Change in Color, Inability to urinate, Inability to have a bowel movement, Shortness of breath, Dizziness, Fainting spells, Swelling in the ankles, Chest pain, Prolonged hiccoughing, Increased palpitations (irregular heartbeat), Calf discomfort, Uncontrolled pain Home Medications: Medications to take at Discharge Aspirin 325 mg PO DAILY@0800 tablet 04/04/19 Atorvastatin Calcium [Lipitor] 80 mg PO QHS #30 tablet 04/04/19 Fluoxetine [Prozac] 30 mg PO DAILY capsule 04/04/19 Thyroid [[place] Thyroid] 90 mg PO DAILY@0600 tablet 04/04/19 Following Prescrptions Were Given to Patient: Atorvastatin Calcium [Lipitor] 80 mg PO QHS #30 tablet Primary Care Physician: Hakeem Broderick, [Primary Care Provider] - Please follow up with your Primary Care Physician in: 2 weeks Please Follow Up With: Hakeem Broderick Please Follow Up With: Neurology Please Follow Up With: Dr. Castillo Cardiology 30 day event monitor Please Follow Up With: Outpatient PT Additional Instructions: 30 day event monitor placed on 04/04/2019, Dr. Castillo to follow. Disposition: Home Patient Condition:: Stable Rehab Course The patient is a 64 year old F with PMH of hypothyroidism and depression. A dmitted to [facility] on 03/27/2019 with debility secondary to Right cerebellar infarct for greater of 3 hours of therapy daily with a goal of returning back home at or near her prior level of functional dependence. On 03/23/2019 patient presented to [facility] ED with symptoms of vertigo and nausea, Natty maneuver performed, which resolved patient's vertigo and nystagmus. Then patient had a abrupt onset headache, nausea and vomiting with mild slurred speech. Patient was admitted to [facility]. Testing obtained was Brain CT; subtle chronic changes of microvascular ischemia versus demyelinating process. Brain MRI; acute right cerebellar infarct measuring 4 x 1.7 cm of the inferior right cerebellar hemisphere, minimal mass effect on the brain stem. Head MRA; Occlusion of the right vertebral artery. Neck MRA; Occlusion of the right vertebral artery. EKG: Normal sinus rhythm, Minimal voltage criteria for LVH, may be normal variant, Nonspecific ST abnormality, Prolonged QT. TPA was not indicated. On 03/24/2019, patient was transferred to [facility] and patient was admitted to the Neurovascular service to Dr. Schwarz. On 03/25/2019 LDL 123, HgbA1c 5.2%. Patient was started on statin, edmundo and asa. 03/25/2019 CT angio of brain/neck; Occlusion of the right vertebral artery, with reconstitution intracranially at the V4 segment. 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 TTE was ordered at [facility], but no results available for review. NIHSS 0 on 03/25/2019. [facility] referred to patient to [facility] to increase strength and mobility. 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 Patient's rehab course uneventful, vertigo resolved and patient has increased strength and mobility to return home. 30 day event monitor placed on 04/04/2019, Dr. Castillo to follow. Patient to F/U with Neurology, PCP, and Cardiology. Meaningful Use Info Meaningful Use Diagnoses (Choose all that apply): Ischemic CVA - CVA Therapy Assessed for PT,OT and/or ST?: Yes - Ischemic Stroke Antithrombotic order at d/c?: Yes Dx of Atrial fib/flutter?: No Statins at discharge?: Yes Primary Dx Acute Ischemic CVA?: Yes IV tPA ordered during stay?: No Reason IV t-PA not ordered: Treatment not Indicated
--- NOTE | 2019-04-04 11:31 | CASEMGMT ---
Social Work SW spoke with team and all agreeable to pt d/c today. Pt would like outpt PT at [facility] and will need a wheeled walker. Referral made to [facility] and they will call pt to set appointment. Pt plans to pick walker up from [facility] office when she leaves hospital. Script given to pt and referral called to Jocelin at [facility]. No further d/c needs. Plan: D/C home 04/04/19 with outpt PT CITLALLI Newberry
--- NOTE | 2019-04-04 16:10 | NURSING ---
Went over discharge instructions, appts and medications pt verbalized understanding. Pt had 30 day event monitor placed before discharge. Pt. discharged home with daughter, picked up script from inpt. pharm., pt in stable condition.
--- NOTE | 2019-04-04 16:39 | CASEMGMT ---
Insurance left with insurance that pt d/c home today with outpt PT. Auth# [id number] CITLALLI Newberry
== END 2019-04-04 14:30 | disposition home or self-care (01) | DRG 57 ==
PROVIDERS: Admitting Provider Psychiatry & Neurology Neurology; Family Provider Student in an Organized Health Care Education/Training Program; PCP Student in an Organized Health Care Education/Training Program; Referring Provider Psychiatry & Neurology Neurology; Visit Provider Family Medicine
DX: I69.328 Other speech and language deficits following cerebral infarction (principal); E78.5 Hyperlipidemia, unspecified; K59.09 Other constipation; I10 Essential (primary) hypertension; I69.398 Other sequelae of cerebral infarction; E03.9 Hypothyroidism, unspecified; Z87.891 Personal history of nicotine dependence; H81.10 Benign paroxysmal vertigo, unspecified ear; M19.90 Unspecified osteoarthritis, unspecified site; F32.9 Major depressive disorder, single episode, unspecified; F41.9 Anxiety disorder, unspecified; B37.9 Candidiasis, unspecified
CPT/HCPCS: 36415; 80048; 85025; 92523; 92610; 97110; 97112; 97116; 97162; 97166; 97530; 97535; 97802

== ENCOUNTER 2019-05-10 15:00 | Outpatient (RCR) | payer OTHER, SELFPAY ==
--- NOTE | 2019-04-15 15:23 | HP.PTEVAL ---
Patient's Visit Information TRUMAN LAI is a 64 year old F referred to Physical Therapy by INGE Ko with a diagnosis of STOKE. Date of Evaluation: 04/15/19 Physical Therapist: Amber Zhu PT, Cert MDT - Visit Plan Frequency: 2-3x /Week Duration: 4-6 Weeks Plan: GAIT TRAINING. TRUNK AND TOM LE BALANCE, COORDINATION, ENDURANCE AND STRENGTH TRAINING TO HELP MEET SET GOALS. - Subjective Findings: S/P CVA MAR 23 2019. 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 Disability: NO. Present symptoms: NO PAIN. PATIENT REPORTS SHE JUST FEELS A LITTLE WIERD AND IT IS HARD TO DESCRIBE. UNSTEADY WALKING. USE TO PULL TO THE RIGHT BUT NOW IT DOESN'T. IMPROVING. NO NUMBNESS OR TINGLING. TINGLING IN BOTH HANDS WITH ONSET OF STROKE BUT GONE NOW. FEELS A LITTLE WEAK ALL OVER BUT NO SPECIFIC WEAKNESS. STATES SHE FEELS TIRED. Present since: MAR 23 2019 S/P CVA. Pain Scale: N/A. Commenced as a result of: NO APPARENT REASON. Symptoms at onset: THROWING UP, NECK WEAKNESS, TOM HAND TINGLING. WAS ALSO DIZZY. FELT VERY SICK AND WEAK ALL OVER. Worse: NO - TAKING IT VERY EASY. Better: RESTING. Previous history/Previous treatment: NO HISTORY OF STROKE OR VERTIGO IN THE PAST. Gait: USING WALKER AT ALL TIMES UNLESS SHE HAS SOMETHING TO HANG ON TO. Accidents: NO. Unexplained weight loss: NO. Imaging: MRI OF YOUR BRAIN SHOWING VERTEBRAL OCCLUTION ON RIGHT SIDE AT BASE OF BRAIN. PMH: DEPRESSION. NO RECENT SURGERY BUT RIGHT ROTATOR CUFF REPAIN 2014. H/O SEVERE SCIATICA ABOUT A YEAR AGO. PLOF (Prior Level of Function): UNLIMITED. SOCIAL: LIVES ALONE. INDEP AT HOME CURRENTLY. DAUGHTER IS A NURSE AND WORKS AT [employer]. OTHER: CURRENTLY WEARING 30 DAY HEART MONITOR. HAS BEEN WEARING IT SINCE APR 04 2019 AND WILL FOLLOW UP WITH NEEDLE PUNCH MACHINE OPERATOR HELPER. ROBIN'T WITH DR. RUIZ (PCP) MONDAY FOR FOLLOW UP. - Objective THIS PATIENT AMBULATES INDEP'LY INTO PT WITH A FWW AND GOOD CADANCE. DURING THIS SESSION SHE WALKED APPROX 300 FEET X 6. SHE IS ABLE TO TRANSFER INDEP'LY FROM SIT TO STAND WITHOUT UE ASSIST. STANDING STATIC BALANCE IS GOOD. DYNAMIC BALANCE IS FAIR WITHOUT ASSISTIVE DEVICE. SHE IS ABLE TO SLS X APPROX 15 SEC ON THE RIGHT LE WITHOUT UE ASSIST AND LEFT X APPROX 10 SEC. LEFT LE SLS TOOK MORE ATTEMPS AND WAS MORE DIFFICULT THAN ON RIGHT LE. SHE HAS POOR CORE STRENGTH AND TOM HIP WEAKNESS BUT MMT'ING OF KNEES AND ANKLES IS 5/5. HIPS GRADED 4-/5. TOM LE ROM WFL. PATIENT DEMO'S BEING ABLE TO STOOP OVER AND PICK WATER BOTTLE UP OFF THE FLOOR WITHOUT LOB BUT WITH ONE HAND ON WALKER. TOM LE LIGHT TOUCH SENSATION IS INTACT AND SYMMETRICAL. COORDINATION AND PROPRIOCEPTION ARE GOOD. GAIT TRAINING: PATIENT WAS SEEN TODAY FOR GAIT TRAINING ON LEVEL SURFACES AND UP AND DOWN STEPS WITH A STRAIGHT CANE. INSTRUCTED IN USE OF CANE IN RIGHT UE DUE TO MORE DIFFICULTY WITH BALANCE ON LLE COMPARED TO RIGHT. INDEP SAFE GAIT DEMONSTRATED ON STEPS WITH STEP TO PATTERN AFTER INSTRUCTIONS GIVEN. ALSO INSTRUCTED PATIENT IN PROPER HEIGHT ADJUSTMENT OF CANE BECAUSE SHE DOES NOT HAVE ONE AT THIS TIME AND WILL BE TRYING TO OBTAIN ONE. STRAIGHT CANE VS QUAD CANE RECOMMENDED. PATIENT DEMONSTRATED INDEP AND SAFE GAIT WITH CANE ON LEVEL SURFACES AND UP AND DOWN STEPS BUT STILL A LITTLE TENTATIVE WHICH IS UNDERSTANDABLE THIS IS HER FIRST TIME BEING TRAINED IN THE USE OF A CANE. RECOMMENDED CANE IN HOUSE ONLY AT THIS TIME FOR SAFETY. PATIENT AGREEABLE. PATIENT ASKED IF IT IS OK TO START WEEDING AND THIS PT RECOMMENDED SHE WAIT UNTIL SHE HAS A LEAST A LITTLE BIT MORE PT AND IS CLEARED BY THERAPIST. - Goals Goal 1:: INDEP AND SAFE GAIT UNLIMITED DISTANCES ON ALL SURFACES WITH LEAST ASSISTIVE DEVICE. Goal Time Frame: 4-6 Weeks Goal 2:: INCREASE FUNCTIONAL STRENGTH AND ENDURANCE OF CORE AND TOM LE'S Goal Time Frame: 4-6 Weeks Goal 3:: SUCCESSFUL TRANSITION BACK TO WORK Goal Time Frame: 4-6 Weeks Goal 4:: INDEP HEP FOR CONTINUED IMPROVEMENT ONCE FORMAL PHYSICAL THERAPY CONCLUDES. Goal Time Frame: 4-6 Weeks - Rehabilitation Potential Rehabilitation Potential: Good - Anticipated Interventions Patient/Client Instruction: Educate patient on: Condition, Plan of Care, Risk Factors, Benefits of Fitness Program For the Purpose of:: To improve self management Therapeutic Exercise to Include: Strength training, Endurance training, Balance training, Coordination, Postural training, Gait and locomotor training For the Purpose of:: To improve muscle performance and motor function, To increase tolerance to activity/condition/position, To improve ability of physical actions for home/community/work/leisure, To improve gait and locomotor functions, To improve endurance, To improve balance, To improve safety with gait, To improve safety Thank you for the opportunity to evaluate your patient. For Medicare and Medicare HMO plans, please review the plan of care and approve it. It will need to be FAXED BACK to us at [phone] for Medicare purposes. For Medicare only, by signing this I certify the plan of care. Please let me know if there are questions or concerns regarding this plan of care. Physician Signature: Date:
--- NOTE | 2019-05-10 15:15 | HP.PTDCSUM ---
HP - PT D/C Summary It has been my pleasure to treat TRUMAN LAI under orders from Jesika Rosenthal, INGE, for the diagnosis of STOKE for a total of 10 visit(s). Discharge Date: Please see the following information for a summary of their discharge status. - Subjective Subjective: PLANNING TO GO BACK TO WORK MAY 28 2019. FOLLOW UP WITH PCP AND NEUROLOGY - GOOD. FOLLOW UP WITH CARDIOLOGY NEXT WEEK. THINGS LOOKED GOOD ON HEART MONITOR. GOING TO FOLLOW UP WITH NEUROLOGY IN 6 MONTHS AND PCP ON DAY RETURNS TO WORK (6 HOURS). PATIENT REPORTS SHE IS DOING GOOD BUT EVERY ONCE IN AWHILE SHE GETS OFF BALANCE. DOES NOT FALL. SHE REPORTS THE INTENSE THERAPY HAS REALLY HELPED. STATES SHE STILL GETS TIRED BUT THE DOCTOR TOLD HER IT COULD TAKE A YEAR TO GET OVER THAT AND SHE IS LOW ON VITAMIN B12 AND D3 - TAKING SUPPLEMENTS. PATIENT REPORTS SHE IS DRIVING NOW AND SHE FEELS VERY COMFORTABLE DRIVING. SHE REPORTS SHE IS ALSO VERY COMFORTABLE WITH ALL OF HER EX'S AND CONTINUING ON HER OWN AT THIS POINT. - Overall Improvement % Improvement: 80 - Objective Objective/Function: ALL GOALS MET. PATIENT IS INDEP AND SAFE WITH GAIT WITHOUT AD NOW. TOM LE STRENGTH IS 5/5 WITH MMT'ING BUT SHE DOES STILL HAVE CORE WEAKNESS GRADED FAIR. SHE IS ABLE TO SLS ON EA LE WITHOUT UE ASSIST BUT WITH A LITTLE MORE DIFFICULTY LEFT COMPARED TO RIGHT. THIS GOT BETTER WITH PRACTICE AND HOME INSTRUCTIONS GIVEN FOR HOW TO SAFELY WORK ON THIS AT HOME. SHE IS INDEP WITH A GYM EX PROGRAM AND IS GETTING A MEMBERSHIP TODAY. PATIENT IS EXPRESSING BEING VERY HAPPY WITH HER TREATMENT. LEFS SCORE HAS IMPROVED FROM 32 TO 60. - Goals Goal 1:: INDEP AND SAFE GAIT UNLIMITED DISTANCES ON ALL SURFACES WITH LEAST ASSISTIVE DEVICE. Goal Progress: Goal Met Goal 2:: INCREASE FUNCTIONAL STRENGTH AND ENDURANCE OF CORE AND TOM LE'S Goal Progress: Goal Met Goal 3:: SUCCESSFUL TRANSITION BACK TO WORK Goal Progress: Progressing Goal 4:: INDEP HEP FOR CONTINUED IMPROVEMENT ONCE FORMAL PHYSICAL THERAPY CONCLUDES. Goal Progress: Goal Met - Plan Plan: D/C TO INDEP EX. PATIENT IS AGREEABLE. - D/C Information If there are questions or concerns regarding this patient's physical therapy, please feel free to call me at [phone]. Thank you for the referral of this patient. Sincerely, Amber Zhu, PT, Cert MDT
== END 2019-05-10 19:00 | disposition home or self-care (01) ==
LOC: PT 15:00
PROVIDERS: Family Provider Student in an Organized Health Care Education/Training Program; PCP Student in an Organized Health Care Education/Training Program; Referring Provider Nurse Practitioner Family; Visit Provider Nurse Practitioner Family
DX: Z86.73 Personal history of transient ischemic attack (TIA), and cerebral infarction without residual deficits (principal)
CPT/HCPCS: 97110; 97116; 97161; 97530

== ENCOUNTER → 2019-05-14 | Outpatient (CLI) | payer OTHER, SELFPAY ==
--- NOTE | 2019-05-14 15:03 | BI_ITS ---
MAMMOGRAPHY - BILATERAL SCREENING REASON FOR EXAM: Female, 64 years old. Routine annual screening examination. PERTINENT HISTORY: Aunt with breast cancer. Prior right stereotactic breast biopsy. TECHNIQUE: Digital bilateral breast [place] (3D mammographic acquisition) in the CC and MLO projections. 2-D mediolateral oblique (MLO) and craniocaudad (CC) views of both breasts were obtained. CAD: Full Field Digital Mammography with Computer Added Detection was performed. COMPARISON: Comparison is made with prior examination dated October 18, 2017. FINDINGS: Breast Composition: The breasts are heterogeneously dense, which may obscure small masses. There are no dominant masses or suspicious calcifications. No other significant abnormalities are identified. There has been no significant change since the prior study. BI/SCREEN MAMM (CAD) W/[place] BILAT IMPRESSION: Stable bilateral screening mammogram. Yearly follow-up mammogram recommended. (A) ASSESSMENT CATEGORY: BIRADS Category 1: Negative. A letter regarding these results will be sent to the patient by the facility within 30 days. Approximately 10% of breast cancers are not detected by mammography. A normal mammogram should not delay biopsy of a clinically suspicious abnormality. [id number] Electronically Signed: Rene Winn, at 16:00 EDT , Service support ,
== END | disposition home or self-care (01) ==
LOC: OPBI 14:30
PROVIDERS: Family Provider Student in an Organized Health Care Education/Training Program; PCP Student in an Organized Health Care Education/Training Program; Referring Provider Obstetrics & Gynecology Gynecology; Visit Provider Obstetrics & Gynecology Gynecology
DX: Z12.31 Encounter for screening mammogram for malignant neoplasm of breast (principal)
CPT/HCPCS: 77063; 77067

== ENCOUNTER → 2019-06-07 | Outpatient (CLI) | payer OTHER, SELFPAY ==
[2019-05-16 16:23] VITALS: BMI 25.4
--- NOTE | 2019-06-07 08:52 | ECHOCS_ITS ---
Reason For Study: TIA/CVA Procedure This was a 2D Doppler, Color Flow transthoracic echocardiogram. Contrast injection was performed. Exam performed in department. Left Ventricle Normal LV size. Left ventricular systolic function is normal. The estimated ejection fraction is 60 %. No evidence for diastolic dysfunction. No regional wall motion abnormalities noted. Right Ventricle Normal RV size. Normal systolic function. Atria Normal left atrium. Normal right atrium. No doppler evidence for ASD. Bubble contrast study negative for right to left interatrial shunt. Mitral Valve There is no mitral annular calcification. Normal mitral valve. Mild (1+) mitral valve insufficiency. Tricuspid Valve Normal tricuspid valve. Mild to moderate (1-2+) tricuspid valve insufficiency. Right ventricular systolic pressure estimated to be 27 mmHg. Aortic Valve Trisinus/trileaflet aortic valve. Normal aortic valve. Pulmonic Valve The pulmonic valve is not well visualized. Great Vessels Normal sized aortic root. Pericardium/Pleural No pericardial effusion. Medication Performed a rapid injection of agitated mix of 9 cc saline and 1cc air to assess for atrial septal defect. Diluted definity 3ml given slow IV push to enhance endocardial definition. MMode/2D Measurements & Calculations LVIDd: 4.6 cm IVSd: 0.83 cm Ao root diam: 3.2 cm LVIDs: 2.9 cm LVPWd: 0.86 cm RVDd: 3.6 cm FS: 36.9 % LAV(MOD-bp): 39.1 ml LVAd ap4: 32.5 cm2 SV(MOD-sp4): 61.9 ml LAV(MOD-bp) Indexed: 22.9 ml/m2 EDV(MOD-sp4): 110.1 ml LAV(MOD-sp2): 31.5 ml EDV(sp4-el): 113.7 ml LAV(MOD-sp4): 48.3 ml LVAs ap4: 19.3 cm2 ESV(MOD-sp4): 48.2 ml ESV(sp4-el): 49.5 ml EF(MOD-sp4): 56.2 % EF(sp4-el): 56.5 % SV(sp4-el): 64.2 ml LA A4 area: 17.3 cm2 LA dimension(2D): 3.4 cm RA A4 area: 15.8 cm2 Doppler Measurements & Calculations MV E max fantasma: 60.0 cm/sec Lat Peak E' Fantasma: 6.5 cm/sec Med Peak E' Fantasma: 4.6 cm/sec MV A max fantasma: 73.6 cm/sec E/E' lat: 9.2 E/E' med: 12.9 MV E/A: 0.82 Ao V2 max: 118.5 cm/sec LV V1 max: 86.4 cm/sec PA V2 max: 71.7 cm/sec Ao max P.6 mmHg LV V1 max P.0 mmHg Ao V2 mean: 87.1 cm/sec Ao mean P.3 mmHg Ao V2 VTI: 28.7 cm TR max fantasma: 245.5 cm/sec TR max P.1 mmHg Interpretation Summary Contrast injection was performed. Left ventricular systolic function is normal. The estimated ejection fraction is 60 %. Mild (1+) mitral valve insufficiency. Mild to moderate (1-2+) tricuspid valve insufficiency. Right ventricular systolic pressure estimated to be 27 mmHg. No evidence for diastolic dysfunction. Bubble contrast study negative for right to left interatrial shunt. Ordering Physician: Sai Castillo Referring Physician: Hakeem Sunshine Performed By: Zahraa Morales, MARTINE, RVT
== END | disposition home or self-care (01) ==
LOC: CVS 08:52
PROVIDERS: Family Provider Student in an Organized Health Care Education/Training Program; PCP Student in an Organized Health Care Education/Training Program; Referring Provider Internal Medicine Cardiovascular Disease; Visit Provider Internal Medicine Cardiovascular Disease
DX: R42 Dizziness and giddiness (principal); Z86.73 Personal history of transient ischemic attack (TIA), and cerebral infarction without residual deficits
CPT/HCPCS: 93306; Q9957; A4216; C8929

== ENCOUNTER → 2019-06-19 | Outpatient (CLI) | payer OTHER, SELFPAY ==
[2019-05-16 16:23] VITALS: BMI 25.4
[2019-06-19 16:25] LABS: ALB/GLOB Ratio 1.1 RATIO (0.9-2.4); AST(SGOT) 18 U/L (15-37); Alanine Aminotransfer ALT/SGPT 28 U/L (13-56); Albumin, Serum 3.6 g/dL (3.2-5.0); Alkaline Phosphatase 141 U/L (45-117); Anion Gap 8 (5-15); BUN 15 mg/dL (7-18); BUN/Creat Ratio 20.5 RATIO (10-20); Chloride 106 mmol/L (98-107); Creatinine, Serum 0.73 mg/dL (0.55-1.02); EST Glomerular Filtration Rate 85 mL/min (>60); Est Glom Filt Rate - Afr Amer 103 mL/min (>60); Globulin 3.4 g/dL (2.2-4.2); Glucose 120 mg/dL (74-106); Potassium 3.8 mmol/L (3.5-5.1); Sodium Level 141 mmol/L (136-145)
[2019-06-19 16:31] LABS: Vitamin B12 670 pg/mL (211-911); Vitamin D,25 Hydroxy 24.9 ng/mL (29.95-100.01)
== END | disposition home or self-care (01) ==
LOC: LAB 15:04
PROVIDERS: Family Provider Student in an Organized Health Care Education/Training Program; PCP Student in an Organized Health Care Education/Training Program; Referring Provider Student in an Organized Health Care Education/Training Program; Visit Provider Student in an Organized Health Care Education/Training Program
DX: E55.9 Vitamin D deficiency, unspecified (principal); E53.8 Deficiency of other specified B group vitamins
CPT/HCPCS: 36415; 80053; 82306; 82607

== ENCOUNTER → 2019-12-30 10:06 | Outpatient (CLI) | payer OTHER, SELFPAY ==
[2019-05-16 16:23] VITALS: BMI 25.4
[2019-12-30 11:52] LABS: Free T3 4.2 pg/mL (2.18-3.98); T4 Free Direct 0.95 ng/dL (0.76-1.46); Thyroid Stim Hormone (TSH) 0.31 uIU/mL (0.358-3.74)
== END ==
PROVIDERS: PCP Student in an Organized Health Care Education/Training Program; Visit Provider Student in an Organized Health Care Education/Training Program
DX: E03.9 Hypothyroidism, unspecified (principal); E55.9 Vitamin D deficiency, unspecified
CPT/HCPCS: 36415; 82306; 84439; 84443; 84481

== ENCOUNTER 2020-04-15 12:25 | Emergency (ER) | payer OTHER, SELFPAY ==
[2019-05-16 16:23] VITALS: BMI 25.4
[2020-04-15 12:26] VITALS: BP 153/81; PULSE 71; RESP 24; TEMP 36.2; O2SAT 97; BMI 26.9
--- NOTE | 2020-04-15 12:50 | RAD_ITS ---
STUDY: X-RAY - RIGHT ELBOW REASON FOR EXAM: Female, 65 years old. FELL ON CONCRETE. RIGHT ELBOW PAIN WITH POSTERIOR LAC TECHNIQUE: 3 view(s) of the elbow. COMPARISON: None. FINDINGS: Normal visualized humerus, radius and ulna. Normal radiocapitellar and ulnotrochlear articulations. Soft tissue laceration overlying the olecranon process of the proximal ulna. No radiopaque foreign body is seen. RAD/Elbow min 3 Views IMPRESSION: Soft tissue laceration overlying the olecranon process of the proximal ulna. No radiopaque foreign body is seen. Electronically Signed: Rene Winn, at 13:05 EDT , Service support ,
[2020-04-15] MEDS: Diphth,Pertuss(Acell),Tet Vac 0.5 ML Vial IM (13:02)
[2020-04-15] MEDS: Cefazolin 1 GM/50 ML BAG IV (13:19)
--- NOTE | 2020-04-15 14:49 | ED.VIS.INJ ---
History of Present Illness Chief Complaint: Fall Informant: Patient Onset: Today Mechanism/Context: Blunt Injury, Fall Quality of Pain: Aching, Throbbing Location: Right elbow Current Severity: Mild Maximum Severity: Severe - Movement or touch Worsened by: Movement Relieved by: Nothing Associated Symptoms: Loss of function. Negative for: Parasthesias, Weakness, Inability to ambulate, Loss of consciousness Tetanus Immunization: Unknown Prior similar symptoms: No Recent Illness/Hospitalization: No - Past Medical History (1) Benign paroxysmal positional vertigo Status: Acute (2) CVA (cerebral vascular accident) Status: Acute (3) Vertigo Status: Acute (4) Depression Status: Chronic (5) Hypothyroidism Status: Chronic Past Medical History - Allergies and Home Meds Allergies/Adverse Reactions: Allergies morphine Allergy (Mild, Verified 04/15/20 12:28) unknown sulfamethoxazole [From Bactrim] Allergy (Mild, Verified 04/15/20 12:28) unknown tea tree Allergy (Mild, Verified 04/15/20 12:28) unknown trimethoprim [From Bactrim] Allergy (Mild, Verified 04/15/20 12:28) unknown Primary Care Physician: Hakeem Broderick DO [Primary Care Provider] - Prior records reviewed: Yes Surgical History: rotator cuff repair, - - Wrist surgery; left foot surgery. Lives: Alone Smoking Status: Never smoker Alcohol: None Drugs: None - Family History Maternal Family History: Family History (Last Reviewed 05/16/19 @ 16:26 by Cynthia Doyle) Father Cancer Mother Hypertension Grandfather Heart disease Sister Cancer Family History: Reports: Diabetes, Dementia, Heart Disease, - - Maternal grandmother had brain aneurysm and subarachnoid hemorrhage Paternal Family History: Family History (Last Reviewed 05/16/19 @ 16:26 by Cynthia Doyle) Father Cancer Mother Hypertension Grandfather Heart disease Sister Cancer Family History: Reports: Cancer - Lung cancer Sibling Family History: Family History (Last Reviewed 05/16/19 @ 16:26 by Cynthia Doyle) Father Cancer Mother Hypertension Grandfather Heart disease Sister Cancer Family History: Reports: Cancer - Lung, Stroke Review of Systems Eyes: Denies: Visual changes - bilaterally, Blurred Vision - bilaterally Cardiovascular: Reports: Chest pain Respiratory: Reports: Dyspnea Gastrointestinal: Reports: Nausea, Vomiting Musculoskeletal: Reports: Swelling, Extremity Pain. Denies: Myalgias, Arthralgias, Neck pain, Back pain, -, - Neurological: Denies: Weakness, Parasthesia, Numbness Hematologic: Denies: Easy bruising, Easy bleeding Allergy: Denies: Uticaria, Swelling of the mouth Physical Exam Vital Signs/Narrative: Vital Signs Temp Pulse Resp BP Pulse Ox 04/15/20 12:26 97.1 F L 71 24 H 153/81 H 97 Inital Vital Signs reviewed: Yes General: Well nourished, Well developed Head: Normocephalic, Atraumatic. Negative for: Trauma, Tenderness Eyes: Perrl, EOMI. Negative for: Pale conjunctiva, Scleral icterus Neck: Nontender, Full ROM. Negative for: Spinal Tenderness, Paraspinal Tenderness Cardiovascular: Regular rate, Regular rhythm, No murmurs, Normal S1, Normal S2 Respiratory: No distress, CTA bilaterally, Chest nontender Abdomen: Soft, Nontender, Nondistended, Normal bowel sounds, No masses Rectal: Deferred Back: Nontender Extremeties: Patient has a 5.3 cm gaping laceration dorsal side right elbow. There is no pain the patient over the ileal epicondyle. There is no pain ovation over the radial head with supination pronation. She has pain ovation over the olecranon process and lateral epicondyle. Axillary, median, radial and ulnar function intact. Skin: Normal color, Trauma. Negative for: No rash, Cyanosis, Diaphoresis, Jaundice Neurological: Alert, Oriented x3, Cranial nerves II-XII grossly intact, Normal Strength, Normal Sensation Psychological: Normal affect, Normal Mood Diagnostic/Tx/Re-eval Chest X-Ray - ED: Read by ED Physician, - - X-ray was interpreted by me as negative for fracture, subluxation or dislocation. There is no foreign body noted. There is a large skin defect secondary laceration. - Medical Decision Making Because of the amount of tenderness and pain with motion x-ray was obtained to evaluate for fracture versus contusion. No fracture was noted. Please read procedure note for suture/laceration repair Procedures - Lacerations No standard instances Length: 2.09 in Depth: Fascia Shape: Linear Prep: Sterile Conditions, Pricilla-Clesrinath Laceration Repair: Lidocaine, Local Irrigated (ml): 500 - Will saline Number of Sutures/Tracy: 11 Suture Information: Vicryl, Ethilon, 4-0 Comment: 2 subcuticular stitches placed using 4-0 Vicryl. Skin was closed using 4-0 Ethilon, simple interrupted total of 11 ED Disposition - Plan for ED Patient: Disposition: Home or Assisted Living Diagnosis: Laceration of skin of right elbow, Contusion of right elbow, initial encounter Instructions: ED Laceration Ext Sutr Stap Tape Prescriptions: Cephalexin [Keflex] 500 mg PO 4X/DAY #16 cap Transmission Status: Pending to [facility] Referrals: Hakeem Broderick DO [Primary Care Provider] - Lovely Bansal DO [STAFF PHYSICIAN] - 2 Days for wound check Additional Instructions: 1. Keep laceration clean and dry 2. Clean wound with peroxide on a Q-tip 3 times a day then apply bacitracin ointment. 3. If you are unable to be seen by orthopedic surgeon in 2 days for wound check please return to the emergency department for wound check 4. Sutures out 14 days
== END 2020-04-15 15:24 | disposition home or self-care (01) ==
PROVIDERS: Emergency Provider Emergency Medicine; PCP Student in an Organized Health Care Education/Training Program
DX: S51.011A Laceration without foreign body of right elbow, initial encounter (principal); S50.01XA Contusion of right elbow, initial encounter; W19.XXXA Unspecified fall, initial encounter; Y93.9 Activity, unspecified; Y92.9 Unspecified place or not applicable; E03.9 Hypothyroidism, unspecified; F32.9 Major depressive disorder, single episode, unspecified; Z86.73 Personal history of transient ischemic attack (TIA), and cerebral infarction without residual deficits; Z79.82 Long term (current) use of aspirin; Z79.899 Other long term (current) drug therapy
CPT/HCPCS: 12002; 73080; 90471; 90715; 96365; 96366; 99285; J7050; A4216

== ENCOUNTER → 2020-09-23 10:06 | Outpatient (CLI) | payer OTHER, SELFPAY ==
--- NOTE | 2020-09-23 10:10 | RAD_ITS ---
HISTORY: PT GOT HAND PINCHED IN WHEELCHAIR 1 MONTH AGO, PAIN DISTAL THUMB INTO WRIST ADDITIONAL HISTORY: None provided. EXAMINATION/TECHNIQUE: XR Wrist Min 3 Views Left Number of images including paperwork: 3 COMPARISON: None FINDINGS: BONES: No acute fracture. Mineralization appears decreased. JOINTS: No subluxation. Mild degenerative changes of the radiocarpal and first carpometacarpal joints. SOFT TISSUES: No distinct foreign body. RAD/Wrist min 3 Views IMPRESSION: Degenerative changes without acute osseous abnormality. at 0013 Reported and signed by: Stefania White MD Electronically Signed: Stefania White MD at 0:13 EST Tel , Service support ,
== END ==
PROVIDERS: PCP Student in an Organized Health Care Education/Training Program; Referring Provider Orthopaedic Surgery; Visit Provider Orthopaedic Surgery
DX: M25.532 Pain in left wrist (principal)
CPT/HCPCS: 73110

== ENCOUNTER → 2020-09-23 10:58 | Outpatient (CLI) | payer OTHER, SELFPAY ==
[2020-05-01 08:49] VITALS: BMI 26.9
[2020-09-23 11:29] LABS: Absolute Lymphocyte Count 1.65 X10^3/uL (0.83-4.51); Absolute Neutrophil Count 3.4 X10^3/uL (2.0-7.7); Basophil# 0.05 X10^3/uL; Basophil% 0.9 % (0-1); Eosinophil# 0.15 X10^3/uL; Eosinophils% 2.6 % (0-5); Hematocrit 42.9 % (37-47); Hemoglobin 13.8 g/dL (12.0-15.0); Lymphocyte # 1.65 X10^3/ul (4.0); Lymphocyte % 28.8 % (19-41); Mean Corp Hgb Conc 32.2 g/dL (32-36); Mean Corpuscular Hgb 29.5 pg (27.0-32.0); Mean Corpuscular Volume 91.7 fL (81-99); Mean Platelet Vol. 9.8 fl (6.2-12.0); Monocyte# 0.49 X10^3/uL; Monocyte% 8.6 % (0-10); NRBC Flagged by Analyzer 0 % (0-5); Neutrophil # 3.37 X10^3/uL (2.7-7.7); Neutrophil % 58.9 % (47-70); Platelet Count 204 K/mm3 (150-450); RBC Distribution Width CV 12.5 % (11.6-14.6); RBC Distribution Width SD 42.4 fl (35.1-43.9); Red Blood Count 4.68 M/mm3 (4.2-5.4); White Blood Count 5.7 K/mm3 (4.4-11.0)
[2020-09-23 12:11] LABS: Vitamin B12 700 pg/mL (211-911); Vitamin D,25 Hydroxy 29.7 ng/mL
[2020-09-23 12:23] LABS: AST(SGOT) 18 U/L (15-37); Alanine Aminotransfer ALT/SGPT 30 U/L (13-56); Albumin, Serum 3.8 g/dL (3.2-5.0); Alkaline Phosphatase 126 U/L (45-117); Anion Gap 4 (5-15); BUN 13 mg/dL (7-18); BUN/Creat Ratio 23.3 RATIO (10-20); Calcium,Total 9.2 mg/dL (8.5-10.1); Chloride 105 mmol/L (98-107); Creatinine, Serum 0.56 mg/dL (0.55-1.02); EST Glomerular Filtration Rate 116 mL/min (>60); Est Glom Filt Rate - Afr Amer 141 mL/min (>60); Free T3 4.2 pg/mL (2.18-3.98); Globulin 3.7 g/dL (2.2-4.2); Glucose 87 mg/dL (74-106); Potassium 4.2 mmol/L (3.5-5.1); Protein, Total 7.5 g/dL (6.4-8.2); Sodium Level 138 mmol/L (136-145); T4 Free Direct 1.01 ng/dL (0.76-1.46); Thyroid Stim Hormone (TSH) 0.14 uIU/mL (0.358-3.74)
== END ==
PROVIDERS: PCP Student in an Organized Health Care Education/Training Program; Referring Provider Student in an Organized Health Care Education/Training Program; Visit Provider Student in an Organized Health Care Education/Training Program
DX: E55.9 Vitamin D deficiency, unspecified (principal); E03.9 Hypothyroidism, unspecified
CPT/HCPCS: 36415; 80053; 82306; 82607; 84439; 84443; 84481; 85025

== ENCOUNTER → 2020-09-29 | Outpatient (CLI) | payer OTHER, SELFPAY | END | disposition home or self-care (01) | LOC: LABSPEC 15:42 | PROVIDERS: PCP Student in an Organized Health Care Education/Training Program; Referring Provider Student in an Organized Health Care Education/Training Program; Visit Provider Student in an Organized Health Care Education/Training Program | DX: Z12.11 Encounter for screening for malignant neoplasm of colon (principal) | CPT/HCPCS: 82274 ==

== ENCOUNTER → 2020-12-16 13:18 | Outpatient (CLI) | payer OTHER, SELFPAY ==
[2020-12-16 13:50] LABS: Absolute Lymphocyte Count 1.67 X10^3/uL (0.83-4.51); Absolute Neutrophil Count 3.6 X10^3/uL (2.0-7.7); Basophil# 0.04 X10^3/uL; Basophil% 0.7 % (0-1); Eosinophil# 0.13 X10^3/uL; Eosinophils% 2.2 % (0-5); Hematocrit 43.6 % (37-47); Hemoglobin 14.1 g/dL (12.0-15.0); Lymphocyte # 1.67 X10^3/ul (4.0); Lymphocyte % 28.1 % (19-41); Mean Corp Hgb Conc 32.3 g/dL (32-36); Mean Corpuscular Hgb 29.4 pg (27.0-32.0); Mean Platelet Vol. 9.6 fl (6.2-12.0); Monocyte# 0.45 X10^3/uL; Monocyte% 7.6 % (0-10); NRBC Flagged by Analyzer 0 % (0-5); Neutrophil # 3.64 X10^3/uL (2.7-7.7); Neutrophil % 61.2 % (47-70); Platelet Count 195 K/mm3 (150-450); RBC Distribution Width CV 12.4 % (11.6-14.6); RBC Distribution Width SD 41.3 fl (35.1-43.9); Red Blood Count 4.79 M/mm3 (4.2-5.4); White Blood Count 5.9 K/mm3 (4.4-11.0)
[2020-12-16 14:31] LABS: Vitamin B12 903 pg/mL (211-911); Vitamin D,25 Hydroxy 39.1 ng/mL
[2020-12-16 14:37] LABS: ALB/GLOB Ratio 1.1 RATIO (0.9-2.4); AST(SGOT) 26 U/L (15-37); Alanine Aminotransfer ALT/SGPT 44 U/L (13-56); Alkaline Phosphatase 110 U/L (45-117); Anion Gap 3 (5-15); BUN 8 mg/dL (7-18); BUN/Creat Ratio 13.8 RATIO (10-20); Calcium,Total 9.3 mg/dL (8.5-10.1); Chloride 107 mmol/L (98-107); Creatinine, Serum 0.58 mg/dL (0.55-1.02); EST Glomerular Filtration Rate 111 mL/min (>60); Est Glom Filt Rate - Afr Amer 134 mL/min (>60); Free T3 3.8 pg/mL (2.18-3.98); Globulin 3.5 g/dL (2.2-4.2); Glucose 87 mg/dL (74-106); Magnesium 2.1 mg/dL (1.6-2.6); Potassium 4.2 mmol/L (3.5-5.1); Protein, Total 7.5 g/dL (6.4-8.2); Sodium Level 139 mmol/L (136-145); T4 Free Direct 0.95 ng/dL (0.76-1.46); Thyroid Stim Hormone (TSH) 0.36 uIU/mL (0.358-3.74)
== END ==
PROVIDERS: PCP Student in an Organized Health Care Education/Training Program; Referring Provider Student in an Organized Health Care Education/Training Program; Visit Provider Student in an Organized Health Care Education/Training Program
DX: E53.8 Deficiency of other specified B group vitamins (principal); E03.9 Hypothyroidism, unspecified; E55.9 Vitamin D deficiency, unspecified; R25.2 Cramp and spasm
CPT/HCPCS: 36415; 80053; 82306; 82607; 83735; 84439; 84443; 84481; 85025

== ENCOUNTER → 2021-06-16 12:39 | Outpatient (CLI) | payer MEDICARE, OTHER, SELFPAY ==
--- NOTE | 2021-06-16 13:15 | RAD_ITS ---
STUDY: X-RAY - CERVICAL SPINE REASON FOR EXAM: Female, 66 years old. DDD,OSTEOARTHRITIS OF SPINE W/RADICULOPATHY,CERVICAL REGION TECHNIQUE: 5 view(s) of the cervical spine were obtained. COMPARISON: None FINDINGS: Normal anterior atlantoaxial articulation. Normal odontoid process. Normal cervical lordosis. 2 mm retrolisthesis of C4 on C5. There is multi-level endplate spondylosis. There is multi-level degenerative disc disease with multilevel disc space narrowing. Normal visualized intervertebral neuroforamina. The soft tissue structures are unremarkable. RAD/Cerv Spine 4 or 5 Views IMPRESSION: Moderate diffuse degenerative disc disease with 2 mm retrolisthesis of C4 on C5. Electronically Signed: Alin العلي MD at 16:49 EDT Tel , Service support ,
[2021-06-16 13:39] LABS: Absolute Lymphocyte Count 1.94 X10^3/uL (0.83-4.51); Absolute Neutrophil Count 4.5 X10^3/uL (2.0-7.7); Basophil# 0.05 X10^3/uL; Basophil% 0.7 % (0-1); Eosinophil# 0.13 X10^3/uL; Eosinophils% 1.8 % (0-5); Hematocrit 42.8 % (37-47); Lymphocyte # 1.94 X10^3/ul (0.83-4.51); Lymphocyte % 27.1 % (19-41); Mean Corp Hgb Conc 32.7 g/dL (32-36); Mean Corpuscular Hgb 30.1 pg (27.0-32.0); Mean Platelet Vol. 10.2 fl (6.2-12.0); Monocyte# 0.49 X10^3/uL; Monocyte% 6.9 % (0-10); NRBC Flagged by Analyzer 0 % (0-5); Neutrophil # 4.52 X10^3/uL (2.7-7.7); Neutrophil % 63.2 % (47-70); Platelet Count 217 K/mm3 (150-450); Red Blood Count 4.65 M/mm3 (4.2-5.4); White Blood Count 7.2 K/mm3 (4.4-11.0)
[2021-06-16 14:20] LABS: ALB/GLOB Ratio 1.1 RATIO (0.9-2.4); AST(SGOT) 20 U/L (15-37); Alanine Aminotransfer ALT/SGPT 29 U/L (13-56); Albumin, Serum 3.8 g/dL (3.2-5.0); Alkaline Phosphatase 125 U/L (45-117); Anion Gap 5 (5-15); BUN 10 mg/dL (7-18); BUN/Creat Ratio 20.2 RATIO (10-20); Calcium,Total 9.3 mg/dL (8.5-10.1); Chloride 106 mmol/L (98-107); Creatinine, Serum 0.49 mg/dL (0.55-1.02); EST Glomerular Filtration Rate 133 mL/min (>60); Est Glom Filt Rate - Afr Amer 161 mL/min (>60); Free T3 4.6 pg/mL (2.18-3.98); Globulin 3.6 g/dL (2.2-4.2); Glucose 92 mg/dL (74-106); Potassium 4.7 mmol/L (3.5-5.1); Protein, Total 7.4 g/dL (6.4-8.2); Sodium Level 141 mmol/L (136-145); T4 Free Direct 1.06 ng/dL (0.76-1.46); Thyroid Stim Hormone (TSH) 0.04 uIU/mL (0.358-3.74)
== END ==
PROVIDERS: PCP Student in an Organized Health Care Education/Training Program; Referring Provider Student in an Organized Health Care Education/Training Program; Visit Provider Student in an Organized Health Care Education/Training Program
DX: M47.22 Other spondylosis with radiculopathy, cervical region (principal); E03.9 Hypothyroidism, unspecified; M50.30 Other cervical disc degeneration, unspecified cervical region
CPT/HCPCS: 36415; 72050; 80053; 84439; 84443; 84481; 85025

== ENCOUNTER → 2021-09-16 08:19 | Outpatient (CLI) | payer MEDICARE, OTHER, SELFPAY ==
[2021-09-16 08:54] LABS: Bacteria 0 SEEN /hpf (None Seen); Mucous, Urine 0 SEEN /hpf (<or=2+); Red Blood Cells-Urine 0 SEEN /hpf (0-5); Squamous Epithelial Cells - UA 0 SEEN /hpf (5-10)
[2021-09-16 09:30] LABS: Color, Urine Yellow (Yellow); Glucose, Dipstick Normal (Normal); Ketone-Dipstick Negative (Negative); Leukocyte Esterase-Dipstick 25 /ul (Negative); Nitrite-Dipstick Negative (Negative); Occult Blood-Urine Negative /ul (Negative); Protein-Dipstick Negative (Negative); Urine Bilirubin Dipstick Negative (Negative); Urine Clarity Sl. Cloudy (Clear); Urine Urobilinogen Normal (Normal); Urine pH 6.5 (5.0 - 8.0)
[2021-09-16 09:31] LABS: Absolute Lymphocyte Count 1.43 X10^3/uL (0.83-4.51); Absolute Neutrophil Count 2.9 X10^3/uL (2.0-7.7); Basophil# 0.05 X10^3/uL; Eosinophil# 0.12 X10^3/uL; Eosinophils% 2.5 % (0-5); Hematocrit 41.7 % (37-47); Hemoglobin 13.8 g/dL (12.0-15.0); Lymphocyte # 1.43 X10^3/ul (0.83-4.51); Lymphocyte % 29.4 % (19-41); Mean Corp Hgb Conc 33.1 g/dL (32-36); Mean Corpuscular Hgb 30.1 pg (27.0-32.0); Mean Platelet Vol. 9.8 fl (6.2-12.0); Monocyte# 0.36 X10^3/uL; Monocyte% 7.4 % (0-10); NRBC Flagged by Analyzer 0 % (0-5); Neutrophil # 2.89 X10^3/uL (2.7-7.7); Neutrophil % 59.5 % (47-70); Platelet Count 224 K/mm3 (150-450); RBC Distribution Width CV 12.1 % (11.6-14.6); Red Blood Count 4.58 M/mm3 (4.2-5.4); White Blood Count 4.9 K/mm3 (4.4-11.0)
[2021-09-16 09:37] LABS: White Blood Cells 0-5 SEEN /hpf (0-5)
[2021-09-16 09:52] LABS: Hemoglobin A1c 5.2 % (3.8-5.6)
[2021-09-16 10:21] LABS: ALB/GLOB Ratio 0.9 RATIO (0.9-2.4); AST(SGOT) 18 U/L (15-37); Alanine Aminotransfer ALT/SGPT 28 U/L (13-56); Albumin, Serum 3.5 g/dL (3.2-5.0); Alkaline Phosphatase 111 U/L (45-117); Anion Gap 7 (5-15); BUN 14 mg/dL (7-18); BUN/Creat Ratio 23.6 RATIO (10-20); Calcium,Total 8.8 mg/dL (8.5-10.1); Chloride 104 mmol/L (98-107); Cholesterol 225 mg/dL (200); Creatinine, Serum 0.59 mg/dL (0.55-1.02); EST Glomerular Filtration Rate 108 mL/min (>60); Est Glom Filt Rate - Afr Amer 131 mL/min (>60); Free T3 5.7 pg/mL (2.18-3.98); Globulin 3.8 g/dL (2.2-4.2); Glucose 88 mg/dL (74-106); High Density Lipoprotein 79 mg/dL; Potassium 3.8 mmol/L (3.5-5.1); Protein, Total 7.3 g/dL (6.4-8.2); Sodium Level 140 mmol/L (136-145); T4 Free Direct 1.02 ng/dL (0.76-1.46); Thyroid Stim Hormone (TSH) 0.33 uIU/mL (0.358-3.74); Triglycerides 35 mg/dL; Very Low Density Lipoprotein 7 mg/dL (5-40)
[2021-09-16 10:51] LABS: Vitamin B12 494 pg/mL (211-911); Vitamin D,25 Hydroxy 49.9 ng/mL
[2021-09-21 12:24] LABS: Arsenic 7245 2 ug/L (2-23); Lead, Blood < 1 ug/dL (0-4); Mercury, Blood 85324 2.2 ug/L (0.0-14.9)
== END ==
PROVIDERS: PCP Student in an Organized Health Care Education/Training Program; Referring Provider Student in an Organized Health Care Education/Training Program; Visit Provider Student in an Organized Health Care Education/Training Program
DX: E53.8 Deficiency of other specified B group vitamins (principal); E03.9 Hypothyroidism, unspecified; R73.9 Hyperglycemia, unspecified; E55.9 Vitamin D deficiency, unspecified; E78.5 Hyperlipidemia, unspecified; Z77.018 Contact with and (suspected) exposure to other hazardous metals
CPT/HCPCS: 36415; 80053; 80061; 81001; 82175; 82306; 82607; 83036; 83655; 83825; 84439; 84443; 84481; 85025

== ENCOUNTER → 2023-12-12 | Outpatient (CLI) | payer MEDICARE, SELFPAY ==
--- NOTE | 2023-12-12 12:50 | RAD_ITS ---
INDICATION: Shortness of breath EXAMINATION/TECHNIQUE: X-RAY - XR Chest 2 Views COMPARISON: No relevant prior comparison study available FINDINGS: LINES/DEVICES: None. LUNGS: No consolidation, edema or effusion. No pneumothorax. MEDIASTINUM AND CARDIOVASCULAR STRUCTURES: Cardiac silhouette not enlarged. Central airways and mediastinal contour are unremarkable. BONES AND SOFT TISSUES: Unremarkable. RAD/Chest PA and Lateral IMPRESSION: No radiographic evidence of acute cardiopulmonary disease. Electronically Signed: Brian Leslie MD at 9:45 EST ,
--- NOTE | 2023-12-12 12:52 | ECHOD_ITS ---
Reason For Study: SOB Procedure This was a 2D Doppler, Color Flow transthoracic echocardiogram. Exam performed in department. Left Ventricle Normal size and thickness. The left ventricular ejection fraction is 60 %. Normal diastology for age. Right Ventricle Normal right ventricle. Atria Normal left atrium. The right atrium is mildly enlarged. Mitral Valve Trivial mitral valve insufficiency. Tricuspid Valve Moderate to severe tricuspid valve regurgitation. Right ventricular systolic pressure estimated to be 37 mmHg. Aortic Valve Trisinus/trileaflet aortic valve. Pulmonic Valve The pulmonic valve is not well visualized. Great Vessels Normal sized aortic root. Pericardium/Pleural No pericardial effusion. MMode/2D Measurements & Calculations LVIDd: 4.7 cm IVSd: 0.74 cm Ao root diam: 3.2 cm LVIDs: 3.0 cm LVPWd: 0.80 cm RVDd: 3.3 cm FS: 35.8 % LAV(MOD-bp): 49.9 ml LVAd ap4: 26.6 cm2 LVAd ap2: 22.8 cm2 LAV(MOD-bp) Indexed: 32.0 ml/m2 LVLd ap4: 7.5 cm LVLd ap2: 7.6 cm LAV(MOD-sp2): 49.8 ml EDV(MOD-sp4): 78.7 ml EDV(MOD-sp2): 55.7 ml LAV(MOD-sp4): 38.7 ml EDV(sp4-el): 80.7 ml EDV(sp2-el): 58.3 ml LVAs ap4: 15.4 cm2 LVAs ap2: 14.3 cm2 LVLs ap4: 6.1 cm LVLs ap2: 6.8 cm ESV(MOD-sp4): 33.8 ml ESV(MOD-sp2): 25.4 ml ESV(sp4-el): 33.1 ml ESV(sp2-el): 25.6 ml EF(MOD-sp4): 57.0 % EF(MOD-sp2): 54.4 % EF(sp4-el): 58.9 % SV(MOD-sp4): 44.9 ml SV(MOD-sp2): 30.3 ml SV(sp4-el): 47.5 ml LA dimension(2D): 2.8 cm LA A4 area: 14.3 cm2 RA A4 area: 16.4 cm2 TAPSE: 2.8 cm Time Measurements MV dec time: 0.20 sec Doppler Measurements & Calculations MV E max fantasma: 76.6 cm/sec Lat Peak E' Fantasma: 9.6 cm/sec Med Peak E' Fantasma: 9.7 cm/sec MV A max fantasma: 84.1 cm/sec E/E' lat: 8.0 E/E' med: 7.9 MV E/A: 0.91 MV V2 max: 89.3 cm/sec MV P1/2t max fantasma: 93.1 cm/sec Ao V2 max: 127.8 cm/sec MV max P.2 mmHg MV P1/2t: 72.8 msec Ao max P.5 mmHg MV V2 mean: 46.0 cm/sec MV dec slope: 374.4 cm/sec2 Ao V2 mean: 85.6 cm/sec MV mean P.1 mmHg Ao mean P.4 mmHg MV V2 VTI: 28.1 cm MVA(P1/2t): 3.0 cm2 Ao V2 VTI: 33.8 cm AV (velocity ratio): 0.77 LV V1 max: 101.0 cm/sec PA V2 max: 83.8 cm/sec TR max fantasma: 235.1 cm/sec LV V1 max P.1 mmHg PA V2 mean: 57.2 cm/sec TR max P.1 mmHg LV V1 mean P.3 mmHg LV V1 mean: 72.1 cm/sec LV V1 VTI: 26.2 cm ECHO/Echo Complete Interpretation Summary The left ventricular ejection fraction is 60 %. The right atrium is mildly enlarged. Moderate to severe tricuspid valve regurgitation Right ventricular systolic pressure estimated to be 37 mmHg. Ordering Physician: Hakeem Broderick Referring Physician: Hakeem Broderick Performed By: Uyen Byrd, EVINCS, RVT
== END | disposition home or self-care (01) ==
PROVIDERS: PCP Student in an Organized Health Care Education/Training Program; Referring Provider Student in an Organized Health Care Education/Training Program; Visit Provider Student in an Organized Health Care Education/Training Program
DX: R06.02 Shortness of breath (principal)
CPT/HCPCS: 71046; 93306

== ENCOUNTER → 2024-04-10 | Outpatient (CLI) | payer MEDICARE, SELFPAY ==
--- NOTE | 2024-04-10 14:27 | CT_ITS ---
EXAM: CT RIGHT LOWER EXTREMITY WITHOUT INTRAVENOUS CONTRAST, FOOT CLINICAL INDICATION: PSEUDOARTHROSIS AFTER FUSION TECHNIQUE: Helically acquired images were obtained of the right foot without intravenous contrast. CTDIvol = ( 15.35 ) mGy, DLP = ( 351.15 ) mGycm This CT exam was performed using one or more of the following dose reduction techniques: automated exposure control, adjustment of the mA and/or kV according to patient size, and/or use of iterative reconstruction technique. COMPARISON: Single FINDINGS: BONES/JOINTS: Dorsal plate and screw fusion across the first metatarsophalangeal joint with bony bridging identified across the joint space. No palpitations. No acute fracture. No subluxation. Normal alignment. No sclerotic or destructive changes. SOFT TISSUES: Unremarkable. No radiopaque foreign body. No soft tissue masses or fluid collections. TUBES, LINES AND DEVICES: Single small cannulated screw is identified at extending across the second metatarsal tarsal head from a dorsal approach. The associated metatarsal head/neck appears healed. CT/Extremity Lower without Contra IMPRESSION: Dorsal plate and screw fusion across the first metatarsophalangeal joint with bony bridging identified across the joint space. No palpitations. Electronically Signed: Wesley Childress MD at 15:16 EDT ,
== END | disposition home or self-care (01) ==
PROVIDERS: PCP Student in an Organized Health Care Education/Training Program
DX: M96.0 Pseudarthrosis after fusion or arthrodesis (principal)
CPT/HCPCS: 73700

== ENCOUNTER → 2024-04-30 | Outpatient (CLI) | payer MEDICARE, SELFPAY ==
--- NOTE | 2024-04-30 09:15 | BD_ITS ---
STUDY: DUAL ENERGY X-RAY ABSORPTIOMETRY / DXA REASON FOR EXAM: Female, 69 years old. M85.89 TECHNIQUE: Bone Mineral Density (BMD) measurements of lumbar spine and bilateral hips were obtained. COMPARISON: None. FINDINGS: Lumbar Spine (L1-L4): g/cm2 (1.016) / T-score (0.3) / Z-score (2.2) Findings are suggestive of normal bone density with a low fracture risk. Left Femur Total: g/cm2 (0.821) / T-score (-1.0) / Z-score (0.4) Left Femoral Neck: g/cm2 (0.668) / T-score (-1.6) / Z-score (0.1) Right Femur Total: g/cm2 (0.791) / T-score (-1.2) / Z-score (0.2) Right Femoral Neck: g/cm2 (0.718) / T-score (-1.2) / Z-score (0.5) BD/Dexa Bone Density Study IMPRESSION: The patient is considered osteopenic as outlined below according to World Samuel Organization (WHO) criteria with a low fracture risk. Reference Information: The T-score is the number of standard deviations above or below the standard which is normal for young adults at their peak bone mineral density. The World Health Organization (WHO) interprets the T-scores as follows: Above -1 Normal bone density Between -1 and -2.5 Osteopenia Equal to / or below -2.5 Osteoporosis As a practical clinical guideline, osteopenia may be graded as follows: Mild -1 through -1.5 Moderate -1.6 through -2.0 Severe -2.1 through -2.4 The Z-score is the number of standard deviations above or below age-matched controls. A Z-score of less than -1.5 would be considered abnormal. References: 1. NIH Osteoporosis and Related Bone Diseases www osteo.org 2. International Society for Clinical Densitometry www iscd.org 3. National Osteoporosis Foundation www nof.org Electronically Signed: Rene Winn MD at 8:51 EDT ,
== END | disposition home or self-care (01) ==
PROVIDERS: PCP Student in an Organized Health Care Education/Training Program
DX: M85.89 Other specified disorders of bone density and structure, multiple sites (principal)
CPT/HCPCS: 77080

== ENCOUNTER → 2025-01-02 | Outpatient (CLI) | payer MEDICARE, SELFPAY ==
--- NOTE | 2025-01-02 08:48 | ECHOD_ITS ---
Reason For Study Reason For Study: SOB Procedure This was a 2D Doppler, Color Flow transthoracic echocardiogram. Exam performed in department. Left Ventricle Normal LV size. The estimated ejection fraction is 65 %. No evidence for diastolic dysfunction. No regional wall motion abnormalities noted. Right Ventricle Normal RV size. Normal systolic function. Atria The left and right atria are normal. No doppler evidence for ASD. Mitral Valve There is no mitral valve stenosis. No mitral valve insufficiency. Tricuspid Valve There is no tricuspid stenosis. Mild to moderate (1-2+) tricuspid valve insufficiency. Pulmonary artery systolic pressure is 30 mmHg. Aortic Valve Trisinus/trileaflet aortic valve. There is no aortic stenosis. No aortic valve insufficiency. Pulmonic Valve There is no pulmonic valvular stenosis. No pulmonic valve insufficiency. Great Vessels Normal sized aortic root. Pericardium/Pleural No pericardial effusion. MMode/2D Measurements & Calculations LVIDd: 3.9 cm IVSd: 1.1 cm Ao root diam: 3.2 cm LVIDs: 2.0 cm LVPWd: 1.0 cm RVDd: 3.4 cm FS: 48.5 % LAV(MOD-bp): 46.2 ml LVAd ap4: 25.6 cm2 LVAd ap2: 24.3 cm2 LAV(MOD-bp) Indexed: 29.3 ml/m2 LVLd ap4: 7.7 cm LVLd ap2: 7.6 cm LAV(MOD-sp2): 43.5 ml EDV(MOD-sp4): 72.0 ml EDV(MOD-sp2): 65.8 ml LAV(MOD-sp4): 50.9 ml EDV(sp4-el): 72.2 ml EDV(sp2-el): 66.3 ml LVAs ap4: 12.7 cm2 LVAs ap2: 13.8 cm2 LVLs ap4: 6.3 cm LVLs ap2: 6.7 cm ESV(MOD-sp4): 23.0 ml ESV(MOD-sp2): 24.4 ml ESV(sp4-el): 21.6 ml ESV(sp2-el): 24.4 ml EF(MOD-sp4): 68.0 % EF(MOD-sp2): 63.0 % EF(sp4-el): 70.1 % SV(MOD-sp4): 49.0 ml SV(MOD-sp2): 41.4 ml SV(sp4-el): 50.6 ml SI(MOD-sp4): 31.1 ml/m2 SI(MOD-sp2): 26.3 ml/m2 LA A4 area: 18.4 cm2 LA dimension(2D): 3.2 cm RA A4 area: 17.1 cm2 TAPSE: 2.9 cm Time Measurements MV dec time: 0.21 sec Doppler Measurements & Calculations MV E max fantasma: 81.5 cm/sec Lat Peak E' Fantasma: 10.2 cm/sec Med Peak E' Fantasma: 9.0 cm/sec MV A max fantasma: 103.8 cm/sec E/E' lat: 8.0 E/E' med: 9.1 MV E/A: 0.79 Ao V2 max: 165.3 cm/sec LV V1 max: 113.9 cm/sec MV dec slope: 379.7 cm/sec2 Ao max P.9 mmHg LV V1 max P.2 mmHg Ao V2 mean: 102.6 cm/sec LV V1 mean P.5 mmHg Ao mean P.9 mmHg LV V1 mean: 73.4 cm/sec Ao V2 VTI: 35.7 cm LV V1 VTI: 26.0 cm AV (velocity ratio): 0.73 PA V2 max: 86.7 cm/sec TR max fantasma: 268.9 cm/sec TR max P.9 mmHg ECHO/Echo Complete Interpretation Summary The estimated ejection fraction is 65 %. No evidence for diastolic dysfunction. Mild to moderate (1-2+) tricuspid valve insufficiency. Ordering Physician: Hakeem Broderick Referring Physician: Hakeem Broderick Performed By: Amy Philippe, LI
== END | disposition home or self-care (01) ==
LOC: CVS 08:47
PROVIDERS: PCP Student in an Organized Health Care Education/Training Program; Referring Provider Student in an Organized Health Care Education/Training Program; Visit Provider Student in an Organized Health Care Education/Training Program
DX: R06.09 Other forms of dyspnea (principal); I07.1 Rheumatic tricuspid insufficiency
CPT/HCPCS: 93306

== ENCOUNTER → 2025-03-19 | Outpatient (CLI) | payer MEDICARE, SELFPAY | END | disposition home or self-care (01) | LOC: SL 20:00 | PROVIDERS: PCP Student in an Organized Health Care Education/Training Program; Referring Provider Student in an Organized Health Care Education/Training Program; Visit Provider Student in an Organized Health Care Education/Training Program | DX: G47.33 Obstructive sleep apnea (adult) (pediatric) (principal) | CPT/HCPCS: 95811 ==

== ENCOUNTER → 2025-05-08 | Outpatient (CLI) | payer MEDICARE, SELFPAY | END | disposition home or self-care (01) | LOC: SL 09:25 | PROVIDERS: PCP Student in an Organized Health Care Education/Training Program; Referring Provider Nurse Practitioner Family; Visit Provider Nurse Practitioner Family | DX: G47.33 Obstructive sleep apnea (adult) (pediatric) (principal) | CPT/HCPCS: 95806 ==

== ENCOUNTER → 2025-09-23 | Outpatient (CLI) | payer MEDICARE, SELFPAY | END | disposition home or self-care (01) | LOC: PSN 08:42 | PROVIDERS: PCP Student in an Organized Health Care Education/Training Program; Referring Provider Nurse Practitioner Acute Care; Visit Provider Nurse Practitioner Acute Care | DX: R06.02 Shortness of breath (principal) | CPT/HCPCS: 94060; 94726; 94729 ==

== ENCOUNTER → 2025-09-30 | Outpatient (CLI) | payer MEDICARE, SELFPAY ==
[2025-09-30 12:30] VITALS: PULSE 106; PULSE 79; PULSE 82; PULSE 86; PULSE 95; PULSE 99; O2SAT 95; O2SAT 96; O2SAT 98; O2SAT 99
--- NOTE | 2025-10-03 09:17 | PCM.PSN.6M ---
PSN 6 Minute Walk Test 6 Minute Walk Test 6 Minute Walk Test: 6 Minute Walk Test PSN:6-Minute Walk Test Start: 09/30/25 12:46 Freq: Status: Active Protocol: [id number] Document 09/30/25 12:30 [facility] (Rec: 09/30/25 12:58 [facility] [id number]) 6 Minute Walk Test Date Performed 09/30/25 Time Performed 12:30 Height 5 ft 4 in Weight: 125 lb Weight in Pounds 125.[address]: Ras Assistive device None used: Pre-test Oxygen Delivery Room Air Method Pulse Ox (%) 96 Pulse Rate (60-100 79 beats/min) Dyspnea Rohan Scale ( 0.5 0-10) Exertion Rohan Scale 6 (6-20) 1st minute Oxygen Delivery Room Air Method Pulse Ox (%) 95 Pulse Rate (60-100 82 beats/min) 2nd minute Oxygen Delivery Room Air Method Pulse Ox (%) 98 Pulse Rate (60-100 86 beats/min) 3rd minute Oxygen Delivery Room Air Method Pulse Ox (%) 98 Pulse Rate (60-100 95 beats/min) 4th minute Oxygen Delivery Room Air Method Pulse Ox (%) 98 Pulse Rate (60-100 99 beats/min) 5th minute Oxygen Delivery Room Air Method Pulse Ox (%) 98 Pulse Rate (60-100 106 H beats/min) 6th minute Oxygen Delivery Room Air Method Pulse Ox (%) 99 Pulse Rate (60-100 106 H beats/min) Dyspnea Rohan Scale ( 0.5 0-10) Exertion Rohan Scale 8 (6-20) Post-test Oxygen Delivery Room Air Method Pulse Ox (%) 99 Pulse Rate (60-100 79 beats/min) Full Laps Walked 23 Partial Lap, Number 18 of Tiles Walked Total Distance 1375 Walked (ft) Interpretation Interpretation: The patient ambulated 1375 feet over the course of 6 minutes beginning on room air without assistive devices. Pretesting oxygen saturation was noted to be 96% on room air. With ambulation, the roberto oxygen saturation was 95%. There was no significant exertional oxygen desaturation. Recommendations Recommendations: There is no indication for the use of supplemental oxygen at this time.
== END | disposition home or self-care (01) ==
LOC: PSN 12:23
PROVIDERS: PCP Student in an Organized Health Care Education/Training Program; Referring Provider Nurse Practitioner Acute Care; Visit Provider Nurse Practitioner Acute Care
DX: R06.02 Shortness of breath (principal)
CPT/HCPCS: 94618

== ENCOUNTER → 2025-10-20 | Outpatient (CLI) | payer MEDICARE, SELFPAY | END | disposition home or self-care (01) | LOC: SL 20:16 | PROVIDERS: PCP Student in an Organized Health Care Education/Training Program; Referring Provider Nurse Practitioner Acute Care; Visit Provider Nurse Practitioner Acute Care | DX: G47.33 Obstructive sleep apnea (adult) (pediatric) (principal) | CPT/HCPCS: 95811 ==